=== PATIENT | female | born 1935 | race African-American/Black ===

== ENCOUNTER 2016-05-30 18:06 | Emergency (ER) | payer MEDICARE ==
[~2016-05-30] VITALS: Ht 160 cm; Wt 134.0 kg
[~2016-05-30 18:06] MED LIST: AMIT50TA13 PO; DARV PO; GLIM1 PO; LORT5TAB PO; MELO7.5T PO; MEVA40TA6 PO; PRIN10TA PO; [UNRECOGNIZED DRUG - CODE] PO
[2016-05-30 18:09] VITALS: BP 141/74; PULSE 99; RESP 16; TEMP 98.7; O2SAT 97
--- NOTE | 2016-05-30 20:43 | PD ---
HPI Chief Complaint: [facility] Nurse Problem/Complaint Time Seen by Provider: 20:17 Travel History International Travel<30 days: No Contact w/Intl Traveler<30days: No Traveled to known affect area: No History of Present Illness HPI The patient is a 80-year-old female G7, P6, [id number] who complains of vaginal bleeding one day last week and then again this afternoon. She denies any syncopal or near-syncopal spells. She has an appointment with her clinical dietitian on Thursday. She has not been getting annual Pap smears. She denies any fever or pelvic pain. PFSH Past Medical History Arthritis: Yes Autoimmune Disease: No Cancer: No High Cholesterol: Yes Diabetes: Yes Diminished Hearing: No Gastrointestinal Disorders: No Headaches: Yes Hypertension: Yes Respiratory: No Menopausal: Yes Tubal Ligation: Yes Past Surgical History Gynecologic Surgery: Yes Family History Family Hypercholesterolemia: Yes Social History Alcohol Use: Yes (BEER ) Tobacco Use: No Substance Use: No Allergies-Medications (Allergen,Severity, Reaction): Coded Allergies: Shellfish (Verified Allergy, Severe, SWELLING, DYSPNEA, 05/30/16) Reported Meds & Prescriptions Reported Meds & Active Scripts Active Reported Fish Oil ([place]-3 Fatty Acids) 1,000 Mg Cap 1,000 Mg PO DAILY Zetia (Ezetimibe) 10 Mg Tab 10 Mg PO DAILY Spironolactone-Hydrochlorothiazide 25-25 Mg Tab 1 Tab PO DAILY Aspirin 325 Mg Tab 325 Mg PO DAILY Iron (Ferrous Sulfate) 325 Mg Tab 325 Mg PO BIDPC Take after a meal. Calcium 600 with Vitamin 600-400 mg-Unit (Calcium Carbonate-Vitamin D) 1 Chw Chw 600 Mg PO BID Lisinopril 10 Mg Tab 10 Mg PO DAILY Amaryl (Glimepiride) 2 Mg Tab 2 Mg PO BIDAC Elavil (Amitriptyline HCl) 25 Mg Tab 50 Mg PO HS Review of Systems Except as stated in HPI: all other systems reviewed are Neg Physical Exam Narrative GENERAL: The patient is alert, obese, oriented 3 in no apparent distress. Her vital vital signs show 141/74 blood pressure and a heart rate of 99 and are otherwise normal. SKIN: Warm and dry. HEAD: Atraumatic. Normocephalic. EYES: Pupils equal and round. No scleral icterus. No injection or drainage. ENT: No nasal bleeding or discharge. Mucous membranes pink and moist. NECK: Trachea midline. No JVD. CARDIOVASCULAR: Regular rate and rhythm. No murmur appreciated. RESPIRATORY: No accessory muscle use. Clear to auscultation. Breath sounds equal bilaterally. GASTROINTESTINAL: Abdomen soft, non-tender, nondistended. Hepatic and splenic margins not palpable. No guarding or rebound is present. MUSCULOSKELETAL: No obvious deformities. No clubbing. No cyanosis. No edema. NEUROLOGICAL: Awake and alert. No obvious cranial nerve deficits. Motor grossly within normal limits. Normal speech. PSYCHIATRIC: Appropriate mood and affect; insight and judgment normal. GENITOURINARY: Normal external genitalia without lesions or erythema. Vaginal vault with a small amount of blood or drainage. Cervical os was closed with bloody drainage. No cervical motion tenderness. Uterus nontender and nonenlarged. Bilateral adnexa nontender without masses. The bleeding from the cervical os is extremely slow. Data Data Last Documented VS Vital Signs Date Time Temp Pulse Resp B/P Pulse Ox O2 Delivery O2 Flow Rate FiO2 05/30/16 21:10 18 05/30/16 21:10 89 138/64 96 Room Air 05/30/16 18:09 98.7 Orders Complete Blood Count With Diff (05/30/16 20:37) Comprehensive Metabolic Panel (05/30/16 20:37) Labs Laboratory Tests Test 05/30/16 21:55 White Blood Count 10.2 TH/MM3 Red Blood Count 4.25 MIL/MM3 Hemoglobin 11.5 GM/DL Hematocrit 34.5 % Mean Corpuscular Volume 81.1 FL Mean Corpuscular Hemoglobin 27.1 PG Mean Corpuscular Hemoglobin 33.3 % Concent Red Cell Distribution Width 15.0 % Platelet Count 250 TH/MM3 Mean Platelet Volume 8.3 FL Neutrophils (%) (Auto) 70.0 % Lymphocytes (%) (Auto) 23.3 % Monocytes (%) (Auto) 3.6 % Eosinophils (%) (Auto) 0.8 % Basophils (%) (Auto) 2.3 % Neutrophils # (Auto) 7.1 TH/MM3 Lymphocytes # (Auto) 2.4 TH/MM3 Monocytes # (Auto) 0.4 TH/MM3 Eosinophils # (Auto) 0.1 TH/MM3 Basophils # (Auto) 0.2 TH/MM3 CBC Comment DIFF FINAL Differential Comment Sodium Level 138 MEQ/L Potassium Level 4.4 MEQ/L Chloride Level 105 MEQ/L Carbon Dioxide Level 23.4 MEQ/L Anion Gap 10 MEQ/L Blood Urea Nitrogen 41 MG/DL Creatinine 1.80 MG/DL Estimat Glomerular Filtration 33 ML/MIN Rate Random Glucose 129 MG/DL Calcium Level 9.6 MG/DL Total Bilirubin 0.2 MG/DL Aspartate Amino Transf 16 U/L (AST/SGOT) Alanine Aminotransferase 19 U/L (ALT/SGPT) Alkaline Phosphatase 78 U/L Total Protein 8.9 GM/DL Albumin 3.1 GM/DL MDM Medical Decision Making Medical Screen Exam Complete: Yes Emergency Medical Condition: Yes Medical Record Reviewed: Yes Interpretation(s) The CBC shows a hemoglobin of 11.5 and hematocrit of 34.5. These values are actually a slight improvement over the March 2009 hemoglobin and hematocrit. The complete metabolic profile shows a BUN of 41, creatinine 1.8 and total protein of 8.9 and GFR 33 but is otherwise unremarkable. Differential Diagnosis Anemia, electrolyte disorder, uterine bleeding etiology undetermined Narrative Course The patient has actually increased her hemoglobins since 2008. It is suspected that she is not bleeding a lot from my clinical observation as well as for comparison of hemoglobins. Plan: The patient is given her laboratory work and she will follow up as scheduled on Thursday with her clinical dietitian. Impression: Uterine bleeding etiology undetermined. Diagnosis Primary Impression: Abnormal uterine bleeding Additional Instructions: As we discussed, take the laboratory work to your clinical dietitian and do not miss that appointment. If you start passing large volumes of blood you will need to return to emergency department. Disposition: 01 DISCHARGE HOME Condition: Stable Gonsalo Erwin MD May 30, 2016 20:43
[2016-05-30 21:10] VITALS: BP 138/64; PULSE 89; RESP 18; O2SAT 96
[2016-05-30] MEDS ORDERED: CALCCHW5 PO (21:21)
[2016-05-30] MEDS ORDERED: FERR1TAB36 PO (21:21)
[2016-05-30] MEDS ORDERED: ASPI325T PO (21:21)
[2016-05-30] MEDS ORDERED: LISI10TA3 PO (21:21)
[2016-05-30] MEDS ORDERED: SPIR25TA3 PO (21:21)
[2016-05-30] MEDS ORDERED: AMIT1TAB79 PO (21:21)
[2016-05-30] MEDS ORDERED: ZETI10TA5 PO (21:21)
[2016-05-30] MEDS ORDERED: AMAR2TAB PO (21:21)
[2016-05-30] MEDS ORDERED: FISH1000 PO (21:21)
[2016-05-30 22:01] LABS: AUTOMATED NEUTROPHIL # 7.1 TH/MM3 (1.8-7.7); BASOPHIL # 0.2 TH/MM3 (0-0.2); BASOPHIL % 2.3 % (0.0-2.0); EOSINOPHIL # 0.1 TH/MM3 (0-0.4); EOSINOPHIL % 0.8 % (0.0-4.0); HEMATOCRIT 34.5 % (35.0-46.0); HEMO FLAGS DIFF FINAL; LYMPH % 23.3 % (9.0-44.0); LYMPHOCYTE # 2.4 TH/MM3 (1.0-4.8); MEAN CELL VOLUME 81.1 FL (80.0-100.0); MEAN CORPUSCULAR HEMOGLOBIN 27.1 PG (27.0-34.0); MEAN CORPUSCULAR HGB CONC 33.3 % (32.0-36.0); MONO % 3.6 % (0.0-8.0); PLATELET COUNT 250 TH/MM3 (150-450); RED BLOOD COUNT 4.25 MIL/MM3 (4.00-5.30); WHITE BLOOD COUNT 10.2 TH/MM3 (4.0-11.0)
[2016-05-30 22:17] LABS: CHLORIDE 105 MEQ/L (98-107); POTASSIUM 4.4 MEQ/L (3.5-5.1); SODIUM (NA) 138 MEQ/L (136-145)
[2016-05-30 22:20] VITALS: BP 149/62; PULSE 83; RESP 18; O2SAT 100
[2016-05-30 22:20] LABS: ANION GAP 10 MEQ/L (5-15); BICARBONATE 23.4 MEQ/L (21.0-32.0)
[2016-05-30 22:21] LABS: BLOOD UREA NITROGEN 41 MG/DL (7-18)
[2016-05-30 22:24] LABS: ALT (GPT) 19 U/L (10-53); AST (GOT) 16 U/L (15-37); GLOMERULAR FILTRATION RATE 33 ML/MIN (>89)
[2016-05-30 22:25] LABS: TOTAL BILIRUBIN ADULT 0.2 MG/DL (0.2-1.0)
[2016-05-30 22:26] LABS: ALKALINE PHOSPHATASE 78 U/L (45-117)
[2016-05-30 23:15] VITALS: TEMP 97.8
[2016-09-01] MEDS ORDERED: GLIM1TAB PO (10:07)
[2016-09-01] MEDS ORDERED: TRAM50TA PO (10:07)
[2016-09-01] MEDS ORDERED: NYST100084 TOPICAL (10:07)
[2016-09-01] MEDS ORDERED: MEDR10TA7 PO (10:07)
== END 2016-05-30 23:19 | disposition home or self-care (01) ==
LOC: EDBD → PHED 18:06
DX: N93.9 Abnormal uterine and vaginal bleeding, unspecified (principal)
CPT/HCPCS: 80053; 85025; 99284

== ENCOUNTER → 2016-06-04 | Day surgery (SDC) | payer MEDICARE ==
[~2016-06-04] VITALS: Ht 160 cm; Wt 131.8 kg
[~2016-06-04] MED LIST changes: +AMAR2TAB PO; +AMIT1TAB79 PO; -AMIT50TA13 PO; +ASPI325T PO; +CALCCHW5 PO; +CLINDAMYCIN 600 MG/NS 100 ML IV SCH; -DARV PO; +DO NOT ADM ANY ANTICOAGULANT DRUGS XX PRN; +FAMOTIDINE 20 MG/2 ML VIAL ONE; +FERR1TAB36 PO; +FISH1000 PO; -GLIM1 PO; +GLIM1TAB PO; +HYDR-3516 PO; +IBUPROFEN 600 MG TAB PO PRN; +INSULIN HUMAN REGULAR 1,000 UNITS/10 ML VIAL SQ PRN; +LACTATED RINGER'S 1000 ML INJ 1,000 ML IV SCH; +LACTATED RINGER'S 1000 ML IV SCH; +LEVOFLOXACIN 500 MG PREMIX INJ 100 ML IV SCH; +LISI10TA3 PO; -LORT5TAB PO; +MEDR10TA7 PO; -MELO7.5T PO; +METOPROLOL TARTRATE 25 MG TAB PO PRN; -MEVA40TA6 PO; +MIDAZOLAM HCL 2 MG/2 ML VIAL ONE; +MORPHINE SULFATE 4 MG/ML INJ IV PUSH PRN; +NYST100084 TOPICAL; +ONDANSETRON HCL 4 MG/2 ML VIAL IV PUSH ONE; +ONDANSETRON HCL 4 MG/2 ML VIAL IVP PRN; +PHENYLEPH/NS 1000 MCG/10 ML SYR IV ONE; -PRIN10TA PO; +PROMETHAZINE INJ 25 MG/ML VIAL IM PRN; +PROPOFOL 200 MG/20 ML AMP IV ONE; +SODIUM CHLORID 0.9% 500 ML IV SCH; +SODIUM CHLORIDE 0.9% FLUSH 5 ML FLUSH FLUSH PRN; +SODIUM CHLORIDE 0.9% FLUSH 5 ML FLUSH FLUSH SCH; +SODIUM CHLORIDE 0.9% INJ 100 ML ONE; +SPIR25TA3 PO; +TRAM50TA PO; +WALKER WHEELS/F1 MIS; +ZETI10TA5 PO; +[UNRECOGNIZED DRUG - CODE]; -[UNRECOGNIZED DRUG - CODE] PO; +diphenhydrAMINE HCL 25 MG CAP PO PRN; +oxyCODONE/ACETAMINOPHEN 5 MG/325 MG TAB PO PRN
[2016-06-04 07:19] VITALS: BP 112/55; PULSE 87; RESP 16; TEMP 97.1; O2SAT 98
[2016-06-04 10:20] VITALS: BP 139/66; PULSE 75; RESP 16; TEMP 97; O2SAT 99
--- NOTE | 2016-06-04 15:48 | EKG ---
Date Performed: 06/04/2016 Time Performed: 07:06:18 PTAGE: 80 years EKG: Sinus rhythm LOW QRS VOLTAGE IN PRECORDIAL LEADS MINIMAL VOLTAGE CRITERIA FOR LVH, CONSIDER NORMAL VARIANT NONSPE CIFIC T-WAVE ABNORMALITY Compared to prior tracing no significant change BORDERLINE ECG PREVIOUS TRACING : 03/20/2009 16.23 DOCTOR: Cynthia Abraham Interpretating Date/Time 06/04/2016 15:45:04
--- NOTE | 2016-06-06 22:05 | MP ---
cc: HORACE BAEZ D.O.,KARYNA Diamond MD DATE OF SURGERY: 06/04/2016 PREOPERATIVE DIAGNOSIS: Postmenopausal bleeding, history of diabetes mellitus, morbid obesity. PROCEDURE Exam under anesthesia, diagnostic hysteroscopy, fractional D&C. POSTOPERATIVE DIAGNOSIS Postmenopausal bleeding, history of diabetes mellitus, morbid obesity. SURGEON: Dr. Nate Vu. ANESTHESIA: General with LMA placement. ESTIMATED BLOOD LOSS Minimal, less than 10 cc DRAINS: None. OPERATIVE FINDINGS The patient had atrophic appearing genitalia. Cervix is flush with the vaginal vault. There is no focal abnormality of the exocervix. The endometrial cavity was enlarged with irregular densities throughout suggesting neoplasm. The uterus sounded to 9 cm and was anteverted, mid position, mobile, not fixed. There is no parametrial thickening. There is no adenopathy in the pelvis. INDICATIONS FOR PROCEDURE The patient presented to the office with a history of recent postmenopausal bleeding. Ultrasound revealed thickened endometrial cavity. Recommendations were to proceed with hysteroscopic exam and biopsy. The patient consented. She received clindamycin and Levaquin as a prophylactic antibiotic. PROCEDURE DESCRIPTION The patient was taken to the operating room in stable condition, underwent general anesthesia with LMA placement. She was carefully positioned in dorsolithotomy position with candy-cane stirrups. She had sequentials placed on lower extremities for VTE prophylaxis. She was carefully positioned and padded where appropriately needed. After she was prepped and draped time-out was conducted, agreed by all present in the room. Simple bimanual exam revealed the findings stated above. [place] retractor was used easily to visualize the cervix, single-tooth tenaculum was attached anteriorly and an endocervical curetting was obtained and sent as separate specimen permanent. The uterine sound was placed gently to about 9 cm in the midline. The cervix was then dilated to accommodate a 5 mm rigid hysteroscope using normal saline as a distension media. The findings were described above. This was followed by curettage of the cavity and then use of a polyp forcep to remove any remaining tissue within the cavity. All tissue was sent as a permanent specimen as endometrial biopsy. At the completion of the case there was no bleeding. The tenaculum site was dry. The patient was stable. She was taken to the recovery room extubated on room air. Final count was correct. MD FAWN Omalley/VU /8:54 AM /9:56 PM
== END | disposition home or self-care (01) ==
LOC: HSDC 06:04
PROVIDERS: ATTEND Obstetrics & Gynecology
DX: N95.0 Postmenopausal bleeding (principal); N84.1 Polyp of cervix uteri; I10 Essential (primary) hypertension; E11.9 Type 2 diabetes mellitus without complications
CPT/HCPCS: 00952; 36415; 58558; 86850; 86900; 86901; 88305; 93005; J1956; J2250; J2370; J2405

== ENCOUNTER 2016-09-01 09:34 | Observation (INO) | payer MEDICARE ==
[~2016-09-01] VITALS: Ht 162.6 cm; Wt 116.4 kg
[2016-09-01] VITALS (9 sets, daily range): BP systolic 104–165; BP diastolic 51–84; PULSE 68–89; RESP 18–24; TEMP 97.5–98.1; O2SAT 94–99
[~2016-09-01 09:34] MED LIST changes: -CLINDAMYCIN 600 MG/NS 100 ML IV SCH; -DO NOT ADM ANY ANTICOAGULANT DRUGS XX PRN; -FAMOTIDINE 20 MG/2 ML VIAL ONE; -GLIM1TAB PO; -HYDR-3516 PO; -IBUPROFEN 600 MG TAB PO PRN; -INSULIN HUMAN REGULAR 1,000 UNITS/10 ML VIAL SQ PRN; -LACTATED RINGER'S 1000 ML INJ 1,000 ML IV SCH; -LACTATED RINGER'S 1000 ML IV SCH; -LEVOFLOXACIN 500 MG PREMIX INJ 100 ML IV SCH; -MEDR10TA7 PO; -METOPROLOL TARTRATE 25 MG TAB PO PRN; -MIDAZOLAM HCL 2 MG/2 ML VIAL ONE; -MORPHINE SULFATE 4 MG/ML INJ IV PUSH PRN; -NYST100084 TOPICAL; -ONDANSETRON HCL 4 MG/2 ML VIAL IV PUSH ONE; -ONDANSETRON HCL 4 MG/2 ML VIAL IVP PRN; -PHENYLEPH/NS 1000 MCG/10 ML SYR IV ONE; -PROMETHAZINE INJ 25 MG/ML VIAL IM PRN; -PROPOFOL 200 MG/20 ML AMP IV ONE; -SODIUM CHLORID 0.9% 500 ML IV SCH; -SODIUM CHLORIDE 0.9% FLUSH 5 ML FLUSH FLUSH PRN; -SODIUM CHLORIDE 0.9% FLUSH 5 ML FLUSH FLUSH SCH; -SODIUM CHLORIDE 0.9% INJ 100 ML ONE; -TRAM50TA PO; -WALKER WHEELS/F1 MIS; -[UNRECOGNIZED DRUG - CODE]; -diphenhydrAMINE HCL 25 MG CAP PO PRN; -oxyCODONE/ACETAMINOPHEN 5 MG/325 MG TAB PO PRN
[2016-09-01] MEDS ORDERED: TRAM50TA PO ×2 (10:07)
[2016-09-01] MEDS ORDERED: GLIM1TAB PO ×2 (10:07)
[2016-09-01] MEDS ORDERED: MEDR10TA7 PO ×2 (10:07)
[2016-09-01] MEDS ORDERED: NYST100084 TOPICAL ×2 (10:07)
[2016-09-01] MEDS ORDERED: SODIUM CHLOR 0.9% 1000 ML INJ 1,000 ML IV SCH (10:15)
[2016-09-01] MEDS ORDERED: ONDANSETRON HCL 4 MG/2 ML VIAL IV SCH (10:15)
[2016-09-01] MEDS ORDERED: DIAZEPAM 10 MG TAB PO SCH (10:15)
[2016-09-01] MEDS ORDERED: ceFAZolin 2 GM PREMIX 50 ML IV SCH (10:15)
[2016-09-01] MEDS ORDERED: KETOROLAC TROMETHAMINE 30 MG/ML (IVP) VIAL IV PUSH SCH (10:15)
[2016-09-01 11:15] LABS: AUTOMATED NEUTROPHIL # 6.9 TH/MM3 (1.8-7.7); BASOPHIL % 0.4 % (0.0-2.0); EOSINOPHIL # 0.1 TH/MM3 (0-0.4); EOSINOPHIL % 1.4 % (0.0-4.0); HEMATOCRIT 27.8 % (35.0-46.0); HEMO FLAGS DIFF FINAL; LYMPH % 22.5 % (9.0-44.0); LYMPHOCYTE # 2.2 TH/MM3 (1.0-4.8); MEAN CELL VOLUME 80.7 FL (80.0-100.0); MEAN CORPUSCULAR HEMOGLOBIN 27.1 PG (27.0-34.0); MEAN CORPUSCULAR HGB CONC 33.5 % (32.0-36.0); MONO % 4.1 % (0.0-8.0); NEUT % 71.6 % (16.0-70.0); PLATELET COUNT 249 TH/MM3 (150-450); RED BLOOD COUNT 3.44 MIL/MM3 (4.00-5.30); RED CELL DISTRIBUTION WIDTH 15.4 % (11.6-17.2); WHITE BLOOD COUNT 9.7 TH/MM3 (4.0-11.0)
[2016-09-01 11:23] LABS: APTT (PATIENT) 26.1 SEC (24.3-30.1); PROTHROMBIN TIME - PATIENT 10.8 SEC (9.8-11.6)
[2016-09-01 11:32] LABS: BICARBONATE 23.3 MEQ/L (21.0-32.0); POTASSIUM 5.1 MEQ/L (3.5-5.1)
[2016-09-01] MEDS ORDERED: fentaNYL CITRATE 250 MCG/5 ML AMP ONE (12:16)
[2016-09-01] MEDS ORDERED: MIDAZOLAM HCL 5 MG/5 ML VIAL ONE (12:16)
[2016-09-01] MEDS ORDERED: MORPHINE SULFATE 30 MG/30 ML PCA IV SCH (12:30)
[2016-09-01] MEDS ORDERED: NALOXONE HCL 0.4 MG/ML AMP IV PRN (12:30)
[2016-09-01] MEDS ORDERED: NITROGLYCERIN 1000 MCG/5 ML VIAL OTHER ONE (13:10)
[2016-09-01] MEDS ORDERED: IODIXANOL 320 MG/ML 50 ML VIAL (for RAD SPEC) I-ARTERIAL ONE (14:30)
[2016-09-01] MEDS ORDERED: LEVOFLOXACIN 500 MG TAB PO ONE (14:30)
--- NOTE | 2016-09-01 14:30 | PD.RAD ---
Post Procedure Progress Note Pre Procedure Diagnosis: (1) Abnormal uterine bleeding Post Procedure Diagnosis: (1) Abnormal uterine bleeding Procedure Date: September 01, 2016 Supervising Radiologist: Boubacar Lee JR Proceduralist/Assist: Kirstie Spencer, RT(R)(), Elissa Carson RT(R)(CV) Anesthesia: Conscious Sedation Plan of Activity Patient to Unit: [facility] Patient Condition: Good See PACS Report for procedural detail/treatment Vascular-Arterial Procedure Procedure 1 Procedure(s): Embolization Access Access Site(s): Right Femoral Artery Closure Site(s): Right vascular closure device Findings: Patient postmenapausal with multiple fibroids and bleeding. Bx neg for atypia/ malignancy. Angio shows very small left UA which was embolized. No UA could be identified on the right so no embolization performed on that side. Angioseal closure device used. Jr. Jesus,Boubacar White MD September 01, 2016 14:30
--- NOTE | 2016-09-01 14:52 | RADRPT ---
EXAM DATE/TIME: 09/01/2016 12:47 [facility] COMPARISON: No previous studies available for comparison. INDICATIONS : Postmenopausal patient with multiple uterine fibroids and persistent bleeding. Biopsies are negative for atypia/malignancy. [place] requested.. MEDICAL HISTORY : HTN High cholesterol Headaches SURGICAL HISTORY : Tubal ligation ENCOUNTER: Initial ACUITY: 3 months PAIN SCORE: 3/10 LOCATION: Lower back FLUORO TIME: 13.5 minutes IMAGE SERIES: 19 ACCESS SITE: Right Femoral artery SEDATION TIME: 45 minutes CONTRAST: 1.) 130 cc Visipaque (iodixanol) MEDICATION(S): 1.) 3 mg midazolam (Versed) IV 2.) 150 mcg fentanyl (Sublimaze) IV 3.) 200 mcg Nitroglycerine IART Intra-procedural antibiotics were given as prescribed above. DEVICE(S): 1.) Left Uterine artery 355-500 PVA 2.) Right common femoral artery Syvek pad PROCEDURE : 1. Ultrasound-guided puncture of the right common femoral artery. 2. Left internal iliac artery arteriogram. 3. Left uterine artery arteriogram. 4. Intra-arterial spasmolytic administration 5. Embolization of the left uterine artery. 6. Right internal iliac artery arteriogram. 7. Right anterior division internal iliac artery angiogram. 8. Conscious sedation with continuous EKG and oximetry monitoring. The risks, benefits and alternatives to the procedure were explained and verbal and written consent w as obtained. The site was prepped in sterile fashion. Full sterile technique was used, including ca p, mask, sterile gloves and gown and a large sterile sheet. Hand hygiene and 2% chlorhexidine and/or betadine/alcohol prep was utilized per protocol for cutaneous antisepsis. The skin and subcutaneous tissues were infiltrated with local anesthetic solution. With ultrasound and fluoroscopic guidance the right femoral artery was punctured. An Omni Flush cath eter was placed over aortic bifurcation into the left internal iliac artery where imaging was perform ed to identify the uterine artery. Uterine artery is fairly small in caliber and very prone to spasm. Intra-arterial nitroglycerin glycerin was administered to reduce vasospasm. The uterine artery was s ubsequent catheterized and angiography was performed. Embolization was performed using the prescribe d size of polyvinyl alcohol to complete stasis. Followup angiography from the internal iliac vessel demonstrates complete stasis and no antegrade flow within the left uterine artery. An Omni Flush catheter was then used to select the ipsilateral right internal iliac artery where imag ing was performed to try and identify the uterine artery. The right uterine artery could not be jorge rly identified. It is likely atrophic. No embolization performed on this side. Conscious sedation was performed with the prescribed dosages and duration as above in the presence of an independent trained radiology nurse to assist in the monitoring of the patient. EKG and oximetry remained stable throughout the procedure. The patient tolerated the procedure well and there were n o complications. The patient was sent to post anesthesia recovery in stable condition. CONCLUSION: 1. Small left uterine artery successfully embolized. 2. Right uterine artery could not be identified and felt atrophic. Boubacar Lee Jr., MD on September 01, 2016 at 14:44 Board Certified Radiologist. This report was verified electronically.
[2016-09-01] MEDS ORDERED: ONDANSETRON HCL 4 MG/2 ML VIAL IV PUSH PRN (15:00)
[2016-09-01] MEDS ORDERED: cloNIDine HCL 0.1 MG TAB PO PRN (15:00)
--- NOTE | 2016-09-01 15:10 | HHI.HP ---
HPI Service [facility] Hospitalists Primary Care Physician Ron Bee Admission Diagnosis uterine fibroid bleeding Chief Complaint: uterine fibroid bleeding Travel History International Travel<30 Days: No Contact w/Intl Traveler <30 Da: No Traveled to Known Affected Are: No History of Present Illness Pt is 81 yo with uterine fibroids and bleeding. 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 I am seeing her in [facility] after the procedure and she seems comfortable. her daughters and other family members are present and worried that she suddenly developed left foot and lower ext pain/swelling yesterday. Pt having difficult time with ambulation. denies hx of dvt/pe. has been taking medroxyprogesterone since "May for uterine bleeding." Review of Systems Other uterine bleeding left foot/leg pain/swelling x 1 day. Past Family Social History Past Medical History dm 2. hgba1c 05/20 6.1 ckd stage 4. gfr 29 and cr 1.8 in 05/20 htn uterine fibroids and bleeding tubal ligation. Reported Medications Medroxyprogesterone Acetate 10 Mg Tab 10 Mg PO DAILY Start day 21 Nystatin Topical 100,000 unit/gm Oint 1 Applic TOPICAL Q12HR Tramadol (Tramadol HCl) 50 Mg Tab 50 Mg PO BID PRN Glimepiride 1 Mg Tab 1 Mg PO BID Take with breakfast or first main meal Fish Oil ([place]-3 Fatty Acids) 1,000 Mg Cap 1,000 Mg PO DAILY Zetia (Ezetimibe) 10 Mg Tab 10 Mg PO DAILY Spironolactone-Hydrochlorothiazide 25-25 Mg Tab 1 Tab PO DAILY Aspirin 325 Mg Tab 325 Mg PO DAILY Iron (Ferrous Sulfate) 325 Mg Tab 325 Mg PO BIDPC Take after a meal. Lisinopril 10 Mg Tab 10 Mg PO DAILY Elavil (Amitriptyline HCl) 25 Mg Tab 50 Mg PO HS Allergies: Coded Allergies: Shellfish (Verified Allergy, Severe, SWELLING, DYSPNEA, 09/01/16) Family History nc Social History no etoh/tob Physical Exam Vital Signs nad lying in bed heart reg lung cta abd s/nt ext left foot slightly swollen and warmer to touch than on the right. Vital Signs Date Time Temp Pulse Resp B/P Pulse Ox O2 Delivery O2 Flow Rate FiO2 09/01/16 09:55 98.0 89 20 165/78 95 09/01/16 09:45 Room Air 95 Laboratory Laboratory Tests Test 09/01/16 11:01 White Blood Count 9.7 Red Blood Count 3.44 Hemoglobin 9.3 Hematocrit 27.8 Mean Corpuscular Volume 80.7 Mean Corpuscular Hemoglobin 27.1 Mean Corpuscular Hemoglobin 33.5 Concent Red Cell Distribution Width 15.4 Platelet Count 249 Mean Platelet Volume 7.9 Neutrophils (%) (Auto) 71.6 Lymphocytes (%) (Auto) 22.5 Monocytes (%) (Auto) 4.1 Eosinophils (%) (Auto) 1.4 Basophils (%) (Auto) 0.4 Neutrophils # (Auto) 6.9 Lymphocytes # (Auto) 2.2 Monocytes # (Auto) 0.4 Eosinophils # (Auto) 0.1 Basophils # (Auto) 0.0 CBC Comment DIFF FINAL Differential Comment Prothrombin Time 10.8 Prothromb Time International 1.0 Ratio Activated Partial 26.1 Thromboplast Time Sodium Level 136 Potassium Level 5.1 Chloride Level 104 Carbon Dioxide Level 23.3 Anion Gap 9 Blood Urea Nitrogen 41 Creatinine 2.28 Estimat Glomerular Filtration 25 Rate Random Glucose 108 Calcium Level 9.6 Result Diagram: 09/01/16 1101 09/01/16 1101 Assessment and Plan Problem List: (1) Abnormal uterine bleeding Status: Acute Plan: Pt admitted for dysfunctional uterine bleeding from fibroids s/p uterine artery embolization 09/01 Pt noted to have a/ckd 4 also some acute swelling and pain of left foot and lower leg pain 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 also the diuretics. (2) Leg swelling Status: Acute Plan: see above (3) Acute renal failure superimposed on stage 4 chronic kidney disease Status: Acute Plan: see above (4) HTN (hypertension) Status: Chronic Plan: see above (5) DM2 (diabetes mellitus, type 2) Status: Chronic Plan: cont oha. ssi. Jacky Soto MD September 01, 2016 15:10
[2016-09-01] MEDS ORDERED: DEXTROSE 50% IN WATER 50 ML VIAL(D50) IV PUSH PRN (15:45)
[2016-09-01] MEDS ORDERED: GLUCAGON 1 MG/ML VIAL OTHER PRN (15:45)
--- NOTE | 2016-09-01 15:58 | RADRPT ---
EXAM DATE/TIME: 09/01/2016 15:34 [facility] COMPARISON: No previous studies available for comparison. INDICATIONS : Left leg swelling. MEDICAL HISTORY : Hypercholesterolemia. Hypertension. Kidney disease. Arthritis. Diabetes. Uterine fibroids. SURGICAL HISTORY : Tubal ligation. Endometrial D&C. ENCOUNTER: Initial ACUITY: 1 day PAIN SCORE: 3/10 LOCATION: Left leg. TECHNIQUE: Venous ultrasound of the leg was performed from the inguinal ligament to the proximal calf. Real-jignesh e, color Doppler and spectral tracing, compression and augmentation techniques were used. FINDINGS: There is normal compressibility of the deep venous system from the inguinal region to the proximal ca lf. No echogenic clot is seen in the lumen of the common femoral, femoral, popliteal, and posterior tibial veins. There is a normal response of the venous system to proximal and distal augmentation an d respiration. CONCLUSION: Normal examination. Lewis Madsen MD on September 01, 2016 at 15:56 Board Certified Radiologist. This report was verified electronically.
--- NOTE | 2016-09-01 17:16 | RADRPT ---
EXAM DATE/TIME: 09/01/2016 14:56 [facility] COMPARISON: No previous studies available for comparison. INDICATIONS : Left ankle pain, denies injury MEDICAL HISTORY : None. SURGICAL HISTORY : None. ENCOUNTER: Initial ACUITY: 3 days PAIN SCORE: 7/10 LOCATION: Left Ankle FINDINGS: There is severe degenerative change in the hindfoot and tarsal joints. The ankle itself is intact wit hout evidence of fracture, dislocation or destructive change. A small plantar heel spur is present. 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 No definite acute bony process. Lewis Madsen MD on September 01, 2016 at 17:13 Board Certified Radiologist. This report was verified electronically.
[2016-09-01] MEDS: FERROUS SULFATE 325 MG (65 MG ELEMENTAL IRON) TAB PO SCH (18:19)
[2016-09-01] MEDS ORDERED: GLIMEPIRIDE 1 MG TAB PO SCH (21:00)
[2016-09-01] MEDS ORDERED: AMITRIPTYLINE HCL 50 MG PO SCH (21:00)
[2016-09-01] MEDS ORDERED: AMITRIPTYLINE HCL 50 MG TAB PO SCH (21:00)
[2016-09-01] MEDS: INSULIN ASPART SUPPLEMENTAL SCALE SQ SCH (21:27)
[2016-09-01] MEDS: PCA - TOTAL MG MORPHINE DELIVERED PER SHIFT SCH (22:00)
[2016-09-02] VITALS: BP 107/47; PULSE 91; RESP 20; TEMP 98.3; O2SAT 96
[2016-09-02 05:30] VITALS: BP 97/51; PULSE 79; RESP 20; TEMP 98.3; O2SAT 95
[2016-09-02] MEDS: PCA - TOTAL MG MORPHINE DELIVERED PER SHIFT SCH (06:00)
[2016-09-02 06:45] LABS: BICARBONATE 21.1 MEQ/L (21.0-32.0); POTASSIUM 5.1 MEQ/L (3.5-5.1)
[2016-09-02] MEDS: INSULIN ASPART SUPPLEMENTAL SCALE SQ SCH ×2 (06:56→11:00)
[2016-09-02] MEDS ORDERED: ACETAMINOPHEN/HYDROcodone 325 MG/5 MG TAB PO PRN ×2 (07:45)
[2016-09-02] MEDS ORDERED: HYDR-3516 PO (08:26)
[2016-09-02 08:56] VITALS: BP 121/60; PULSE 95; RESP 18; TEMP 98.1
[2016-09-02] MEDS ORDERED: NON-FORMULARY DRUG (Omega-3 Fatty Acids (Fish Oil) 1,000 MG) PO SCH (09:00)
[2016-09-02] MEDS ORDERED: GLIMEPIRIDE 1 MG TAB PO SCH (09:00)
[2016-09-02] MEDS ORDERED: EZETIMIBE 10 MG TAB PO SCH (09:00)
[2016-09-02] MEDS ORDERED: medroxyPROGESTERone ACETATE 10 MG TAB PO SCH (09:00)
[2016-09-02] MEDS: FERROUS SULFATE 325 MG (65 MG ELEMENTAL IRON) TAB PO SCH (09:36)
--- NOTE | 2016-09-02 10:52 | HHI.PR ---
Subjective Remarks pt swelling left foot much better. able to put weight on the foot and walk with slight pain. Objective Vitals heart reg lungc ta abd s/nt ext left foot swelling improved. mild warmth. pulses intact. Vital Signs Date Time Temp Pulse Resp B/P Pulse Ox O2 Delivery O2 Flow Rate FiO2 09/02/16 08:56 98.1 95 18 121/60 09/02/16 06:00 16 09/02/16 05:30 98.3 79 20 97/51 95 09/02/16 00:00 98.3 91 20 107/47 96 09/01/16 22:00 20 09/01/16 20:00 98.1 79 20 118/54 99 09/01/16 20:00 Room Air 09/01/16 19:00 97.5 80 24 127/58 99 09/01/16 17:50 97.9 84 22 106/56 09/01/16 15:57 20 09/01/16 15:00 75 18 105/51 94 09/01/16 14:45 76 18 118/60 94 09/01/16 14:30 77 18 109/84 98 09/01/16 14:15 78 18 124/58 98 09/01/16 14:00 97.5 68 18 104/52 98 09/01/16 09/01/16 09/02/16 15:00 23:00 07:00 Intake Total 184 ml Output Total 175 ml Balance 9 ml Intake IV Total 184 ml Output Urine Total 175 ml # Voids 1 Result Diagram: 09/01/16 1101 09/02/16 0457 A/P Problem List: (1) Abnormal uterine bleeding Status: Acute Plan: Pt admitted for dysfunctional uterine bleeding from fibroids s/p uterine artery embolization 09/01 Pt noted to have a/ckd 4 also some acute swelling and pain of left foot and lower leg u/s left leg neg for dvt xray shows alot of degenerative dz in hindfoot on left swelling and pain down today but not completely resolved If better then plan for d/c home later today and f/u pcp (2) Leg swelling Status: Acute Plan: see above (3) Acute renal failure superimposed on stage 4 chronic kidney disease Status: Acute Plan: see above (4) HTN (hypertension) Status: Chronic Plan: see above (5) DM2 (diabetes mellitus, type 2) Status: Chronic Plan: cont oha. ssi. Jacky Soto MD September 02, 2016 10:52
--- NOTE | 2016-09-02 11:41 | HHI.DCPOC ---
Discharge Care Plan Diagnosis: (1) Abnormal uterine bleeding (2) HTN (hypertension) (3) Acute renal failure superimposed on stage 4 chronic kidney disease (4) DM2 (diabetes mellitus, type 2) (5) Leg swelling Goals to Promote Your Health * To prevent worsening of your condition and complications * To maintain your health at the optimal level Directions to Meet Your Goals Take your medications as prescribed Follow your dietary instruction Follow activity as directed Keep your appointments as scheduled Take your immunizations and boosters as scheduled If your symptoms worsen call your PCP, if no PCP go to Urgent Care Center or Emergency Room Smoking is Dangerous to Your Health. Avoid second hand smoke Call the 24-hour hour crisis hotline for domestic abuse at Jacky Soto MD September 02, 2016 11:41
--- NOTE | 2016-09-02 11:42 | HHI.FF ---
Face to Face Verification Diagnosis: (1) Abnormal uterine bleeding Physical Therapy Order: Evaluate and Treat, Improve ambulation Home Health Nursing Order: Medical education Signs/symptoms of disease process Nursing assessment with vital signs I have seen patient Caroline Lin on 09/02/16. My clinical findings support the need for the requested home health care services because: Deconditioned w/ increased weakness I certify that my clinical findings support that this patient is homebound because: Unsteady gait/balance Jacky Soto MD September 02, 2016 11:42
[2016-09-02] MEDS ORDERED: WALKER WHEELS/F1 MIS (11:49)
[2016-09-02 11:52] VITALS: BP 116/57; PULSE 78; RESP 18; TEMP 98.2
[2016-09-02] MEDS ORDERED: [UNRECOGNIZED DRUG - CODE] (12:02)
[2016-09-02] MEDS ORDERED: LEVOFLOXACIN 250 MG TAB PO SCH (15:00)
== END 2016-09-02 15:45 | disposition home or self-care (01) ==
LOC: HROP 09:34 → HRIP 09:39 → HSDI 15:13 → HROP 15:13 → H1EA 17:43
PROVIDERS: ADMIT Obstetrics & Gynecology; ATTEND Obstetrics & Gynecology
DX: D25.9 Leiomyoma of uterus, unspecified (principal); N93.8 Other specified abnormal uterine and vaginal bleeding; N18.4 Chronic kidney disease, stage 4 (severe); E11.22 Type 2 diabetes mellitus with diabetic chronic kidney disease; I12.9 Hypertensive chronic kidney disease with stage 1 through stage 4 chronic kidney disease, or unspecified chronic kidney disease; M79.672 Pain in left foot; M79.89 Other specified soft tissue disorders
CPT/HCPCS: 36247; 37243; 73600; 76937; 80048; 82948; 85025; 85610; 85730; 93971; 97162; 99152; 99153; C1760; C1769; C1887; C1894; G0378; G8987; G8988; J0690; J1885; J2250; J2270; J2405; J3010; J7030; Q9967

== ENCOUNTER 2016-09-08 14:43 | Day surgery (SDC) | payer MEDICARE ==
[~2016-09-08 14:43] MED LIST changes: +GLIM1TAB PO; +HYDR-3516 PO; +MEDR10TA7 PO; +NYST100084 TOPICAL; +TRAM50TA PO; +WALKER WHEELS/F1 MIS; +[UNRECOGNIZED DRUG - CODE]
[2016-09-08 15:02] VITALS: BP 199/75; PULSE 82; RESP 20; TEMP 98.7; O2SAT 90
[2016-09-08 15:17] VITALS: BP 113/85; O2SAT 95
--- NOTE | 2016-09-08 23:08 | RADRPT ---
EXAM DATE/TIME: 09/08/2016 00:00 [facility] COMPARISON : No previous studies available for comparison. INDICATIONS : Post UFE F/U OBJECTIVE: Temperature: 98.7 Heart Rate: 82 Blood Pressure: 113/85 Respiratory: 20 Oximetry: 95 PNEUMONIA VACCINE: HISTORY OF PRESENT ILLNESS: Patient is one week status post uterine artery embolization. Denies any problems. Had some cramping e arlier but this has resolved. Had some spotting previously but this has resolved. Has no issues curre ntly. PAST MEDICAL HISTORY : 1. UTERINE BLEEDING PAST SURGICAL HISTORY : 1. UFE SOCIAL HISTORY : PHYSICAL EXAMINATION: General: Patient is awake and alert. No acute distress. Groin: No hematoma. Healing nicely. ASSESSMENT: Patient will status post uterine artery embolization. PLAN: Followup as needed. TIME SPENT: 15 minutes Boubacar Lee Jr., MD on September 08, 2016 at 23:04 Board Certified Radiologist. This report was verified electronically.
== END 2016-09-08 15:30 | disposition home or self-care (01) ==
LOC: HROP 14:43 → HRIP 14:44 → HROP 15:30
PROVIDERS: ATTEND Radiology Body Imaging
DX: Z09 Encounter for follow-up examination after completed treatment for conditions other than malignant neoplasm (principal)

== ENCOUNTER 2016-11-22 20:44 | Emergency (ER) | payer MEDICARE ==
[~2016-11-22] VITALS: Ht 160 cm; Wt 134.0 kg
[~2016-11-22 20:44] MED LIST changes: -AMAR2TAB PO; -CALCCHW5 PO
[2016-11-22 20:49] VITALS: BP 170/83; PULSE 104; RESP 20; TEMP 99.5; O2SAT 100
[2016-11-22] MEDS ORDERED: ONDANSETRON HCL 4 MG/2 ML VIAL IV PUSH ONE (22:00)
[2016-11-22] MEDS ORDERED: MORPHINE SULFATE 4 MG/ML INJ IV PUSH ONE (22:00)
--- NOTE | 2016-11-22 22:02 | PD ---
HPI Chief Complaint: Edema Time Seen by Provider: 21:55 Travel History International Travel<30 days: No Contact w/Intl Traveler<30days: No Traveled to known affect area: No History of Present Illness HPI 81-year-old female presents to the emergency department for evaluation of left leg pain that started on without injury. Patient states the pain has been getting worse. She states the pain is mainly with movement and walking. She also reports bilateral lower leg pain that is new for her. Patient denies any fevers or chills. No chest pain or shortness of breath. No abdominal pain. No nausea, vomiting, diarrhea. Patient states she has not had this pain before. Patient does state the pain is mainly in the hip and thigh, but travels down to the ball of the foot. Patient reports history of hypertension, hyperlipidemia, diabetes. Patient denies any back pain. She denies any history of DVT. PFSH Past Medical History Arthritis: Yes Autoimmune Disease: No Cancer: No Cardiovascular Problems: No High Cholesterol: Yes Diabetes: Yes Patient Takes Glucophage: No Diminished Hearing: No Endocrine: Yes Gastrointestinal Disorders: No Genitourinary: No Headaches: Yes Hepatitis: No Hiatal Hernia: No Hypertension: Yes Immune Disorder: No Musculoskeletal: Yes (ARTHRITIS IN L KNEE) Neurologic: No Psychiatric: No Reproductive: No Respiratory: No Immunizations Current: Yes Thyroid Disease: No Menopausal: Yes Tubal Ligation: Yes Past Surgical History Abdominal Surgery: No AICD: No Cardiac Surgery: No Ear Surgery: No Endocrine Surgery: No Eye Surgery: No Genitourinary Surgery: No Gynecologic Surgery: Yes (TUBAL LIGATION, Endometrial D&C) Joint Replacement: No Oral Surgery: No Pacemaker: No Thoracic Surgery: No Other Surgery: Yes Family History Family Hypercholesterolemia: Yes Social History Alcohol Use: Yes (BEER WEEKENDS) Tobacco Use: No Substance Use: No Allergies-Medications (Allergen,Severity, Reaction): Coded Allergies: Shellfish (Verified Allergy, Severe, SWELLING, DYSPNEA, 11/22/16) Reported Meds & Prescriptions Reported Meds & Active Scripts Active Walker with Front Wheels (Device) 1 Mis Mis 1 Ea .ROUTE DIRECTED Reported Tramadol (Tramadol HCl) 50 Mg Tab 50 Mg PO BID PRN Glimepiride 1 Mg Tab 1 Mg PO BID Take with breakfast or first main meal Fish Oil ([place]-3 Fatty Acids) 1,000 Mg Cap 1,000 Mg PO DAILY Zetia (Ezetimibe) 10 Mg Tab 10 Mg PO DAILY Spironolactone-Hydrochlorothiazide 25-25 Mg Tab 1 Tab PO DAILY Lisinopril 10 Mg Tab 10 Mg PO DAILY Review of Systems Except as stated in HPI: all other systems reviewed are Neg Physical Exam Narrative GENERAL: Well-nourished, well-developed elderly female patient, afebrile. SKIN: Focused skin assessment warm/dry. HEAD: Normocephalic. Atraumatic. EYES: No scleral icterus. No injection or drainage. NECK: Supple, trachea midline. No JVD or lymphadenopathy. CARDIOVASCULAR: Regular rate and rhythm without murmurs, gallops, or rubs. Bilateral radial and pedal pulses are 2+. RESPIRATORY: Breath sounds equal bilaterally. No accessory muscle use. GASTROINTESTINAL: Abdomen soft, non-tender, nondistended. MUSCULOSKELETAL: No cyanosis, or edema. Patient has tenderness over left thigh , left hip. This pain is exacerbated with flexion of the left hip. She has full sensation to distal lower extremities. BACK: Nontender without obvious deformity. No CVA tenderness. No midline spinal tenderness, no paraspinal lumbar musculature pain to palpation. Data Data Last Documented VS Vital Signs Date Time Temp Pulse Resp B/P Pulse Ox O2 Delivery O2 Flow Rate FiO2 11/22/16 22:28 99 18 166/80 100 Room Air 11/22/16 20:49 99.5 Orders Morphine Inj (Morphine Inj) (11/22/16 22:00) Ondansetron Inj (Zofran Inj) (11/22/16 22:00) Iv Access Insert/Monitor (11/22/16 21:52) Complete Blood Count With Diff (11/22/16 21:52) Comprehensive Metabolic Panel (11/22/16 21:52) Prothrombin Time / Inr (Pt) (11/22/16 21:52) Act Partial Throm Time (Ptt) (11/22/16 21:52) B-Type Natriuretic Peptide (11/22/16 21:52) Hip, Uni(Ap&Lat) W Ap Pelvis (11/22/16 ) Femur (Ap & Lat/2vws) (11/22/16 ) Us Leg Venous Doppler Bilat (11/22/16 ) Labs Laboratory Tests Test 11/22/16 22:03 White Blood Count 11.0 TH/MM3 Red Blood Count 3.55 MIL/MM3 Hemoglobin 9.2 GM/DL Hematocrit 28.8 % Mean Corpuscular Volume 81.0 FL Mean Corpuscular Hemoglobin 26.0 PG Mean Corpuscular Hemoglobin 32.1 % Concent Red Cell Distribution Width 16.3 % Platelet Count 281 TH/MM3 Mean Platelet Volume 7.0 FL Neutrophils (%) (Auto) 76.1 % Lymphocytes (%) (Auto) 16.9 % Monocytes (%) (Auto) 4.8 % Eosinophils (%) (Auto) 1.8 % Basophils (%) (Auto) 0.4 % Neutrophils # (Auto) 8.4 TH/MM3 Lymphocytes # (Auto) 1.9 TH/MM3 Monocytes # (Auto) 0.5 TH/MM3 Eosinophils # (Auto) 0.2 TH/MM3 Basophils # (Auto) 0.0 TH/MM3 CBC Comment DIFF FINAL Differential Comment Sodium Level 134 MEQ/L Potassium Level 4.7 MEQ/L Chloride Level 101 MEQ/L Carbon Dioxide Level 25.5 MEQ/L Anion Gap 8 MEQ/L Blood Urea Nitrogen 38 MG/DL Creatinine 1.67 MG/DL Estimat Glomerular Filtration 36 ML/MIN Rate Random Glucose 166 MG/DL Calcium Level 9.4 MG/DL Total Bilirubin 0.3 MG/DL Aspartate Amino Transf 9 U/L (AST/SGOT) Alanine Aminotransferase 16 U/L (ALT/SGPT) Alkaline Phosphatase 89 U/L Total Protein 8.8 GM/DL Albumin 2.7 GM/DL [facility] Medical Decision Making Medical Screen Exam Complete: Yes Emergency Medical Condition: Yes Medical Record Reviewed: Yes Interpretation(s) venous doppler us - CONCLUSION: No deep venous thrombosis in either lower extremity. Differential Diagnosis Muscle strain versus spasm versus DVT versus CHF versus idiopathic edema sciatica Narrative Course 81-year-old female presents to the emergency department for evaluation of left leg pain that started on without injury. CBC, CMP, BNP are ordered and pending. X-ray left hip with pelvis and left femur ordered and pending. Venous Doppler ultrasound of bilateral lower extremities is ordered and pending. CBC shows Hgb 9.2, Hct 28.8. US shows no deep venous thrombosis in either lower extremity. Dr. Castle will follow up won labs and imaging and disposition patient. Shasta Farmer Nov 22, 2016 22:02
[2016-11-22 22:22] LABS: AUTOMATED NEUTROPHIL # 8.4 TH/MM3 (1.8-7.7); BASOPHIL % 0.4 % (0.0-2.0); EOSINOPHIL # 0.2 TH/MM3 (0-0.4); EOSINOPHIL % 1.8 % (0.0-4.0); HEMATOCRIT 28.8 % (35.0-46.0); HEMO FLAGS DIFF FINAL; LYMPH % 16.9 % (9.0-44.0); LYMPHOCYTE # 1.9 TH/MM3 (1.0-4.8); MEAN CORPUSCULAR HGB CONC 32.1 % (32.0-36.0); MONO % 4.8 % (0.0-8.0); NEUT % 76.1 % (16.0-70.0); PLATELET COUNT 281 TH/MM3 (150-450); RED BLOOD COUNT 3.55 MIL/MM3 (4.00-5.30); RED CELL DISTRIBUTION WIDTH 16.3 % (11.6-17.2)
[2016-11-22 22:28] VITALS: BP 166/80; PULSE 99; RESP 18; O2SAT 100
--- NOTE | 2016-11-22 22:40 | RADRPT ---
EXAM DATE/TIME: 11/22/2016 21:59 [facility] COMPARISON: No previous studies available for comparison. INDICATIONS : Bilateral leg edema. MEDICAL HISTORY : Hypercholesterolemia. Hypertension. Renal disease, unspecified. Arthritis. Endocrine disorder. Di abetes. SURGICAL HISTORY : Tubal ligation. Dilation and curettage. ENCOUNTER: Initial ACUITY: 3 days PAIN SCORE: 8/10 LOCATION: Bilateral legs. TECHNIQUE: Venous ultrasound of the left and right leg was performed from the inguinal ligament to the proximal calf. Real-time, color Doppler and spectral tracing, compression and augmentation techniques were us ed. FINDINGS: RIGHT LEG: There is normal compressibility of the deep venous system from the inguinal region to the proximal ca lf. No echogenic clot is seen in the lumen of the common femoral, femoral, popliteal, and posterior tibial veins. There is a normal response of the venous system to proximal and distal augmentation an d respiration. LEFT LEG: There is normal compressibility of the deep venous system from the inguinal region to the proximal ca lf. No echogenic clot is seen in the lumen of the common femoral, femoral and popliteal veins. Poste rior tibial veins not seen. There is a normal response of the venous system to proximal and distal au gmentation and respiration. CONCLUSION: No deep venous thrombosis in either lower extremity. Jaren Anders MD on November 22, 2016 at 22:37 Board Certified Radiologist. This report was verified electronically.
[2016-11-22 22:44] LABS: ANION GAP 8 MEQ/L (5-15); AST (GOT) 9 U/L (15-37); BICARBONATE 25.5 MEQ/L (21.0-32.0); BLOOD UREA NITROGEN 38 MG/DL (7-18); CHLORIDE 101 MEQ/L (98-107); GLOMERULAR FILTRATION RATE 36 ML/MIN (>89); POTASSIUM 4.7 MEQ/L (3.5-5.1); SODIUM (NA) 134 MEQ/L (136-145)
[2016-11-22 22:45] LABS: ALT (GPT) 16 U/L (10-53)
[2016-11-22 22:47] LABS: ALKALINE PHOSPHATASE 89 U/L (45-117); TOTAL BILIRUBIN ADULT 0.3 MG/DL (0.2-1.0)
[2016-11-22 22:49] LABS: APTT (PATIENT) 30.7 SEC (24.3-30.1); PROTHROMBIN TIME - PATIENT 11.1 SEC (9.8-11.6)
--- NOTE | 2016-11-22 23:24 | RADRPT ---
EXAM DATE/TIME: 11/22/2016 22:52 [facility] COMPARISON: No previous studies available for comparison. INDICATIONS : Left hip pain, no known injury MEDICAL HISTORY : None. SURGICAL HISTORY : None. ENCOUNTER: Initial ACUITY: 3 days PAIN SCORE: 10/10 LOCATION: Left hip FINDINGS: Examination of the left hip was performed with AP Pelvis. The primary and secondary trabecular patte rn of the femoral neck is intact. The hip joint is of normal width without significant sclerosis or bony hypertrophy. The acetabulum is grossly intact. CONCLUSION: Unremarkable examination of the left hip. Lewis Madsen MD on November 22, 2016 at 23:22 Board Certified Radiologist. This report was verified electronically.
--- NOTE | 2016-11-22 23:31 | RADRPT ---
EXAM DATE/TIME: 11/22/2016 22:53 [facility] COMPARISON: No previous studies available for comparison. INDICATIONS : Complains of left femur pain. No known injury. MEDICAL HISTORY : None. SURGICAL HISTORY : None. ENCOUNTER: Initial ACUITY: 3 days PAIN SCORE: 10/10 LOCATION: Left femur FINDINGS: There are moderate arthritic changes in the left hip and very severe arthritic changes in the left kn ee. There is no evidence of femur fracture or destructive lesion. The thigh soft tissues are focally unremarkable. CONCLUSION: No acute bony process Lewis Madsen MD on November 22, 2016 at 23:28 Board Certified Radiologist. This report was verified electronically.
[2016-11-23] MEDS ORDERED: oxyCODONE/ACETAMINOPHEN 5 MG/325 MG TAB PO ONE
[2016-11-23] MEDS ORDERED: KETOROLAC TROMETHAMINE 30 MG/ML (IVP) VIAL IV PUSH ONE
[2016-11-23] MEDS ORDERED: MEDR4PAK PO (01:05)
[2016-11-23] MEDS ORDERED: PERC5TAB12 PO (01:05)
--- NOTE | 2016-11-23 01:05 | PD ---
Physical Exam Date Seen by Provider: Nov 23, 2016 Time Seen by Provider: 23:00 Narrative accepted in care Data Data Last Documented VS Vital Signs Date Time Temp Pulse Resp B/P Pulse Ox O2 Delivery O2 Flow Rate FiO2 11/22/16 22:28 99 18 166/80 100 Room Air 11/22/16 20:49 99.5 Orders Morphine Inj (Morphine Inj) (11/22/16 22:00) Ondansetron Inj (Zofran Inj) (11/22/16 22:00) Iv Access Insert/Monitor (11/22/16 21:52) Complete Blood Count With Diff (11/22/16 21:52) Comprehensive Metabolic Panel (11/22/16 21:52) Prothrombin Time / Inr (Pt) (11/22/16 21:52) Act Partial Throm Time (Ptt) (11/22/16 21:52) B-Type Natriuretic Peptide (11/22/16 21:52) Hip, Uni(Ap&Lat) W Ap Pelvis (11/22/16 ) Femur (Ap & Lat/2vws) (11/22/16 ) Us Leg Venous Doppler Bilat (11/22/16 ) Ketorolac Inj (Toradol Inj) (11/23/16 00:00) Oxycodone-Acetamin 5-325 Mg (Percocet (11/23/16 00:00) Labs Laboratory Tests Test 11/22/16 22:03 White Blood Count 11.0 TH/MM3 Red Blood Count 3.55 MIL/MM3 Hemoglobin 9.2 GM/DL Hematocrit 28.8 % Mean Corpuscular Volume 81.0 FL Mean Corpuscular Hemoglobin 26.0 PG Mean Corpuscular Hemoglobin 32.1 % Concent Red Cell Distribution Width 16.3 % Platelet Count 281 TH/MM3 Mean Platelet Volume 7.0 FL Neutrophils (%) (Auto) 76.1 % Lymphocytes (%) (Auto) 16.9 % Monocytes (%) (Auto) 4.8 % Eosinophils (%) (Auto) 1.8 % Basophils (%) (Auto) 0.4 % Neutrophils # (Auto) 8.4 TH/MM3 Lymphocytes # (Auto) 1.9 TH/MM3 Monocytes # (Auto) 0.5 TH/MM3 Eosinophils # (Auto) 0.2 TH/MM3 Basophils # (Auto) 0.0 TH/MM3 CBC Comment DIFF FINAL Differential Comment Prothrombin Time 11.1 SEC Prothromb Time International 1.0 RATIO Ratio Activated Partial 30.7 SEC Thromboplast Time Sodium Level 134 MEQ/L Potassium Level 4.7 MEQ/L Chloride Level 101 MEQ/L Carbon Dioxide Level 25.5 MEQ/L Anion Gap 8 MEQ/L Blood Urea Nitrogen 38 MG/DL Creatinine 1.67 MG/DL Estimat Glomerular Filtration 36 ML/MIN Rate Random Glucose 166 MG/DL Calcium Level 9.4 MG/DL Total Bilirubin 0.3 MG/DL Aspartate Amino Transf 9 U/L (AST/SGOT) Alanine Aminotransferase 16 U/L (ALT/SGPT) Alkaline Phosphatase 89 U/L B-Type Natriuretic Peptide 27 PG/ML Total Protein 8.8 GM/DL Albumin 2.7 GM/DL [facility] Medical Record Reviewed: Yes Supervised Visit with JADON: Yes Diagnosis Primary Impression: Sciatica of left side Referrals: Primary Care Physician 2 days Patient Instructions: General Instructions Additional Instruction: Apply moist heat intermittently to left lower back Follow-up with your primary care provider call office on Thursday Take pain medication as prescribed as needed; be aware that narcotic pain medication may increased risk for fall, delay reaction time, impaired judgment, cause constipation; use only as needed for pain greater than 5/10 in intensity Take steroid taper as prescribed as needed; monitor blood sugars closely Increase fluid hydration Return to the emergency department for any concerns or change in condition Med/Other Pt SpecificInfo: Prescription(s) given Scripts Oxycodone-Acetaminophen (Percocet)5-325 mg Tab1 Tab PO Q6H PRN (PAIN) #10 TAB Ref 0 Prov:Lolis Castle MD 11/23/16 Methylprednisolone Dosepak (Medrol Dosepak)4 Mg Dspk4 Mg PO DIRECTED #1 DSPK Ref 0 Per Pharmacist direction Prov:Lolis Castle MD 11/23/16 Disposition: DISCHARGE HOME Condition: Stable Lolis Castle MD Nov 23, 2016 01:05
[2016-11-23 01:08] VITALS: BP 158/78; PULSE 96; RESP 18; O2SAT 100
== END 2016-11-23 01:33 | disposition home or self-care (01) ==
LOC: NEPC 20:44
DX: M54.32 Sciatica, left side (principal); R60.0 Localized edema
CPT/HCPCS: 73502; 73552; 80053; 83880; 85025; 85610; 85730; 93970; 96374; 96375; 99285; J1885; J2270; J2405

== ENCOUNTER 2017-01-31 14:12 | Observation (INO) | payer MEDICARE ==
[2017-01-31] VITALS (7 sets, daily range): BP systolic 124–134; BP diastolic 61–73; PULSE 68–102; RESP 18; TEMP 98.4–99; O2SAT 98
[~2017-01-31 14:12] MED LIST changes: -AMIT1TAB79 PO; -ASPI325T PO; -FERR1TAB36 PO; -HYDR-3516 PO; -MEDR10TA7 PO; +MEDR4PAK PO; -NYST100084 TOPICAL; +PERC5TAB12 PO; -[UNRECOGNIZED DRUG - CODE]
--- NOTE | 2017-01-31 14:43 | PD ---
HPI Chief Complaint: General Weakness Time Seen by Provider: 14:22 Travel History International Travel<30 days: No Contact w/Intl Traveler<30days: No Traveled to known affect area: No History of Present Illness HPI 81-year-old female presents to the emergency department from home via EMS for evaluation generalized weakness, fever. Patient apparently just returned home from rehabilitation on Thursday, 4 days ago. Her home health nurse came to change the dressings of her chronic wound to her buttocks when they noticed that she was running a temp. It was the home health nurse to call 911. The patient reports feeling generally weak and complains of bilateral arm pain. She denies any headache. No chest pain or shortness of breath. No abdominal pain. No nausea, vomiting, diarrhea. She states that she generally doesn't feel well. Patient's history diabetes, hypertension, arthritis, sciatica. Patient denies any syncopal episodes or falls. PFSH Past Medical History Arthritis: Yes Autoimmune Disease: No Cancer: No Cardiovascular Problems: No High Cholesterol: Yes Diabetes: Yes Diminished Hearing: No Endocrine: Yes Gastrointestinal Disorders: No Genitourinary: No Headaches: Yes Hepatitis: No Hiatal Hernia: No Hypertension: Yes Immune Disorder: No Musculoskeletal: Yes (ARTHRITIS IN L KNEE) Neurologic: No Psychiatric: No Reproductive: No Respiratory: No Immunizations Current: Yes Thyroid Disease: No ?: Not Menopausal: Yes Tubal Ligation: Yes Past Surgical History Abdominal Surgery: No AICD: No Cardiac Surgery: No Ear Surgery: No Endocrine Surgery: No Eye Surgery: No Genitourinary Surgery: No Gynecologic Surgery: Yes (TUBAL LIGATION, Endometrial D&C) Joint Replacement: No Oral Surgery: No Pacemaker: No Thoracic Surgery: No Other Surgery: Yes Family History Family Hypercholesterolemia: Yes Social History Alcohol Use: Yes (BEER WEEKENDS) Tobacco Use: No Substance Use: No Allergies-Medications (Allergen,Severity, Reaction): Coded Allergies: shellfish derived (Unverified Allergy, Severe, SWELLING, DYSPNEA, 01/31/17) Reported Meds & Prescriptions Reported Meds & Active Scripts Active Percocet (Oxycodone-Acetaminophen) 5-325 mg Tab 1 Tab PO Q6H PRN Walker with Front Wheels (Device) 1 Mis Mis 1 Ea .ROUTE DIRECTED Reported Tramadol (Tramadol HCl) 50 Mg Tab 50 Mg PO BID PRN Glimepiride 1 Mg Tab 1 Mg PO BID Take with breakfast or first main meal Fish Oil ([place]-3 Fatty Acids) 1,000 Mg Cap 1,000 Mg PO DAILY Zetia (Ezetimibe) 10 Mg Tab 10 Mg PO DAILY Spironolactone-Hydrochlorothiazide 25-25 Mg Tab 1 Tab PO DAILY Lisinopril 10 Mg Tab 10 Mg PO DAILY Review of Systems Except as stated in HPI: all other systems reviewed are Neg Physical Exam Narrative GENERAL: Well-nourished, well-developed obese female patient, afebrile here. Patient has a 99 rectal temperature.. SKIN: Focused skin assessment warm/dry. Patient has sacral ulcer with no drainage or surrounding erythema. It does appear to be healing well. HEAD: Normocephalic. Atraumatic. EYES: No scleral icterus. No injection or drainage. NECK: Supple, trachea midline. No JVD or lymphadenopathy. CARDIOVASCULAR: Regular rate and rhythm without murmurs, gallops, or rubs. RESPIRATORY: Breath sounds equal bilaterally. No accessory muscle use. Lungs sounds are clear to auscultation. GASTROINTESTINAL: Abdomen soft, non-tender, nondistended. MUSCULOSKELETAL: No cyanosis. Bilateral 1+ lower extremity edema. BACK: Nontender without obvious deformity. No CVA tenderness. Data Data Last Documented VS Vital Signs Date Time Temp Pulse Resp B/P (MAP) Pulse Ox O2 Delivery O2 Flow Rate FiO2 01/31/17 14:55 102 20 98 Room Air 01/31/17 14:55 99.0 133/61 (85) Orders Orders Electrocardiogram (01/31/17 14:32) Complete Blood Count With Diff (01/31/17 14:32) Comprehensive Metabolic Panel (01/31/17 14:32) Magnesium (Mg) (01/31/17 14:32) Ckmb (Isoenzyme) Profile (01/31/17 14:32) Troponin I (01/31/17 14:32) Urinalysis - C+S If Indicated (01/31/17 14:32) Chest, Single Ap (01/31/17 14:32) Ecg Monitoring (01/31/17 14:32) Iv Access Insert/Monitor (01/31/17 14:32) Oximetry (01/31/17 14:32) Sodium Chloride 0.9% Flush (Ns Flush) (01/31/17 14:45) Act Partial Throm Time (Ptt) (01/31/17 14:32) Prothrombin Time / Inr (Pt) (01/31/17 14:32) Cath For Specimen (01/31/17 14:32) Wound Culture And Gram Stain (01/31/17 14:32) Influenzae A/B Antigen (01/31/17 14:34) Blood Culture (01/31/17 14:34) Lactic Acid Sepsis Protocol (01/31/17 14:34) Diltiazem Inj (Cardizem Inj) (01/31/17 15:45) Sodium Chlor 0.9% 1000 Ml Inj (Ns 1000 M (01/31/17 16:15) Vancomycin Inj (Vancomycin Inj) (01/31/17 17:15) Labs Laboratory Tests Test 01/31/17 14:40 01/31/17 15:45 White Blood Count 13.1 TH/MM3 Red Blood Count 4.06 MIL/MM3 Hemoglobin 10.4 GM/DL Hematocrit 32.1 % Mean Corpuscular Volume 79.3 FL Mean Corpuscular Hemoglobin 25.6 PG Mean Corpuscular Hemoglobin Concent 32.3 % Red Cell Distribution Width 19.3 % Platelet Count 211 TH/MM3 Mean Platelet Volume 7.9 FL Neutrophils (%) (Auto) 81.9 % Lymphocytes (%) (Auto) 12.4 % Monocytes (%) (Auto) 4.9 % Eosinophils (%) (Auto) 0.5 % Basophils (%) (Auto) 0.3 % Neutrophils # (Auto) 10.7 TH/MM3 Lymphocytes # (Auto) 1.6 TH/MM3 Monocytes # (Auto) 0.6 TH/MM3 Eosinophils # (Auto) 0.1 TH/MM3 Basophils # (Auto) 0.0 TH/MM3 CBC Comment DIFF FINAL Differential Comment Prothrombin Time 11.3 SEC Prothromb Time International Ratio 1.0 RATIO Activated Partial Thromboplast Time 29.6 SEC Blood Urea Nitrogen 18 MG/DL Creatinine 1.08 MG/DL Random Glucose 162 MG/DL Total Protein 7.7 GM/DL Albumin 2.3 GM/DL Calcium Level 9.5 MG/DL Magnesium Level 1.6 MG/DL Alkaline Phosphatase 88 U/L Aspartate Amino Transf (AST/SGOT) 10 U/L Alanine Aminotransferase (ALT/SGPT) 17 U/L Total Bilirubin 0.6 MG/DL Sodium Level 129 MEQ/L Potassium Level 4.7 MEQ/L Chloride Level 96 MEQ/L Carbon Dioxide Level 23.7 MEQ/L Anion Gap 9 MEQ/L Estimat Glomerular Filtration Rate 59 ML/MIN Lactic Acid Level 2.3 mmol/L Total Creatine Kinase 24 U/L Troponin I LESS THAN 0.02 NG/ML Urine Color YELLOW Urine Turbidity CLEAR Urine pH 5.0 Urine Specific [place] 1.015 Urine Protein TRACE mg/dL Urine Glucose (UA) NEG mg/dL Urine Ketones NEG mg/dL Urine Occult Blood NEG Urine Nitrite NEG Urine Bilirubin NEG Urine Urobilinogen LESS THAN 2.0 MG/DL Urine Leukocyte Esterase NEG Urine WBC 1 /hpf Urine Squamous Epithelial Cells 2 /hpf Urine Hyaline Casts 3 /lpf Urine Granular Casts 1 /lpf Microscopic Urinalysis Comment CULT NOT INDICATED MDM Medical Decision Making Medical Screen Exam Complete: Yes Emergency Medical Condition: Yes Medical Record Reviewed: Yes Differential Diagnosis Electrolyte abnormality versus pneumonia versus UTI versus wound infection versus ACS versus dehydration Narrative Course 81-year-old female presents to the emergency department via EMS for evaluation of fever, generalized weakness. EKG, CBC, CMP, magnesium, CK, troponin, lactic acid, blood cultures 2, UA, chest x-ray, wound culture, PTT, PT/INR are ordered and pending. Chest x-ray is ordered and pending. EKG shows multifocal tachycardia versus atrial fibrillation, heart rate 105. This was read and interpreted by my attending physician, Dr. Singh. Cardizem 10 IV was given, the patient converted back to sinus rhythm, heart rate 80s, for Cardizem was given. CBC shows leukocytosis 13.1, anemia hemoglobin 10.4, hematocrit 32.1. CMP shows hyponatremia 129, creatinine 1.08. Magnesium is 1.6. CK is 24. Troponin is less than 0.02. Lactic acid is 2.3. Coags are unremarkable. UA is negative for acute infection. Chest x-ray shows no acute cardiopulmonary disease. Patient is given normal saline 1 L IV bolus. She started on vancomycin 1 g IV. She'll be admitted for generalized weakness, fever. Dr. Palacio accepted admission. Diagnosis Primary Impression: Generalized weakness Additional Impression: Fever Qualified Codes: R50.9 - Fever, unspecified Admitting Information Admitting Physician Requests: Shasta Lopez Jan 31, 2017 14:43
[2017-01-31] MEDS ORDERED: SODIUM CHLORIDE 0.9% FLUSH 10 ML FLUSH IVF PRN (14:45)
[2017-01-31 15:31] LABS: AUTOMATED NEUTROPHIL # 10.7 TH/MM3 (1.8-7.7); BASOPHIL % 0.3 % (0.0-2.0); EOSINOPHIL # 0.1 TH/MM3 (0-0.4); EOSINOPHIL % 0.5 % (0.0-4.0); HEMATOCRIT 32.1 % (35.0-46.0); HEMO FLAGS DIFF FINAL; LYMPH % 12.4 % (9.0-44.0); LYMPHOCYTE # 1.6 TH/MM3 (1.0-4.8); MEAN CELL VOLUME 79.3 FL (80.0-100.0); MEAN CORPUSCULAR HEMOGLOBIN 25.6 PG (27.0-34.0); MEAN CORPUSCULAR HGB CONC 32.3 % (32.0-36.0); MONO % 4.9 % (0.0-8.0); NEUT % 81.9 % (16.0-70.0); PLATELET COUNT 211 TH/MM3 (150-450); RED BLOOD COUNT 4.06 MIL/MM3 (4.00-5.30); RED CELL DISTRIBUTION WIDTH 19.3 % (11.6-17.2); WHITE BLOOD COUNT 13.1 TH/MM3 (4.0-11.0)
--- NOTE | 2017-01-31 15:34 | RADRPT ---
EXAM DATE/TIME: 01/31/2017 14:46 [facility] COMPARISON: No previous studies available for comparison. INDICATIONS : Generalized weakness and shortness of breath. MEDICAL HISTORY : None. SURGICAL HISTORY : None. ENCOUNTER: Initial ACUITY: 2 days PAIN SCORE: 0/10 LOCATION: chest FINDINGS: A single view of the chest demonstrates the lungs to be symmetrically aerated without evidence of mas s, infiltrate or effusion. The cardiomediastinal contours are unremarkable. Osseous structures are intact. CONCLUSION: 1. No acute cardiopulmonary disease. Rosendo Matthews MD on January 31, 2017 at 15:32 Board Certified Radiologist. This report was verified electronically.
[2017-01-31] MEDS ORDERED: DILTIAZEM HCL 25 MG/5 ML VIAL IV ONE (15:45)
[2017-01-31 15:49] LABS: APTT (PATIENT) 29.6 SEC (24.3-30.1); PROTHROMBIN TIME - PATIENT 11.3 SEC (9.8-11.6)
[2017-01-31 15:54] LABS: ALT (GPT) 17 U/L (10-53)
[2017-01-31 15:56] LABS: ANION GAP 9 MEQ/L (5-15); AST (GOT) 10 U/L (15-37); BICARBONATE 23.7 MEQ/L (21.0-32.0); BLOOD UREA NITROGEN 18 MG/DL (7-18); CHLORIDE 96 MEQ/L (98-107); GLOMERULAR FILTRATION RATE 59 ML/MIN (>89); MAGNESIUM 1.6 MG/DL (1.5-2.5); POTASSIUM 4.7 MEQ/L (3.5-5.1); SODIUM (NA) 129 MEQ/L (136-145)
[2017-01-31 15:58] LABS: ALKALINE PHOSPHATASE 88 U/L (45-117); TOTAL BILIRUBIN ADULT 0.6 MG/DL (0.2-1.0)
[2017-01-31 16:04] LABS: BLOOD, URINE NEG (NEG); COMMENT (UR) CULT NOT INDICATED; CULTURE IF INDICATED CULT NOT INDICATED; GLUCOSE,URINE NEG (NEG); GRANULAR CAST, URINE 1 /lpf; HYALINE CAST, URINE 3 /lpf (RARE); KETONE, URINE NEG (NEG); NITRITE,URINE NEG (NEG); SQUAMOUS EPITHELIAL CELL URINE 2 /hpf (0-5); URINE COLOR YELLOW (YELLW/STRAW)
[2017-01-31 16:07] LABS: CREATINE KINASE 24 U/L (26-192)
[2017-01-31] MEDS ORDERED: SODIUM CHLOR 0.9% 1000 ML INJ 1,000 ML IV ONE (16:15)
[2017-01-31] MEDS ORDERED: ACETAMINOPHEN 325 MG TAB PO PRN ×2 (17:15)
[2017-01-31] MEDS ORDERED: VANCOMYCIN INJ 1,000 MG in SODIUM CHLOR 0.9% 250 ML INJ 250 ML IV ONE (17:15)
[2017-01-31] MEDS ORDERED: SODIUM CHLORIDE 0.9% FLUSH 10 ML FLUSH IV FLUSH PRN (17:15)
[2017-01-31] MEDS ORDERED: NALOXONE HCL 0.4 MG/ML AMP IV PUSH PRN (17:15)
[2017-01-31] MEDS ORDERED: MAGNESIUM HYDROXIDE SUSP 30 ML CUP PO PRN (17:15)
[2017-01-31] MEDS ORDERED: ONDANSETRON HCL 4 MG/2 ML VIAL IVP PRN (17:15)
[2017-01-31 17:18] LABS: LACTIC ACID GHOST NOT REPORTABLE
--- NOTE | 2017-01-31 17:41 | HHI.HP ---
HPI Service [facility] Hospitalists Primary Care Physician Ron Bee D.O. Admission Diagnosis generalized weakness, fever Chief Complaint: generalized weakness and fever Travel History International Travel<30 Days: No Contact w/Intl Traveler <30 Da: No Traveled to Known Affected Are: No History of Present Illness This is a 81 year old female patient with past medical history which includes chronic buttock wound, diabetes mellitus type 2, chronic kidney disease stage IV , hypertension and uterine fibroids. Patient presents to the hospital today with concerns regarding fever and generalized weakness. Patient returned home from rehabilitation at [facility] on Thursday, which was 4 days ago. Per family at bedside patient was, "rn utilization management um," and overall appeared well when she initially returned home. Over the past four days patient has been more fatigued , agitated and weaker. Today her home health nurse came to change the dressings on her chronic buttock wound and noted a fever. Family does not recall exact temperature. The home health nurse then called 911. The patient reports feeling generally unwell and weak. Patient also reports pain bilateral shoulders, arms and buttock wound.She denies headache, chest pain, shortness of breath, abdominal pain, nausea, vomiting, diarrhea. In talking with the family more they report a decline in appetite over the last month. Review of Systems Constitutional: COMPLAINS OF: Fatigue, Fever, DENIES: Chills Eyes: DENIES: Blurred vision, Diplopia, Vision loss Respiratory: DENIES: Cough, Sputum production, Shortness of breath Cardiovascular: DENIES: Chest pain, Palpitations, Dyspnea on Exertion, Lower Extremity Edema Gastrointestinal: DENIES: Abdominal pain, Constipation, Diarrhea Neurologic: DENIES: Headache, Localized weakness, Speech Problems Psychiatric: COMPLAINS OF: Agitation, DENIES: Anxiety, Confusion Past Family Social History Past Medical History chronic buttock wound dm 2. hgba1c 05/20 6.1 ckd stage 4. gfr 29 and cr 1.8 in 05/20 htn uterine fibroids and bleeding Past Surgical History tubal ligation Embolization of uterine fibroid artery Reported Medications Tramadol (Tramadol HCl) 50 Mg Tab 50 Mg PO BID PRN Glimepiride 1 Mg Tab 1 Mg PO BID Take with breakfast or first main meal Fish Oil ([place]-3 Fatty Acids) 1,000 Mg Cap 1,000 Mg PO DAILY Zetia (Ezetimibe) 10 Mg Tab 10 Mg PO DAILY Spironolactone-Hydrochlorothiazide 25-25 Mg Tab 1 Tab PO DAILY Lisinopril 10 Mg Tab 10 Mg PO DAILY Allergies: Coded Allergies: shellfish derived (Unverified Allergy, Severe, SWELLING, DYSPNEA, 01/31/17) Active Ordered Medications Current Medications Medications (Trade) Dose Ordered Sig/Daniella Route Start Time Stop Time Status Last Admin Vancomycin HCl 1000 mg/Sodium Chloride 250 ml @ 250 mls/hr ONCE ONCE IV 01/31/17 17:15 01/31/17 18:14 (NS Flush) 2 ml UNSCH PRN IV FLUSH 01/31/17 17:15 (NS Flush) 2 ml BID IV FLUSH 01/31/17 21:00 (Zofran Inj) 4 mg Q6H PRN IVP 01/31/17 17:15 (Narcan Inj) 0.4 mg UNSCH PRN IV PUSH 01/31/17 17:15 (Milk Of Magnesia Liq) 30 ml Q12H PRN PO 01/31/17 17:15 (Tylenol) 650 mg Q6H PRN PO 01/31/17 17:15 Potassium Chloride/Sodium Chloride 1,000 ml @ 85 mls/hr [id number] IV 01/31/17 17:30 02/01/17 17:01 (NovoLOG SUPPLEMENTAL SCALE) 1 ACHS SLIDING SCALE SQ 01/31/17 21:00 UNV (Zetia) 10 mg DAILY PO 01/31/17 17:30 UNV (Prinivil) 10 mg DAILY PO 02/01/17 09:00 UNV (Ultram) 50 mg Q8H PRN PO 01/31/17 17:30 UNV Family History nc Social History denies etoh/tob Physical Exam Vital Signs Vital Signs Date Time Temp Pulse Resp B/P (MAP) Pulse Ox O2 Delivery O2 Flow Rate FiO2 01/31/17 14:55 102 20 98 Room Air 01/31/17 14:55 99.0 102 18 133/61 (85) 98 Room Air 01/31/17 14:55 99.0 102 18 133/61 (85) 98 Room Air 01/31/17 14:30 99.0 102 18 133/61 (85) 98 Physical Exam GENERAL: This is an obese elderly female patient, in no apparent distress. SKIN: Cool and dry. buttock wound stage two no drainage or odor noted EYES:Extraocular motions intact. No scleral icterus. No injection or drainage. CARDIOVASCULAR: Regular rate and rhythm without murmurs, gallops, or rubs. RESPIRATORY: Clear to auscultation. Breath sounds equal bilaterally. No wheezes , rales, or rhonchi. GASTROINTESTINAL: Abdomen soft, non-tender, nondistended. No hepato-splenomegaly , or palpable masses. No guarding. MUSCULOSKELETAL: Extremities without clubbing, cyanosis, or edema. No joint tenderness, effusion, or edema noted. No calf tenderness. Negative Homans sign bilaterally. NEUROLOGICAL: Awake and alert. No focal deficits. Motor and sensory grossly within normal limits. Five out of 5 muscle strength in all muscle groups. Normal speech. Laboratory Laboratory Tests Test 01/31/17 14:40 01/31/17 15:45 White Blood Count 13.1 Red Blood Count 4.06 Hemoglobin 10.4 Hematocrit 32.1 Mean Corpuscular Volume 79.3 Mean Corpuscular Hemoglobin 25.6 Mean Corpuscular Hemoglobin Concent 32.3 Red Cell Distribution Width 19.3 Platelet Count 211 Mean Platelet Volume 7.9 Neutrophils (%) (Auto) 81.9 Lymphocytes (%) (Auto) 12.4 Monocytes (%) (Auto) 4.9 Eosinophils (%) (Auto) 0.5 Basophils (%) (Auto) 0.3 Neutrophils # (Auto) 10.7 Lymphocytes # (Auto) 1.6 Monocytes # (Auto) 0.6 Eosinophils # (Auto) 0.1 Basophils # (Auto) 0.0 CBC Comment DIFF FINAL Differential Comment Prothrombin Time 11.3 Prothromb Time International Ratio 1.0 Activated Partial Thromboplast Time 29.6 Blood Urea Nitrogen 18 Creatinine 1.08 Random Glucose 162 Total Protein 7.7 Albumin 2.3 Calcium Level 9.5 Magnesium Level 1.6 Alkaline Phosphatase 88 Aspartate Amino Transf (AST/SGOT) 10 Alanine Aminotransferase (ALT/SGPT) 17 Total Bilirubin 0.6 Sodium Level 129 Potassium Level 4.7 Chloride Level 96 Carbon Dioxide Level 23.7 Anion Gap 9 Estimat Glomerular Filtration Rate 59 Lactic Acid Level 2.3 Total Creatine Kinase 24 Troponin I LESS THAN 0.02 Urine Color YELLOW Urine Turbidity CLEAR Urine pH 5.0 Urine Specific [place] 1.015 Urine Protein TRACE Urine Glucose (UA) NEG Urine Ketones NEG Urine Occult Blood NEG Urine Nitrite NEG Urine Bilirubin NEG Urine Urobilinogen LESS THAN 2.0 Urine Leukocyte Esterase NEG Urine WBC 1 Urine Squamous Epithelial Cells 2 Urine Hyaline Casts 3 Urine Granular Casts 1 Microscopic Urinalysis Comment CULT NOT INDICATED Date/Time Source Procedure Growth Status 01/31/17 14:40 Blood Peripheral Aerobic Blood Culture Pending Received 01/31/17 14:40 Blood Peripheral Anaerobic Blood Culture Pending Received 01/31/17 15:35 Nasal Aspirate Influenza Types A,B Antigen (RANJIT) - Final NEGATIVE FOR FLU A AND B ANTIGEN.... Complete 01/31/17 14:30 Wound Buttock Gram Stain Pending Received 01/31/17 14:30 Wound Buttock Wound Culture Pending Received Result Diagram: 01/31/17 1440 01/31/17 1440 Caprini VTE Risk Assessment Caprini VTE Risk Assessment: Mod/High Risk (score >= 2) Caprini Risk Assessment Model Point Value = 1 Point Value = 2 Point Value = 3 Point Value = 5 Age 41-60 Minor surgery BMI > 25 kg/m2 Swollen legs Varicose veins or History of unexplained or recurrent spontaneous Oral contraceptives or hormone replacement Sepsis (< 1 month) Serious lung disease, including pneumonia (< 1 month) Abnormal pulmonary function Acute myocardial infarction Congestive heart failure (< 1 month) History of inflammatory bowel disease Medical patient at bed rest Age 61-74 Arthroscopic surgery Major open surgery (> 45 min) Laparoscopic surgery (> 45 min) Malignancy Confined to bed (> 72 hours) Immobilizing plaster cast Central venous access Age >= 75 History of VTE Family history of VTE Factor V Leiden Prothrombin [id number] Lupus anticoagulant Anticardiolipin antibodies Elevated serum homocysteine Heparin-induced thrombocytopenia Other congenital or acquired thrombophilia Stroke (< 1 month) Elective arthroplasty Hip, pelvis, or leg fracture Acute spinal cord injury (< 1 month) Prophylaxis Regimen Total Risk Factor Score Risk Level Prophylaxis Regimen 0-1 Low Early ambulation 2 Moderate Order ONE of the following: *Sequential Compression Device (SCD) *Heparin 5000 units SQ BID 3-4 Higher Order ONE of the following medications: *Heparin 5000 units SQ TID *Enoxaparin/Lovenox 40 mg SQ daily (WT < 150 kg, CrCl > 30 mL/min) *Enoxaparin/Lovenox 30 mg SQ daily (WT < 150 kg, CrCl > 10-29 mL/min) *Enoxaparin/Lovenox 30 mg SQ BID (WT < 150 kg, CrCl > 30 mL/min) AND/OR *Sequential Compression Device (SCD) 5 or more Highest Order ONE of the following medications: *Heparin 5000 units SQ TID (Preferred with Epidurals) *Enoxaparin/Lovenox 40 mg SQ daily (WT < 150 kg, CrCl > 30 mL/min) *Enoxaparin/Lovenox 30 mg SQ daily (WT < 150 kg, CrCl > 10-29 mL/min) *Enoxaparin/Lovenox 30 mg SQ BID (WT < 150 kg, CrCl > 30 mL/min) AND *Sequential Compression Device (SCD) Assessment and Plan Problem List: (1) Generalized weakness ICD Codes: R53.1 - Weakness Status: Acute Plan: Generalized weakness Fever WBC 13.1 Given Vancomycin x1 in ER will not continue at this time await culture results PT eval diabetes mellitus type 2 hold oral diabetic medication diabetic diet Accu checks ACHS with SSI coverage Hyponatremia hold HCTZ-spironolactone IV fluids recheck in AM Decreased appetite start Remeron Chronic buttock wound consult wound care chronic kidney disease avoid nephrotoxic agents monitor hypertension- currently hypotensive continue home lisinopril monitor trend Hyperlipidemia continue home Zetia DVT prophylaxis with SCDs (2) DM2 (diabetes mellitus, type 2) ICD Codes: E11.9 - Type 2 diabetes mellitus without complications Status: Chronic (3) HTN (hypertension) ICD Codes: I10 - Essential (primary) hypertension Status: Chronic (4) CKD (chronic kidney disease), stage IV ICD Codes: N18.4 - Chronic kidney disease, stage 4 (severe) Assessment and Plan Patient examined. Assessment and plan formulated with Marbella Harris PA-C. I agree with the above. Sandy Vyas Jan 31, 2017 17:41 Uday Palacio DO Feb 03, 2017 10:10
[2017-01-31] MEDS: NS + KCL 20 MEQ INJ 1,000 ML IV SCH (18:13)
[2017-01-31] MEDS: traMADol HCL 50 MG TAB PO PRN (20:50)
[2017-01-31] MEDS: MIRTAZAPINE 15 MG TAB PO SCH (20:50)
[2017-01-31] MEDS: INSULIN ASPART SUPPLEMENTAL SCALE SQ SCH (20:50)
[2017-01-31] MEDS: SODIUM CHLORIDE 0.9% FLUSH 10 ML FLUSH IV FLUSH SCH (21:00)
[2017-02-01] VITALS (7 sets, daily range): BP systolic 114–129; BP diastolic 58–68; PULSE 77–100; RESP 16–20; TEMP 98.1–98.8; O2SAT 95–100
--- NOTE | 2017-02-01 01:20 | EKG ---
Date Performed: 01/31/2017 Time Performed: 15:29:20 PTAGE: 81 years EKG: MULTIFOCAL ATRIAL TACHYCARDIA POSSIBLE LEFT VENTRICULAR HYPERTROPHY NONSPECIFIC T-WAVE ABNO RMALITY ABNORMAL ECG PREVIOUS TRACING : 06/04/2016 07.06 Compared to previous tracing, multifocal atrial tachycardia has replaced Sinus rhythm DOCTOR: Andrei Hooker Interpretating Date/Time 02/01/2017 01:19:50
[2017-02-01] MEDS: NS + KCL 20 MEQ INJ 1,000 ML IV SCH (05:16)
[2017-02-01] MEDS: traMADol HCL 50 MG TAB PO PRN ×2 (06:11→22:20)
[2017-02-01] MEDS: INSULIN ASPART SUPPLEMENTAL SCALE SQ SCH ×4 (08:00→22:08)
[2017-02-01] MEDS: SODIUM CHLORIDE 0.9% FLUSH 10 ML FLUSH IV FLUSH SCH ×2 (09:00→22:08)
[2017-02-01] MEDS: EZETIMIBE 10 MG TAB PO SCH (09:59)
[2017-02-01] MEDS: LISINOPRIL 10 MG TAB PO SCH (10:00)
[2017-02-01 10:24] LABS: AUTOMATED NEUTROPHIL # 8.4 TH/MM3 (1.8-7.7); BASOPHIL # 0.1 TH/MM3 (0-0.2); BASOPHIL % 0.5 % (0.0-2.0); EOSINOPHIL # 0.1 TH/MM3 (0-0.4); EOSINOPHIL % 1.1 % (0.0-4.0); HEMATOCRIT 31.1 % (35.0-46.0); HEMO FLAGS DIFF FINAL; LYMPH % 21.1 % (9.0-44.0); LYMPHOCYTE # 2.5 TH/MM3 (1.0-4.8); MEAN CELL VOLUME 79.8 FL (80.0-100.0); MEAN CORPUSCULAR HGB CONC 32.5 % (32.0-36.0); MONO % 5.9 % (0.0-8.0); NEUT % 71.4 % (16.0-70.0); PLATELET COUNT 161 TH/MM3 (150-450); WHITE BLOOD COUNT 11.7 TH/MM3 (4.0-11.0)
[2017-02-01 10:40] LABS: BICARBONATE 27.2 MEQ/L (21.0-32.0); MAGNESIUM 1.8 MG/DL (1.5-2.5); POTASSIUM 4.6 MEQ/L (3.5-5.1)
--- NOTE | 2017-02-01 15:53 | HHI.PR ---
Subjective Remarks Patient in bed seems to be more alert today talking more Multiple family members at bedside Discussed possible rehab vs home with HHC- patient would like to go home with C and home PT. Objective Vitals Vital Signs Date Time Temp Pulse Resp B/P (MAP) Pulse Ox O2 Delivery O2 Flow Rate FiO2 02/01/17 11:03 98.6 92 16 126/60 (82) 99 02/01/17 08:18 77 02/01/17 07:56 98.6 89 16 120/59 (79) 99 02/01/17 01:00 98.8 78 18 121/68 (85) 97 01/31/17 23:59 88 01/31/17 22:11 98.4 68 18 128/67 (87) 98 01/31/17 18:48 92 18 131/73 (92) 98 01/31/17 18:15 90 18 124/61 (82) 98 Room Air 01/31/17 16:30 92 18 134/67 (89) 98 Room Air Result Diagram: 02/01/17 1005 02/01/17 1005 Other Results Laboratory Tests Test 01/31/17 14:40 01/31/17 15:45 01/31/17 18:15 02/01/17 10:05 White Blood Count 13.1 TH/MM3 11.7 TH/MM3 Red Blood Count 4.06 MIL/MM3 3.90 MIL/MM3 Hemoglobin 10.4 GM/DL 10.1 GM/DL Hematocrit 32.1 % 31.1 % Mean Corpuscular Volume 79.3 FL 79.8 FL Mean Corpuscular Hemoglobin 25.6 PG 26.0 PG Mean Corpuscular Hemoglobin Concent 32.3 % 32.5 % Red Cell Distribution Width 19.3 % 19.0 % Platelet Count 211 TH/MM3 161 TH/MM3 Mean Platelet Volume 7.9 FL 7.7 FL Neutrophils (%) (Auto) 81.9 % 71.4 % Lymphocytes (%) (Auto) 12.4 % 21.1 % Monocytes (%) (Auto) 4.9 % 5.9 % Eosinophils (%) (Auto) 0.5 % 1.1 % Basophils (%) (Auto) 0.3 % 0.5 % Neutrophils # (Auto) 10.7 TH/MM3 8.4 TH/MM3 Lymphocytes # (Auto) 1.6 TH/MM3 2.5 TH/MM3 Monocytes # (Auto) 0.6 TH/MM3 0.7 TH/MM3 Eosinophils # (Auto) 0.1 TH/MM3 0.1 TH/MM3 Basophils # (Auto) 0.0 TH/MM3 0.1 TH/MM3 CBC Comment DIFF FINAL DIFF FINAL Differential Comment Prothrombin Time 11.3 SEC Prothromb Time International Ratio 1.0 RATIO Activated Partial Thromboplast Time 29.6 SEC Blood Urea Nitrogen 18 MG/DL 14 MG/DL Creatinine 1.08 MG/DL 0.84 MG/DL Random Glucose 162 MG/DL 132 MG/DL Total Protein 7.7 GM/DL Albumin 2.3 GM/DL Calcium Level 9.5 MG/DL 8.9 MG/DL Magnesium Level 1.6 MG/DL 1.8 MG/DL Alkaline Phosphatase 88 U/L Aspartate Amino Transf (AST/SGOT) 10 U/L Alanine Aminotransferase (ALT/SGPT) 17 U/L Total Bilirubin 0.6 MG/DL Sodium Level 129 MEQ/L 136 MEQ/L Potassium Level 4.7 MEQ/L 4.6 MEQ/L Chloride Level 96 MEQ/L 102 MEQ/L Carbon Dioxide Level 23.7 MEQ/L 27.2 MEQ/L Anion Gap 9 MEQ/L 7 MEQ/L Estimat Glomerular Filtration Rate 59 ML/MIN 79 ML/MIN Lactic Acid Level 2.3 mmol/L 1.4 mmol/L 1.2 mmol/L Total Creatine Kinase 24 U/L Troponin I LESS THAN 0.02 NG/ML Urine Color YELLOW Urine Turbidity CLEAR Urine pH 5.0 Urine Specific [place] 1.015 Urine Protein TRACE mg/dL Urine Glucose (UA) NEG mg/dL Urine Ketones NEG mg/dL Urine Occult Blood NEG Urine Nitrite NEG Urine Bilirubin NEG Urine Urobilinogen LESS THAN 2.0 MG/DL Urine Leukocyte Esterase NEG Urine WBC 1 /hpf Urine Squamous Epithelial Cells 2 /hpf Urine Hyaline Casts 3 /lpf Urine Granular Casts 1 /lpf Microscopic Urinalysis Comment CULT NOT INDICATED Imaging Last Impressions Chest X-Ray 01/31/17 1432 Signed Impressions: Service Date/Time: Tuesday, January 31, 2017 14:46 - CONCLUSION: 1. No acute cardiopulmonary disease. Rosendo Matthews MD Objective Remarks GENERAL: This is an obese elderly female patient, in no apparent distress. SKIN: Cool and dry. buttock wound stage two no drainage or odor noted CARDIOVASCULAR: Regular rate and rhythm RESPIRATORY: Clear to auscultation. Breath sounds equal bilaterally. No wheezes , rales, or rhonchi. GASTROINTESTINAL: Abdomen soft, non-tender, nondistended. No hepato-splenomegaly , or palpable masses. No guarding. MUSCULOSKELETAL: Extremities without clubbing, cyanosis, or edema. No joint tenderness, effusion, or edema noted. No calf tenderness. Negative Homans sign bilaterally. NEUROLOGICAL: Awake and alert. No focal deficits. Motor and sensory grossly within normal limits. 4 out of 5 muscle strength in all muscle groups. Normal speech. A/P Problem List: (1) Generalized weakness ICD Codes: R53.1 - Weakness Status: Acute Plan: Generalized weakness- likely related to dehydration Fever WBC 13.1 Given Vancomycin x1 in ER will not continue at this time await culture results PT eval recommend rehab vs home with home PT Patient would like to go home with home HHC and PT diabetes mellitus type 2- labile hold oral diabetic medication diabetic diet Accu checks ACHS with SSI coverage Hyponatremia- 129 on admission, 136 (02/01) continue to hold HCTZ-spironolactone IV fluids- DC 'd (02/01) Decreased appetite start Remeron (01/31) Chronic buttock wound consult wound care chronic kidney disease avoid nephrotoxic agents monitor hypertension- stable continue home lisinopril monitor trend Hyperlipidemia continue home Zetia Plan to DC tomorrow with HHC and PT DVT prophylaxis with SCDs (2) DM2 (diabetes mellitus, type 2) ICD Codes: E11.9 - Type 2 diabetes mellitus without complications Status: Chronic (3) HTN (hypertension) ICD Codes: I10 - Essential (primary) hypertension Status: Chronic (4) CKD (chronic kidney disease), stage IV ICD Codes: N18.4 - Chronic kidney disease, stage 4 (severe) Assessment and Plan Patient examined. Assessment and plan formulated with Sandy JIMENEZ I agree with the above. Sandy Vyas Feb 01, 2017 15:53 Uday Palacio DO Feb 03, 2017 10:11
--- NOTE | 2017-02-01 16:55 | HHI.FF ---
Face to Face Verification Diagnosis: (1) Generalized weakness (2) CKD (chronic kidney disease), stage IV (3) DM2 (diabetes mellitus, type 2) Physical Therapy Order: Evaluate and Treat, Improve ambulation, Strength and gait training Occupational Therapy Order: Evaluate and Treat, Fine motor coordination Home Health Nursing Order: Medical education Signs/symptoms of disease process Wound care and dressing changes Nursing assessment with vital signs Instructions: Please continue previous HHC and dressing changes for buttock wound Home Health Aide Order: To Assist In: Bathing and personal care Hub Bander Order: To Evaluate: Living conditions/environment, Support services Order: To Provide: Long range planning, Community services I have seen patient Caroline Lin on 02/01/17. My clinical findings support the need for the requested home health care services because: Limited ability to care for self high fall risk Limited ability to care for self High risk of falls I certify that my clinical findings support that this patient is homebound because: Unsteady gait Unsteady gait/balance Sandy Vyas Feb 01, 2017 16:55
[2017-02-01] MEDS: MIRTAZAPINE 15 MG TAB PO SCH (22:16)
[2017-02-02 03:12] VITALS: BP 114/58; PULSE 90; RESP 18; TEMP 98.1; O2SAT 96
[2017-02-02 07:20] VITALS: BP 133/69; PULSE 93; RESP 16; TEMP 98; O2SAT 99
[2017-02-02] MEDS: INSULIN ASPART SUPPLEMENTAL SCALE SQ SCH ×4 (08:00→20:27)
--- NOTE | 2017-02-02 08:44 | HHI.PR ---
Subjective Remarks Patient awake and alert report she feels well offers no specific complaints Objective Vitals Vital Signs Date Time Temp Pulse Resp B/P (MAP) Pulse Ox O2 Delivery O2 Flow Rate FiO2 02/02/17 07:20 98.0 93 16 133/69 (90) 99 02/02/17 03:12 98.1 90 18 114/58 (76) 96 02/01/17 23:38 98.2 90 18 121/58 (79) 97 02/01/17 20:09 98.1 99 18 129/64 (85) 100 02/01/17 16:04 98.2 100 20 114/64 (81) 95 02/01/17 11:03 98.6 92 16 126/60 (82) 99 02/02/17 02/02/17 02/03/17 15:00 23:00 07:00 # Voids 1 Result Diagram: 02/01/17 1005 02/01/17 1005 Other Results Laboratory Tests Test 01/31/17 14:40 01/31/17 15:45 01/31/17 18:15 02/01/17 10:05 White Blood Count 13.1 TH/MM3 11.7 TH/MM3 Red Blood Count 4.06 MIL/MM3 3.90 MIL/MM3 Hemoglobin 10.4 GM/DL 10.1 GM/DL Hematocrit 32.1 % 31.1 % Mean Corpuscular Volume 79.3 FL 79.8 FL Mean Corpuscular Hemoglobin 25.6 PG 26.0 PG Mean Corpuscular Hemoglobin Concent 32.3 % 32.5 % Red Cell Distribution Width 19.3 % 19.0 % Platelet Count 211 TH/MM3 161 TH/MM3 Mean Platelet Volume 7.9 FL 7.7 FL Neutrophils (%) (Auto) 81.9 % 71.4 % Lymphocytes (%) (Auto) 12.4 % 21.1 % Monocytes (%) (Auto) 4.9 % 5.9 % Eosinophils (%) (Auto) 0.5 % 1.1 % Basophils (%) (Auto) 0.3 % 0.5 % Neutrophils # (Auto) 10.7 TH/MM3 8.4 TH/MM3 Lymphocytes # (Auto) 1.6 TH/MM3 2.5 TH/MM3 Monocytes # (Auto) 0.6 TH/MM3 0.7 TH/MM3 Eosinophils # (Auto) 0.1 TH/MM3 0.1 TH/MM3 Basophils # (Auto) 0.0 TH/MM3 0.1 TH/MM3 CBC Comment DIFF FINAL DIFF FINAL Differential Comment Prothrombin Time 11.3 SEC Prothromb Time International Ratio 1.0 RATIO Activated Partial Thromboplast Time 29.6 SEC Blood Urea Nitrogen 18 MG/DL 14 MG/DL Creatinine 1.08 MG/DL 0.84 MG/DL Random Glucose 162 MG/DL 132 MG/DL Total Protein 7.7 GM/DL Albumin 2.3 GM/DL Calcium Level 9.5 MG/DL 8.9 MG/DL Magnesium Level 1.6 MG/DL 1.8 MG/DL Alkaline Phosphatase 88 U/L Aspartate Amino Transf (AST/SGOT) 10 U/L Alanine Aminotransferase (ALT/SGPT) 17 U/L Total Bilirubin 0.6 MG/DL Sodium Level 129 MEQ/L 136 MEQ/L Potassium Level 4.7 MEQ/L 4.6 MEQ/L Chloride Level 96 MEQ/L 102 MEQ/L Carbon Dioxide Level 23.7 MEQ/L 27.2 MEQ/L Anion Gap 9 MEQ/L 7 MEQ/L Estimat Glomerular Filtration Rate 59 ML/MIN 79 ML/MIN Lactic Acid Level 2.3 mmol/L 1.4 mmol/L 1.2 mmol/L Total Creatine Kinase 24 U/L Troponin I LESS THAN 0.02 NG/ML Urine Color YELLOW Urine Turbidity CLEAR Urine pH 5.0 Urine Specific [place] 1.015 Urine Protein TRACE mg/dL Urine Glucose (UA) NEG mg/dL Urine Ketones NEG mg/dL Urine Occult Blood NEG Urine Nitrite NEG Urine Bilirubin NEG Urine Urobilinogen LESS THAN 2.0 MG/DL Urine Leukocyte Esterase NEG Urine WBC 1 /hpf Urine Squamous Epithelial Cells 2 /hpf Urine Hyaline Casts 3 /lpf Urine Granular Casts 1 /lpf Microscopic Urinalysis Comment CULT NOT INDICATED Imaging Last Impressions Chest X-Ray 01/31/17 1432 Signed Impressions: Service Date/Time: Tuesday, January 31, 2017 14:46 - CONCLUSION: 1. No acute cardiopulmonary disease. Rosendo Matthews MD Objective Remarks GENERAL: This is an obese elderly female patient, in no apparent distress. SKIN: Cool and dry. buttock wound stage two no drainage or odor noted CARDIOVASCULAR: Regular rate and rhythm RESPIRATORY: Clear to auscultation. Breath sounds equal bilaterally. No wheezes , rales, or rhonchi. GASTROINTESTINAL: Abdomen soft, non-tender, nondistended. No hepato-splenomegaly , or palpable masses. No guarding. MUSCULOSKELETAL: Extremities without clubbing, cyanosis, or edema. No joint tenderness, effusion, or edema noted. No calf tenderness. Negative Homans sign bilaterally. NEUROLOGICAL: Awake and alert. No focal deficits. Motor and sensory grossly within normal limits. 4 out of 5 muscle strength in all muscle groups. Normal speech. A/P Problem List: (1) Generalized weakness ICD Codes: R53.1 - Weakness Status: Acute Plan: Generalized weakness- likely related to dehydration Fever WBC 13.1 on admission --> 11.7 (02/02) after IV fluids Given Vancomycin x1 in ER will not continue at this time await culture results PT eval recommend rehab vs home with home PT Patient would like to go home with home HHC and PT diabetes mellitus type 2- labile hold oral diabetic medication diabetic diet Accu checks ACHS with SSI coverage Hyponatremia- 129 on admission, 136 (02/01) continue to hold HCTZ-spironolactone IV fluids- DC 'd (02/01) Decreased appetite start Remeron (01/31) Chronic buttock wound consult wound care wound examined appears clean, there is no drainage, erythema or mal odor present wound cultured in ER grew MRSA and Group D Enterococcus- possible colonization as wound clinically does not appear infected Mupirocin topical BID x 10 days Family very concerned regarding wound culture consult ID Plan to DC home with HHC once cleared by ID Blood culture 05/07 bottles reports Staph Sp Coagulase Negative reviewed by myself and Dr. Soto. Clinically patient appears well, likely contamination. plan to DC home with HHC once cleared by ID chronic kidney disease avoid nephrotoxic agents monitor hypertension- stable continue home lisinopril monitor trend Hyperlipidemia continue home Zetia DVT prophylaxis with SCDs Discussed the possibility of SNF for short term rehab/strengthen. Patient refused Plan to DC home with HHC once patient cleared by ID (2) DM2 (diabetes mellitus, type 2) ICD Codes: E11.9 - Type 2 diabetes mellitus without complications Status: Chronic (3) HTN (hypertension) ICD Codes: I10 - Essential (primary) hypertension Status: Chronic (4) CKD (chronic kidney disease), stage IV ICD Codes: N18.4 - Chronic kidney disease, stage 4 (severe) Assessment and Plan Patient examined. Assessment and plan formulated with Sandy Vyas PA-C. I agree with the above. dehydration resolved pt alert and oriented and refused snf..wants hhc/pt with continued care of her wound. topical abx and care ordered. the wound was not draining/no foul odor or cellulitis. observe closely Sandy Vyas Feb 02, 2017 08:44 Jacky Soto MD Feb 02, 2017 15:51
[2017-02-02] MEDS: EZETIMIBE 10 MG TAB PO SCH (10:57)
[2017-02-02] MEDS: LISINOPRIL 10 MG TAB PO SCH (10:57)
[2017-02-02] MEDS: SODIUM CHLORIDE 0.9% FLUSH 10 ML FLUSH IV FLUSH SCH ×2 (10:58→20:27)
[2017-02-02 11:16] VITALS: BP 138/69; PULSE 91; RESP 17; TEMP 97.5; O2SAT 98
[2017-02-02] MEDS: traMADol HCL 50 MG TAB PO PRN (11:50)
[2017-02-02] MEDS ORDERED: MUPI2OIN TOPICAL (14:54)
[2017-02-02] MEDS ORDERED: MIRTA15 PO (14:54)
[2017-02-02 19:42] VITALS: BP 114/56; PULSE 92; RESP 18; TEMP 98; O2SAT 99
[2017-02-02] MEDS: MIRTAZAPINE 15 MG TAB PO SCH (20:28)
[2017-02-02] MEDS: MUPIROCIN 2% OINT 22 GM TUBE TOPICAL SCH (21:00)
[2017-02-03 00:05] VITALS: BP 116/65; PULSE 90; RESP 18; TEMP 98.1; O2SAT 99
[2017-02-03 03:40] VITALS: BP 114/67; PULSE 89; RESP 18; TEMP 98; O2SAT 98
[2017-02-03 07:27] VITALS: BP 138/62; PULSE 95; RESP 18; TEMP 98.6; O2SAT 99
[2017-02-03] MEDS: INSULIN ASPART SUPPLEMENTAL SCALE SQ SCH (08:00)
[2017-02-03] MEDS: SODIUM CHLORIDE 0.9% FLUSH 10 ML FLUSH IV FLUSH SCH (09:00)
[2017-02-03] MEDS: MUPIROCIN 2% OINT 22 GM TUBE TOPICAL SCH (09:00)
--- NOTE | 2017-02-03 09:18 | HHI.PR ---
Subjective Remarks Patient awake and alert concerned regarding MRSA in the buttock wound offers no other complaints at this time reports feeling well overall Objective Vitals Vital Signs Date Time Temp Pulse Resp B/P (MAP) Pulse Ox O2 Delivery O2 Flow Rate FiO2 02/03/17 07:27 98.6 95 18 138/62 (87) 99 02/03/17 03:40 98.0 89 18 114/67 (83) 98 02/03/17 00:05 98.1 90 18 116/65 (82) 99 02/02/17 19:42 98.0 92 18 114/56 (75) 99 02/02/17 16:56 16 02/02/17 12:50 18 02/02/17 11:16 97.5 91 17 138/69 (92) 98 Result Diagram: 02/01/17 1005 02/01/17 1005 Other Results Laboratory Tests Test 01/31/17 14:40 01/31/17 15:45 01/31/17 18:15 02/01/17 10:05 White Blood Count 13.1 TH/MM3 11.7 TH/MM3 Red Blood Count 4.06 MIL/MM3 3.90 MIL/MM3 Hemoglobin 10.4 GM/DL 10.1 GM/DL Hematocrit 32.1 % 31.1 % Mean Corpuscular Volume 79.3 FL 79.8 FL Mean Corpuscular Hemoglobin 25.6 PG 26.0 PG Mean Corpuscular Hemoglobin Concent 32.3 % 32.5 % Red Cell Distribution Width 19.3 % 19.0 % Platelet Count 211 TH/MM3 161 TH/MM3 Mean Platelet Volume 7.9 FL 7.7 FL Neutrophils (%) (Auto) 81.9 % 71.4 % Lymphocytes (%) (Auto) 12.4 % 21.1 % Monocytes (%) (Auto) 4.9 % 5.9 % Eosinophils (%) (Auto) 0.5 % 1.1 % Basophils (%) (Auto) 0.3 % 0.5 % Neutrophils # (Auto) 10.7 TH/MM3 8.4 TH/MM3 Lymphocytes # (Auto) 1.6 TH/MM3 2.5 TH/MM3 Monocytes # (Auto) 0.6 TH/MM3 0.7 TH/MM3 Eosinophils # (Auto) 0.1 TH/MM3 0.1 TH/MM3 Basophils # (Auto) 0.0 TH/MM3 0.1 TH/MM3 CBC Comment DIFF FINAL DIFF FINAL Differential Comment Prothrombin Time 11.3 SEC Prothromb Time International Ratio 1.0 RATIO Activated Partial Thromboplast Time 29.6 SEC Blood Urea Nitrogen 18 MG/DL 14 MG/DL Creatinine 1.08 MG/DL 0.84 MG/DL Random Glucose 162 MG/DL 132 MG/DL Total Protein 7.7 GM/DL Albumin 2.3 GM/DL Calcium Level 9.5 MG/DL 8.9 MG/DL Magnesium Level 1.6 MG/DL 1.8 MG/DL Alkaline Phosphatase 88 U/L Aspartate Amino Transf (AST/SGOT) 10 U/L Alanine Aminotransferase (ALT/SGPT) 17 U/L Total Bilirubin 0.6 MG/DL Sodium Level 129 MEQ/L 136 MEQ/L Potassium Level 4.7 MEQ/L 4.6 MEQ/L Chloride Level 96 MEQ/L 102 MEQ/L Carbon Dioxide Level 23.7 MEQ/L 27.2 MEQ/L Anion Gap 9 MEQ/L 7 MEQ/L Estimat Glomerular Filtration Rate 59 ML/MIN 79 ML/MIN Lactic Acid Level 2.3 mmol/L 1.4 mmol/L 1.2 mmol/L Total Creatine Kinase 24 U/L Troponin I LESS THAN 0.02 NG/ML Urine Color YELLOW Urine Turbidity CLEAR Urine pH 5.[address] Urine Protein TRACE mg/dL Urine Glucose (UA) NEG mg/dL Urine Ketones NEG mg/dL Urine Occult Blood NEG Urine Nitrite NEG Urine Bilirubin NEG Urine Urobilinogen LESS THAN 2.0 MG/DL Urine Leukocyte Esterase NEG Urine WBC 1 /hpf Urine Squamous Epithelial Cells 2 /hpf Urine Hyaline Casts 3 /lpf Urine Granular Casts 1 /lpf Microscopic Urinalysis Comment CULT NOT INDICATED Imaging Last Impressions Chest X-Ray 01/31/17 1432 Signed Impressions: Service Date/Time: Tuesday, January 31, 2017 14:46 - CONCLUSION: 1. No acute cardiopulmonary disease. Rosendo Matthews MD Objective Remarks GENERAL: This is an obese elderly female patient, in no apparent distress. SKIN: Cool and dry. buttock wound stage two no drainage or odor noted CARDIOVASCULAR: Regular rate and rhythm RESPIRATORY: Clear to auscultation. Breath sounds equal bilaterally. No wheezes , rales, or rhonchi. GASTROINTESTINAL: Abdomen soft, non-tender, nondistended. No hepato-splenomegaly , or palpable masses. No guarding. MUSCULOSKELETAL: Extremities without clubbing, cyanosis, or edema. No joint tenderness, effusion, or edema noted. No calf tenderness. Negative Homans sign bilaterally. NEUROLOGICAL: Awake and alert. No focal deficits. Motor and sensory grossly within normal limits. 4 out of 5 muscle strength in all muscle groups. Normal speech. A/P Problem List: (1) Generalized weakness ICD Codes: R53.1 - Weakness Status: Acute Plan: Generalized weakness- likely related to dehydration Fever WBC 13.1 on admission --> 11.7 (02/02) after IV fluids Given Vancomycin x1 in ER will not continue at this time await culture results PT eval recommend rehab vs home with home PT Patient would like to go home with home HHC and PT diabetes mellitus type 2- labile hold oral diabetic medication diabetic diet Accu checks ACHS with SSI coverage Hyponatremia- 129 on admission, 136 (02/01) continue to hold HCTZ-spironolactone IV fluids- DC 'd (02/01) Decreased appetite start Remeron (01/31) Chronic buttock wound consult wound care wound examined appears clean, there is no drainage, erythema or mal odor present wound cultured in ER grew MRSA and Group D Enterococcus- possible colonization as wound clinically does not appear infected Mupirocin topical BID x 10 days Family very concerned regarding wound culture consult ID Plan to DC home with HHC once cleared by ID Blood culture 05/07 bottles reports Staph Sp Coagulase Negative reviewed by myself and Dr. Soto. Clinically patient appears well, likely contamination. plan to DC home with HHC once cleared by ID chronic kidney disease avoid nephrotoxic agents monitor hypertension- stable continue home lisinopril monitor trend Hyperlipidemia continue home Zetia DVT prophylaxis with SCDs Discussed the possibility of SNF for short term rehab/strengthen. Patient refused Plan to DC home with HHC once patient cleared by ID Updated daughter Ermelinda Tellez over the phone Addendum 02/03/17 10:[address] Ling who has evaluated this patient and case feels that the patient does not have an active infection no need for systemic antibiotics, possible colonization. Cleared to DC (2) DM2 (diabetes mellitus, type 2) ICD Codes: E11.9 - Type 2 diabetes mellitus without complications Status: Chronic (3) HTN (hypertension) ICD Codes: I10 - Essential (primary) hypertension Status: Chronic (4) CKD (chronic kidney disease), stage IV ICD Codes: N18.4 - Chronic kidney disease, stage 4 (severe) Assessment and Plan Patient examined. Assessment and plan formulated with Sandy Vyas PA-C. I agree with the above. dehydration resolved pt alert and oriented and refused snf..wants hhc/pt with continued care of her wound. topical abx and care ordered. the wound was not draining/no foul odor or cellulitis. observe closely Sandy Vyas Feb 03, 2017 09:18
--- NOTE | 2017-02-03 10:35 | HHI.DS ---
Discharge Summary Admission Date Jan 31, 2017 at 17:04 Discharge Date: Feb 03, 2017 Admitting Diagnosis generalized weakness, fever (1) Generalized weakness ICD Codes: R53.1 - Weakness Status: Acute (2) DM2 (diabetes mellitus, type 2) ICD Codes: E11.9 - Type 2 diabetes mellitus without complications Status: Chronic (3) HTN (hypertension) ICD Codes: I10 - Essential (primary) hypertension Status: Chronic (4) CKD (chronic kidney disease), stage IV ICD Codes: N18.4 - Chronic kidney disease, stage 4 (severe) Consultants Dr. Ling Procedures none Brief History This is a 81 year old female patient with past medical history which includes chronic buttock wound, diabetes mellitus type 2, chronic kidney disease stage IV , hypertension and uterine fibroids. Patient presents to the hospital today with concerns regarding fever and generalized weakness. Patient returned home from rehabilitation at [facility] on Thursday, which was 4 days ago. 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 Over the past four days patient has been more fatigued , agitated and weaker. Today her home health nurse came to change the dressings on her chronic buttock wound and noted a fever. Family does not recall exact temperature. The home health nurse then called 911. The patient reports feeling generally unwell and weak. Patient also reports pain bilateral shoulders, arms and buttock wound.She denies headache, chest pain, shortness of breath, abdominal pain, nausea, vomiting, diarrhea. In talking with the family more they report a decline in appetite over the last month. CBC/BMP: 02/01/17 1005 02/01/17 1005 Significant Findings Laboratory Tests Test 01/31/17 14:40 01/31/17 15:45 01/31/17 18:15 02/01/17 10:05 White Blood Count 13.1 TH/MM3 (4.0-11.0) 11.7 TH/MM3 (4.0-11.0) Hemoglobin 10.4 GM/DL (11.6-15.3) 10.1 GM/DL (11.6-15.3) Hematocrit 32.1 % (35.0-46.0) 31.1 % (35.0-46.0) Mean Corpuscular Volume 79.3 FL (80.0-100.0) 79.8 FL (80.0-100.0) Mean Corpuscular Hemoglobin 25.6 PG (27.0-34.0) 26.0 PG (27.0-34.0) Red Cell Distribution Width 19.3 % (11.6-17.2) 19.0 % (11.6-17.2) Neutrophils (%) (Auto) 81.9 % (16.0-70.0) 71.4 % (16.0-70.0) Neutrophils # (Auto) 10.7 TH/MM3 (1.8-7.7) 8.4 TH/MM3 (1.8-7.7) Creatinine 1.08 MG/DL (0.50-1.00) Random Glucose 162 MG/DL (74-106) 132 MG/DL (74-106) Albumin 2.3 GM/DL (3.4-5.0) Aspartate Amino Transf (AST/SGOT) 10 U/L (15-37) Sodium Level 129 MEQ/L (136-145) Chloride Level 96 MEQ/L (98-107) Estimat Glomerular Filtration Rate 59 ML/MIN (>89) 79 ML/MIN (>89) Lactic Acid Level 2.3 mmol/L (0.4-2.0) Total Creatine Kinase 24 U/L (26-192) Troponin I LESS THAN 0.02 NG/ML Red Blood Count 3.90 MIL/MM3 (4.00-5.30) Imaging Last Impressions Chest X-Ray 01/31/17 1432 Signed Impressions: Service Date/Time: Tuesday, January 31, 2017 14:46 - CONCLUSION: 1. No acute cardiopulmonary disease. Rosendo Matthews MD PE at Discharge GENERAL: This is an obese elderly female patient, in no apparent distress. SKIN: Cool and dry. buttock wound stage two no drainage or odor noted CARDIOVASCULAR: Regular rate and rhythm RESPIRATORY: Clear to auscultation. Breath sounds equal bilaterally. No wheezes , rales, or rhonchi. GASTROINTESTINAL: Abdomen soft, non-tender, nondistended. No hepato-splenomegaly , or palpable masses. No guarding. MUSCULOSKELETAL: Extremities without clubbing, cyanosis, or edema. No joint tenderness, effusion, or edema noted. No calf tenderness. Negative Homans sign bilaterally. NEUROLOGICAL: Awake and alert. No focal deficits. Motor and sensory grossly within normal limits. 4 out of 5 muscle strength in all muscle groups. Normal speech. Hospital Course Generalized weakness- likely related to dehydration Fever WBC 13.1 on admission --> 11.7 (02/02) after IV fluids Given Vancomycin x1 in ER will not continue at this time await culture results PT dottyal recommend rehab vs home with home PT Patient would like to go home with home HHC and PT diabetes mellitus type 2- labile hold oral diabetic medication diabetic diet Accu checks ACHS with SSI coverage Hyponatremia- 129 on admission, 136 (02/01) continue to hold HCTZ-spironolactone IV fluids- DC 'd (02/01) Decreased appetite start Remeron (01/31) Chronic buttock wound consult wound care wound examined appears clean, there is no drainage, erythema or mal odor present wound cultured in ER grew MRSA and Group D Enterococcus- possible colonization as wound clinically does not appear infected Mupirocin topical BID x 10 days Family very concerned regarding wound culture consult ID Plan to DC home with HHC once cleared by ID Blood culture 05/07 bottles reports Staph Sp Coagulase Negative reviewed by myself and Dr. Soto. Clinically patient appears well, likely contamination. plan to DC home with C once cleared by ID chronic kidney disease avoid nephrotoxic agents monitor hypertension- stable continue home lisinopril monitor trend Hyperlipidemia continue home Zetia DVT prophylaxis with SCDs Discussed the possibility of SNF for short term rehab/strengthen. Patient refused Plan to DC home with [facility] once patient cleared by ID Updated daughter Ermelinda Tellez over the phone Addendum 02/03/17 10:[address] Ling who has evaluated this patient and case feels that the patient does not have an active infection no need for systemic antibiotics, possible colonization. Cleared to DC Pt Condition on Discharge: Stable Discharge Disposition: Disch w/ Home Health Serv Discharge Instructions DIET: Follow Instructions for: Diabetic Diet Additional Diet Instructions: encourage by mouth hydration Activities you can perform: Regular-No Restrictions Follow up Referrals: PCP Follow-up - [address] Bee New Medications: Mupirocin Topical (Mupirocin Topical) 2 % Oint 1 APPLIC TOPICAL BID for Mgmt Bacterial Infection for 10 Days, #1 TUBE 0 Refills apply to buttock wound BID for 10 days Mirtazapine (Mirtazapine) 15 Mg Tab 30 MG PO HS for appetite stimulant/ depression, #30 TAB 0 Refills Continued Medications: Ezetimibe (Zetia) 10 Mg Tab 10 MG PO DAILY, #30 TAB 0 Refills Glimepiride (Glimepiride) 1 Mg Tab 1 MG PO BID for Blood Sugar Management, #30 TAB 0 Refills Take with breakfast or first main meal Lisinopril (Lisinopril) 10 Mg Tab 10 MG PO DAILY, #30 TAB 0 Refills Blacklick-3 Fatty Acids (Fish Oil) 1,000 Mg Cap 1000 MG PO DAILY Tramadol (Tramadol) 50 Mg Tab 50 MG PO BID PRN for PAIN, TAB 0 Refills Walker with Front Wheels (Walker with Front Wheels) 1 Mis Mis 1 EA .ROUTE DIRECTED, #1 EA 0 Refills Discontinued Medications: Oxycodone-Acetaminophen (Percocet) 5-325 mg Tab 1 TAB PO Q6H PRN for PAIN, #10 TAB 0 Refills Spironolactone-Hydrochlorothiazide (Spironolactone-Hydrochlorothiazide) 25-25 Mg Tab 1 TAB PO DAILY, #30 TAB 0 Refills Sandy Vyas Feb 03, 2017 10:35 Jacky Soto MD Feb 03, 2017 14:51
--- NOTE | 2017-02-03 10:36 | HHI.DCPOC ---
Discharge Care Plan Diagnosis: (1) Dehydration (2) Generalized weakness Goals to Promote Your Health * To prevent worsening of your condition and complications * To maintain your health at the optimal level Directions to Meet Your Goals Take your medications as prescribed Follow your dietary instruction Follow activity as directed Keep your appointments as scheduled Take your immunizations and boosters as scheduled If your symptoms worsen call your PCP, if no PCP go to Urgent Care Center or Emergency Room Smoking is Dangerous to Your Health. Avoid second hand smoke Call the 24-hour hour crisis hotline for domestic abuse at Sandy Vyas Feb 03, 2017 10:36
[2017-02-03] MEDS: EZETIMIBE 10 MG TAB PO SCH (10:39)
--- NOTE | 2017-02-03 10:39 | PD.ID.CON ---
History of Present Illness Service ID Consult Requested By Reason for Consult Evaluation and mment of Sacral decub wound with MRSA and E.faecalis ? infection. Primary Care Physician Ron Bee D.O. Diagnoses: History of Present Illness is a 81 y/o AAF with PMHx of diabetes mellitus type 2, chronic kidney disease stage IV, hypertension and uterine fibroids. Patient presents to the hospital today with concerns regarding fever and generalized weakness. Patient returned home from rehabilitation at [facility] on Thursday, which was 4 days ago. Per family at bedside patient was better and overall appeared well when she initially returned home. Over the past four days patient has been more fatigued, agitated and weaker. Today her home health nurse came to change the dressings on her chronic buttock wound and noted a fever. Family does not recall exact temperature. The home health nurse then called 911. The patient reports feeling generally unwell and weak. Patient also reports pain bilateral shoulders, arms and buttock wound.She denies headache, chest pain, shortness of breath, abdominal pain, nausea, vomiting, diarrhea. ID consulted for evaluation and Mment of sacral decub wound with MRSA and E.faecalis ? infection. Review of Systems Constitutional: DENIES: Diaphoretic episodes, Fatigue, Fever, Weight gain, Weight loss, Chills, Dizziness, Change in appetite, Night Sweats Endocrine: DENIES: Abnorml menstrual pattern, Heat/cold intolerance, Polydipsia , Polyuria, Polyphagia Eyes: DENIES: Blurred vision, Diplopia, Eye inflammation, Eye pain, Vision loss , Photosensitivity, Double Vision Ears, nose, mouth, throat: DENIES: Tinnitus, Hearing loss, Vertigo, Nasal discharge, Oral lesions, Throat pain, Hoarseness, Ear Pain, Running Nose, Epistaxis, Sinus Pain, Toothache, Odynophagia Respiratory: DENIES: Apneas, Cough, Snoring, Wheezing, Hemoptysis, Sputum production, Shortness of breath Cardiovascular: DENIES: Chest pain, Palpitations, Syncope, Dyspnea on Exertion , PND, Lower Extremity Edema, Orthopnea, Claudication Gastrointestinal: DENIES: Abdominal pain, Black stools, Bloody stools, Constipation, Diarrhea, Nausea, Vomiting, Difficulty Swallowing, Anorexia Genitourinary: DENIES: Abnormal vaginal bleeding, Dysmenorrhea, Dyspareunia, Sexual dysfunction, Urinary frequency, Urinary incontinence, Urgency, Hematuria , Dysuria, Nocturia, Vaginal discharge Musculoskeletal: DENIES: Joint pain, Muscle aches, Stiffness, Joint Swelling, Back pain, Neck pain Integumentary: DENIES: Abnormal pigmentation, Pruritus, Rash, Nail changes, Breast masses, Breast skin changes, Nipple discharge Hematologic/lymphatic: DENIES: Bruising, Lymphadenopathy Immunologic/allergic: DENIES: Eczema, Urticaria Neurologic: DENIES: Abnormal gait, Headache, Localized weakness, Paresthesias, Seizures, Speech Problems, Tremor, Poor Balance Psychiatric: DENIES: Anxiety, Confusion, Mood changes, Depression, Hallucinations, Agitation, Suicidal Ideation, Homicidal Ideation, Delusions Except as stated in HPI: all other systems reviewed are Neg Past Family Social History Allergies: Coded Allergies: shellfish derived (Unverified Allergy, Severe, SWELLING, DYSPNEA, 01/31/17) Past Medical History chronic buttock wound DM2. HbA1C 05/20 6.1 ckd stage 4. gfr 29 and cr 1.8 in 05/20 HTN uterine fibroids and bleeding Past Surgical History tubal ligation Embolization of uterine fibroid artery Reported Medications I attest that I obtained, reviewed or updated the home meds and current meds list (name, dose, frequency and route of administration of meds) Reported Meds & Active Scripts Active Mupirocin Topical (Mupirocin) 2 % Oint 1 Applic TOPICAL BID 10 Days apply to buttock wound BID for 10 days Mirtazapine 15 Mg Tab 30 Mg PO HS Percocet (Oxycodone-Acetaminophen) 5-325 mg Tab 1 Tab PO Q6H PRN Walker with Front Wheels (Device) 1 Mis Mis 1 Ea .ROUTE DIRECTED Reported Tramadol (Tramadol HCl) 50 Mg Tab 50 Mg PO BID PRN Glimepiride 1 Mg Tab 1 Mg PO BID Take with breakfast or first main meal Fish Oil (Climax-3 Fatty Acids) 1,000 Mg Cap 1,000 Mg PO DAILY Zetia (Ezetimibe) 10 Mg Tab 10 Mg PO DAILY Lisinopril 10 Mg Tab 10 Mg PO DAILY Active Ordered Medications reviewed med list. Tylenol 400 mg po q8hrs prn Mupirocin ointment for local application Naloxone prn opioid antagonist. Mirtazapine 15 Mg Tab 30 Mg PO HS Percocet (Oxycodone-Acetaminophen) 5-325 mg Tab 1 Tab PO Q6H PRN Tramadol (Tramadol HCl) 50 Mg Tab 50 Mg PO BID PRN Glimepiride 1 Mg Tab 1 Mg PO BID Take with breakfast or first main meal Fish Oil (Climax-3 Fatty Acids) 1,000 Mg Cap 1,000 Mg PO DAILY Zetia (Ezetimibe) 10 Mg Tab 10 Mg PO DAILY Lisinopril 10 Mg Tab 10 Mg PO DAILY Family History reviewed and NC to current problems Social History No alcohol, no smoking, no drugs. Uses a wheelchair at home. Physical Exam Vital Signs Vital Signs Date Time Temp Pulse Resp B/P (MAP) Pulse Ox O2 Delivery O2 Flow Rate FiO2 02/03/17 07:27 98.6 95 18 138/62 (87) 99 02/03/17 03:40 98.0 89 18 114/67 (83) 98 02/03/17 00:05 98.1 90 18 116/65 (82) 99 02/02/17 19:42 98.0 92 18 114/56 (75) 99 02/02/17 16:56 16 02/02/17 12:50 18 02/02/17 11:16 97.5 91 17 138/69 (92) 98 Physical Exam GENERAL: This is a well-nourished, well-developed patient, in no apparent distress. SKIN: No rashes, ecchymoses or lesions. Cool and dry. HEAD: Atraumatic. Normocephalic. No temporal or scalp tenderness. EYES: Pupils equal round and reactive. Extraocular motions intact. No scleral icterus. No injection or drainage. ENT: Nose without bleeding, purulent drainage or septal hematoma. Throat without erythema, tonsillar hypertrophy or exudate. Uvula midline. Airway patent. NECK: Trachea midline. No JVD or lymphadenopathy. Supple, nontender, no meningeal signs. CARDIOVASCULAR: Regular rate and rhythm without murmurs, gallops, or rubs. RESPIRATORY: Clear to auscultation. Breath sounds equal bilaterally. No wheezes , rales, or rhonchi. GASTROINTESTINAL: Abdomen soft, non-tender, nondistended. Obese. Sacral decub: in crack of buttock was a small quarter shaped lesion unstageable , with no e.o active infection. MUSCULOSKELETAL: Extremities without clubbing, cyanosis, or edema. No joint tenderness, effusion, or edema noted. No calf tenderness. Negative Homans sign bilaterally. NEUROLOGICAL: Awake and alert. Cranial nerves II through XII intact. Motor and sensory grossly within normal limits. Five out of 5 muscle strength in all muscle groups. Normal speech. Psych cooperative IV line sites with no e.o infection. Laboratory Date/Time Source Procedure Growth Status 01/31/17 14:40 Blood Peripheral Aerobic Blood Culture - Preliminary Staph Sp Coagulase Negative Resulted 01/31/17 14:40 Blood Peripheral Anaerobic Blood Culture - Preliminary NO GROWTH IN 2 DAYS Resulted 01/31/17 15:35 Nasal Aspirate Influenza Types A,B Antigen (RANJIT) - Final NEGATIVE FOR FLU A AND B ANTIGEN.... Complete 01/31/17 14:30 Wound Buttock Gram Stain - Final Resulted 01/31/17 14:30 Wound Culture - Preliminary S. Aureus Mrsa Group D Enterococcus Resulted Result Diagram: 02/01/17 1005 02/01/17 1005 Imaging Last Impressions Chest X-Ray 01/31/17 1432 Signed Impressions: Service Date/Time: Tuesday, January 31, 2017 14:46 - CONCLUSION: 1. No acute cardiopulmonary disease. Rosendo Matthews MD Assessment and Plan Assessment and Plan Sacral decub unstageable. MRSA and E.faecalis colonization Obesity 110 kg Encephalopathy resolved. DM uncontrolled. Recs continue wound care. No antibiotics needed. Avoid local moisture. consider placing ABD pads in buttock folds. Billy Vyas. Will sign off please call back if any change in clinical condition or questions. Discussed Condition With d/w pt she would like to continue aggressive care. No advance directive on file. Full code. Neeta Ling MD Feb 03, 2017 10:39
[2017-02-03] MEDS: traMADol HCL 50 MG TAB PO PRN (10:40)
[2017-02-03] MEDS: LISINOPRIL 10 MG TAB PO SCH (10:40)
[2017-02-03 11:18] VITALS: BP 140/75; PULSE 99; RESP 19; TEMP 98.6; O2SAT 100
[2017-02-03 11:40] VITALS: RESP 20
== END 2017-02-03 15:30 | disposition home or self-care (01) ==
LOC: NEPE 14:12 → NEDA 17:04 → NEPHCDU 18:53
PROVIDERS: ADMIT Hospitalist; ATTEND Hospitalist
DX: R53.1 Weakness (principal); I12.9 Hypertensive chronic kidney disease with stage 1 through stage 4 chronic kidney disease, or unspecified chronic kidney disease; E11.22 Type 2 diabetes mellitus with diabetic chronic kidney disease; E11.65 Type 2 diabetes mellitus with hyperglycemia; N18.4 Chronic kidney disease, stage 4 (severe); L89.150 Pressure ulcer of sacral region, unstageable; B95.62 Methicillin resistant Staphylococcus aureus infection as the cause of diseases classified elsewhere; A48.8 Other specified bacterial diseases; R50.9 Fever, unspecified; E87.1 Hypo-osmolality and hyponatremia; R63.0 Anorexia; I95.9 Hypotension, unspecified; E78.5 Hyperlipidemia, unspecified; D25.9 Leiomyoma of uterus, unspecified; R53.83 Other fatigue; D64.9 Anemia, unspecified; D72.829 Elevated white blood cell count, unspecified; I47.1 Supraventricular tachycardia; R94.31 Abnormal electrocardiogram [ECG] [EKG]; R06.02 Shortness of breath; M79.602 Pain in left arm; M79.601 Pain in right arm; M54.30 Sciatica, unspecified side; E78.00 Pure hypercholesterolemia, unspecified; M17.12 Unilateral primary osteoarthritis, left knee; E66.9 Obesity, unspecified; Z79.899 Other long term (current) drug therapy; X58.XXXD Exposure to other specified factors, subsequent encounter
CPT/HCPCS: 71010; 80048; 80053; 81001; 82550; 82948; 83605; 83735; 84484; 85025; 85610; 85730; 86403; 87040; 87070; 87077; 87147; 87186; 87205; 87804; 93005; 96360; G0378; G8987-GP; G8988-GP; J1815; J3370; J3480; J7030; J7050

== ENCOUNTER 2017-04-08 14:39 | Inpatient (IN) | payer MEDICARE ==
[~2017-04-08] VITALS: Ht 175.3 cm; Wt 98.4 kg
[~2017-04-08 14:39] MED LIST changes: +EZET10 PO; -MEDR4PAK PO; +MIRTA15 PO; +MUPI2OIN TOPICAL; -PERC5TAB12 PO; -SPIR25TA3 PO; -ZETI10TA5 PO
[2017-04-08 14:53] VITALS: BP 82/48; PULSE 100; RESP 18; TEMP 97.9; O2SAT 100
--- NOTE | 2017-04-08 16:16 | PD ---
HPI Chief Complaint: Altered Mental Status Time Seen by Provider: 16:10 Travel History International Travel<30 days: No Contact w/Intl Traveler<30days: No Traveled to known affect area: No History of Present Illness HPI 81-year-old female with PMH of HTN, CHF, DM, NARGIS presents to the ED via EMS for evaluation of bilateral joint and leg pain, worsening over the last 3 weeks. She states that she is minimally ambulatory but uses the legs to push her wheelchair around. She states even this is becoming more painful. She also complains of sacral ulcer, present for "about 1 month." She states that she has home healthcare for the wound 3 times a week. She endorses intermittent, nonbloody diarrhea since last week. She endorses accompanying nausea and decreased appetite. He endorses chronic urinary incontinence. She denies fever , chills, chest pain, shortness of breath, vomiting. No treatment attempted at home. Patient is unsure of her home medications. PFSH Past Medical History Arthritis: Yes Asthma: No Autoimmune Disease: No Blood Disorders: No Anxiety: No Depression: No Heart Rhythm Problems: No Cancer: No Cardiovascular Problems: Yes (CHF) High Cholesterol: Yes Chemotherapy: No Chest Pain: No Congestive Heart Failure: Yes COPD: No Diabetes: Yes Diminished Hearing: No Endocrine: No Gastrointestinal Disorders: No Genitourinary: No Headaches: Yes Hepatitis: No Hiatal Hernia: No Hypertension: Yes Immune Disorder: No Implanted Vascular Access Dvce: No Musculoskeletal: No Neurologic: No Psychiatric: No Reproductive: No Respiratory: No Immunizations Current: Yes Radiation Therapy: No Sleep Apnea: No Thyroid Disease: No Menopausal: Yes Tubal Ligation: Yes Past Surgical History Abdominal Surgery: No AICD: No Cardiac Surgery: No Ear Surgery: No Endocrine Surgery: No Eye Surgery: No Genitourinary Surgery: No Gynecologic Surgery: Yes (TUBAL LIGATION, Endometrial D&C) Joint Replacement: No Neurologic Surgery: No Oral Surgery: No Pacemaker: No Thoracic Surgery: No Other Surgery: Yes Family History Family Hypercholesterolemia: Yes Social History Alcohol Use: Yes (BEER WEEKENDS) Tobacco Use: No Substance Use: No Allergies-Medications (Allergen,Severity, Reaction): Coded Allergies: shellfish derived (Unverified Allergy, Severe, SWELLING, DYSPNEA, 04/08/17) Reported Meds & Prescriptions Reported Meds & Active Scripts Active Mupirocin Topical (Mupirocin) 2 % Oint 1 Applic TOPICAL BID 10 Days apply to buttock wound BID for 10 days Mirtazapine 15 Mg Tab 30 Mg PO HS Reported Spironolactone-Hydrochlorothiazide 25-25 Mg Tab 1 Tab PO DAILY Nystatin Topical (Nystatin) 100,000 unit/gm Cream 1 Applic TOPICAL TID Amitriptyline (Amitriptyline HCl) 50 Mg Tab 50 Mg PO HS Tramadol (Tramadol HCl) 50 Mg Tab 50 Mg PO BID PRN Glimepiride 1 Mg Tab 1 Mg PO BID Take with breakfast or first main meal Fish Oil ([place]-3 Fatty Acids) 1,000 Mg Cap 1,000 Mg PO DAILY Zetia (Ezetimibe) 10 Mg Tab 10 Mg PO DAILY Lisinopril 10 Mg Tab 10 Mg PO DAILY Review of Systems Except as stated in HPI: all other systems reviewed are Neg Physical Exam Narrative GENERAL: Obese, female in no acute distress. SKIN: Focused skin assessment warm/dry. Sacral ulcer measuring 2 x 2 x 1. Scant, odoriferous drainage. Well granulated. HEAD: Normocephalic. EYES: No scleral icterus. No injection or drainage. NECK: Supple, trachea midline. No JVD or lymphadenopathy. CARDIOVASCULAR: Regular rate and rhythm without murmurs, gallops, or rubs. RESPIRATORY: Breath sounds clear and equal bilaterally. No accessory muscle use. GASTROINTESTINAL: Abdomen soft, non-tender, nondistended. Active bowel sounds. MUSCULOSKELETAL: No cyanosis, or edema. Tender to palpation of the bilateral hip and knee joints. No popliteal tenderness to palpation. Homans sign negative bilaterally. 2+ DP pulses bilaterally. 2/5 strength in the BLE. Active range of motion in the hip and knee joints bilaterally without limitation. BACK: Nontender without obvious deformity. No CVA tenderness. Data Data Last Documented VS Vital Signs Date Time Temp Pulse Resp B/P (MAP) Pulse Ox O2 Delivery O2 Flow Rate FiO2 04/08/17 19:46 99 16 133/55 (81) 95 Room Air 04/08/17 14:53 97.9 Orders Orders Complete Blood Count With Diff (04/08/17 16:16) Comprehensive Metabolic Panel (04/08/17 16:16) Urinalysis - C+S If Indicated (04/08/17 16:16) Ondansetron Odt (Zofran Odt) (04/08/17 16:30) Cath For Specimen (04/08/17 16:18) Iv Access Insert/Monitor (04/08/17 16:45) Ecg Monitoring (04/08/17 16:45) Oximetry (04/08/17 16:45) NPO (04/08/17 16:45) B-Type Natriuretic Peptide (04/08/17 16:45) Chest, Single Ap (04/08/17 ) Vascular Access Team Consult/P PRN (04/08/17 17:45) Vascular Poc Ultrasound (04/08/17 ) Sodium Chlorid 0.9% 500 Ml Inj (Ns 500 M (04/08/17 20:00) Wound Culture And Gram Stain (04/08/17 20:01) Tramadol (Ultram) (04/08/17 20:15) Admit Order (Ed Use Only) (04/08/17 20:23) Labs Laboratory Tests Test 04/08/17 18:50 White Blood Count 9.7 TH/MM3 Red Blood Count 3.74 MIL/MM3 Hemoglobin 9.6 GM/DL Hematocrit 29.9 % Mean Corpuscular Volume 79.9 FL Mean Corpuscular Hemoglobin 25.8 PG Mean Corpuscular Hemoglobin Concent 32.2 % Red Cell Distribution Width 20.6 % Platelet Count 329 TH/MM3 Mean Platelet Volume 7.9 FL Neutrophils (%) (Auto) 72.3 % Lymphocytes (%) (Auto) 19.0 % Monocytes (%) (Auto) 7.1 % Eosinophils (%) (Auto) 1.0 % Basophils (%) (Auto) 0.6 % Neutrophils # (Auto) 7.0 TH/MM3 Lymphocytes # (Auto) 1.8 TH/MM3 Monocytes # (Auto) 0.7 TH/MM3 Eosinophils # (Auto) 0.1 TH/MM3 Basophils # (Auto) 0.1 TH/MM3 CBC Comment DIFF FINAL Differential Comment Blood Urea Nitrogen 91 MG/DL Creatinine 6.36 MG/DL Random Glucose 62 MG/DL Total Protein 8.4 GM/DL Albumin 2.3 GM/DL Calcium Level 10.2 MG/DL Alkaline Phosphatase 103 U/L Aspartate Amino Transf (AST/SGOT) 15 U/L Alanine Aminotransferase (ALT/SGPT) 11 U/L Total Bilirubin 0.6 MG/DL Sodium Level 131 MEQ/L Potassium Level 6.1 MEQ/L Chloride Level 97 MEQ/L Carbon Dioxide Level 23.9 MEQ/L Anion Gap 10 MEQ/L Estimat Glomerular Filtration Rate 8 ML/MIN B-Type Natriuretic Peptide 27 PG/ML MDM Medical Decision Making Medical Screen Exam Complete: Yes Emergency Medical Condition: Yes Differential Diagnosis OA versus UTI versus metabolic disturbance versus other Narrative Course 81-year-old female with PMH of HTN, CHF, DM presents to the ED via EMS for evaluation of bilateral joint and leg pain, worsening over the last 2 weeks. She states that she is minimally ambulatory but uses the legs to push her wheelchair around. She states this is becoming more painful. She also complains of sacral ulcer, present for "about 1 month." She states that she has home healthcare for the wound 3 times a week. She endorses intermittent, nonbloody diarrhea since last week. She endorses accompanying nausea and decreased appetite. He endorses chronic urinary incontinence. She denies fever , chills, chest pain, shortness of breath, vomiting. Vitals reviewed. On physical exam is somewhat obese black female in no acute distress. There is a 2 cm sacral ulcer without signs of active infection, chest CTA B, abdomen soft and nontender. Joints of the lower extremities are nontender. Homans sign negative bilaterally. IV was established. Patient was administered 0.5L NS IV. CBC: WBC 9.7, hemoglobin 9.6, chronic per record review. CMP sodium 131, chloride 97, calcium 10.2. Potassium 6.1. BUN 91, creatinine 6.36. ENT: Pending. UA: No culture indicated. CXR: No acute disease per radiology read. This is acute on chronic kidney failure. I discussed the results of the workup with the family as well as the need for admission. They're agreeable to the plan. I spoke with Dr. Rosas who agrees to accept the patient to the medicine service. Please see medicine notes for disposition. Maribel Solano Apr 08, 2017 16:16
[2017-04-08] MEDS ORDERED: ONDANSETRON ODT 4 MG TAB PO ONE (16:30)
--- NOTE | 2017-04-08 18:02 | RADRPT ---
EXAM DATE/TIME: 04/08/2017 17:26 [facility] COMPARISON: CHEST SINGLE AP, January 31, 2017, 14:46. INDICATIONS : Short of breath. MEDICAL HISTORY : None. SURGICAL HISTORY : None. ENCOUNTER: Initial ACUITY: 1 day PAIN SCORE: 0/10 LOCATION: Bilateral chest FINDINGS: A single view of the chest demonstrates the lungs to be symmetrically aerated without evidence of mas s, infiltrate or effusion. The cardiomediastinal contours are unremarkable. Osseous structures are intact. CONCLUSION: No acute disease. Chico Saldana MD on April 08, 2017 at 18:00 Board Certified Radiologist. This report was verified electronically.
[2017-04-08 19:14] LABS: BASOPHIL # 0.1 TH/MM3 (0-0.2); BASOPHIL % 0.6 % (0.0-2.0); EOSINOPHIL # 0.1 TH/MM3 (0-0.4); HEMATOCRIT 29.9 % (35.0-46.0); HEMO FLAGS DIFF FINAL; LYMPHOCYTE # 1.8 TH/MM3 (1.0-4.8); MEAN CELL VOLUME 79.9 FL (80.0-100.0); MEAN CORPUSCULAR HEMOGLOBIN 25.8 PG (27.0-34.0); MEAN CORPUSCULAR HGB CONC 32.2 % (32.0-36.0); MONO % 7.1 % (0.0-8.0); NEUT % 72.3 % (16.0-70.0); PLATELET COUNT 329 TH/MM3 (150-450); RED BLOOD COUNT 3.74 MIL/MM3 (4.00-5.30); RED CELL DISTRIBUTION WIDTH 20.6 % (11.6-17.2); WHITE BLOOD COUNT 9.7 TH/MM3 (4.0-11.0)
[2017-04-08 19:32] LABS: ALT (GPT) 11 U/L (10-53)
[2017-04-08 19:34] LABS: ANION GAP 10 MEQ/L (5-15); BICARBONATE 23.9 MEQ/L (21.0-32.0); BLOOD UREA NITROGEN 91 MG/DL (7-18); CHLORIDE 97 MEQ/L (98-107); GLOMERULAR FILTRATION RATE 8 ML/MIN (>89); POTASSIUM 6.1 MEQ/L (3.5-5.1); SODIUM (NA) 131 MEQ/L (136-145)
[2017-04-08 19:39] LABS: ALKALINE PHOSPHATASE 103 U/L (45-117); AST (GOT) 15 U/L (15-37); TOTAL BILIRUBIN ADULT 0.6 MG/DL (0.2-1.0)
[2017-04-08 19:46] VITALS: BP 133/55; PULSE 99; RESP 16; O2SAT 95
[2017-04-08] MEDS ORDERED: SODIUM CHLORID 0.9% 500 ML INJ 500 ML IV ONE (20:00)
[2017-04-08] MEDS ORDERED: NYST15T TOPICAL (20:05)
[2017-04-08] MEDS ORDERED: SPIR25TA3 PO (20:05)
[2017-04-08] MEDS ORDERED: AMIT50TA3 PO (20:05)
[2017-04-08] MEDS ORDERED: traMADol HCL 50 MG TAB PO ONE (20:15)
[2017-04-08 21:06] LABS: BACTERIA, URINE OCC /hpf; BLOOD, URINE NEG (NEG); COMMENT (UR) CULT NOT INDICATED; CULTURE IF INDICATED CULT NOT INDICATED; GLUCOSE,URINE NEG (NEG); HYALINE CAST, URINE 20 /lpf (RARE); KETONE, URINE NEG (NEG); MUCUS URINE FEW /lpf (OCC); NITRITE,URINE NEG (NEG); SQUAMOUS EPITHELIAL CELL URINE 9 /hpf (0-5); URINE COLOR YELLOW (YELLW/STRAW)
[2017-04-08] MEDS ORDERED: SODIUM CHLOR 0.9% 1000 ML INJ 1,000 ML IV SCH (21:51)
[2017-04-08] MEDS ORDERED: SODIUM CHLORIDE 0.9% FLUSH 10 ML FLUSH IV FLUSH PRN (22:00)
[2017-04-08] MEDS ORDERED: ENOXAPARIN SODIUM 30 MG/0.3 ML SYRINGE SQ SCH (22:00)
[2017-04-08] MEDS ORDERED: ONDANSETRON HCL 4 MG/2 ML VIAL IVP PRN (22:00)
[2017-04-08] MEDS ORDERED: LACTULOSE SYRUP 20 GM/30 ML CUP PO PRN (22:00)
[2017-04-08] MEDS ORDERED: MAGNESIUM HYDROXIDE SUSP 30 ML CUP PO PRN (22:00)
[2017-04-08] MEDS ORDERED: traMADol HCL 50 MG TAB PO PRN (22:00)
[2017-04-08] MEDS ORDERED: SENNOSIDES 8.6 MG TAB PO PRN (22:00)
[2017-04-08] MEDS ORDERED: BISACODYL 10 MG SUPP RECTAL PRN (22:00)
[2017-04-08] MEDS ORDERED: NALOXONE HCL 0.4 MG/ML AMP IV PUSH PRN (22:00)
[2017-04-08] MEDS ORDERED: MORPHINE SULFATE 4 MG/ML INJ IV PUSH PRN (22:00)
--- NOTE | 2017-04-08 22:11 | HHI.HP ---
HPI Service [facility] Hospitalists Primary Care Physician Ron Bee D.O. Admission Diagnosis acute on chronic kidney injury, dehydration Chief Complaint: generalized weakness difficulty with any ambulation 2 weeks Travel History International Travel<30 Days: No Contact w/Intl Traveler <30 Da: No Traveled to Known Affected Are: No History of Present Illness 81-year-old female with PMH of HTN, CHF, DM, NARGIS presents to the ED via EMS for evaluation of bilateral joint and leg pain, worsening over the last 3 weeks. She states that she is minimally ambulatory but uses the legs to push her wheelchair around. She states even this is becoming more painful. She also complains of sacral ulcer, present for "about 5 months." She states that she has home healthcare for the wound 3 times a week. She endorses intermittent, nonbloody diarrhea since last week. She endorses accompanying nausea and decreased appetite. He endorses chronic urinary incontinence. She denies fever , chills, chest pain, shortness of breath, vomiting. No treatment attempted at home. Patient states has been taking home meds ,in er was found to be hypotensive received IV fluid and has renal failure new as compared to labs from February. Review of Systems Constitutional: COMPLAINS OF: Fatigue, Weight loss Gastrointestinal: COMPLAINS OF: Nausea Musculoskeletal: COMPLAINS OF: Joint pain, Back pain Neurologic: COMPLAINS OF: Localized weakness Other sacral ulcer Past Family Social History Past Medical History chf,hyperlipid dm htn wound sacral Past Surgical History tubal ligation Reported Medications Mupirocin Topical (Mupirocin) 2 % Oint 1 Applic TOPICAL BID 10 Days apply to buttock wound BID for 10 days Mirtazapine 15 Mg Tab 30 Mg PO HS Walker with Front Wheels (Device) 1 Mis Mis 1 Ea .ROUTE DIRECTED Reported Spironolactone-Hydrochlorothiazide 25-25 Mg Tab 1 Tab PO DAILY Nystatin Topical (Nystatin) 100,000 unit/gm Cream 1 Applic TOPICAL TID Amitriptyline (Amitriptyline HCl) 50 Mg Tab 50 Mg PO HS Tramadol (Tramadol HCl) 50 Mg Tab 50 Mg PO BID PRN Glimepiride 1 Mg Tab 1 Mg PO BID Take with breakfast or first main meal Fish Oil ([place]-3 Fatty Acids) 1,000 Mg Cap 1,000 Mg PO DAILY Zetia (Ezetimibe) 10 Mg Tab 10 Mg PO DAILY Lisinopril 10 Mg Tab 10 Mg PO DAILY Allergies: Coded Allergies: shellfish derived (Unverified Allergy, Severe, SWELLING, DYSPNEA, 04/08/17) Social History occasional beer weekend NS Physical Exam Vital Signs Vital Signs Date Time Temp Pulse Resp B/P (MAP) Pulse Ox O2 Delivery O2 Flow Rate FiO2 04/08/17 19:46 99 16 133/55 (81) 95 Room Air 04/08/17 14:53 97.9 100 18 82/48 (59) 100 Physical Exam GENERAL: This is a well-nourished, well-developed patient, in no apparent distress. SKIN: No rashes, ecchymoses or lesions. Cool and dry. sacral ulcer draining odorous well granulated HEAD: Atraumatic. Normocephalic. No temporal or scalp tenderness. EYES: Pupils equal round and reactive. Extraocular motions intact. No scleral icterus. No injection or drainage. ENT: Nose without bleeding, purulent drainage or septal hematoma. Throat without erythema, tonsillar hypertrophy or exudate. Uvula midline. Airway patent. NECK: Trachea midline. No JVD or lymphadenopathy. Supple, nontender, no meningeal signs. CARDIOVASCULAR: Regular rate and rhythm without murmurs, gallops, or rubs. RESPIRATORY: Clear to auscultation. Breath sounds equal bilaterally. No wheezes , rales, or rhonchi. GASTROINTESTINAL: Abdomen soft, non-tender, nondistended. No hepato-splenomegaly , or palpable masses. No guarding. MUSCULOSKELETAL: Extremities without clubbing, cyanosis, or edema. No joint tenderness, effusion, or edema noted. No calf tenderness. Negative Homans sign bilaterally. NEUROLOGICAL: Awake and alert. Cranial nerves II through XII intact. Motor and sensory grossly within normal limits. 3 out of 5 muscle strength in all muscle groups. Normal speech. Laboratory Laboratory Tests Test 04/08/17 18:50 04/08/17 20:25 White Blood Count 9.7 Red Blood Count 3.74 Hemoglobin 9.6 Hematocrit 29.9 Mean Corpuscular Volume 79.9 Mean Corpuscular Hemoglobin 25.8 Mean Corpuscular Hemoglobin Concent 32.2 Red Cell Distribution Width 20.6 Platelet Count 329 Mean Platelet Volume 7.9 Neutrophils (%) (Auto) 72.3 Lymphocytes (%) (Auto) 19.0 Monocytes (%) (Auto) 7.1 Eosinophils (%) (Auto) 1.0 Basophils (%) (Auto) 0.6 Neutrophils # (Auto) 7.0 Lymphocytes # (Auto) 1.8 Monocytes # (Auto) 0.7 Eosinophils # (Auto) 0.1 Basophils # (Auto) 0.1 CBC Comment DIFF FINAL Differential Comment Blood Urea Nitrogen 91 Creatinine 6.36 Random Glucose 62 Total Protein 8.4 Albumin 2.3 Calcium Level 10.2 Alkaline Phosphatase 103 Aspartate Amino Transf (AST/SGOT) 15 Alanine Aminotransferase (ALT/SGPT) 11 Total Bilirubin 0.6 Sodium Level 131 Potassium Level 6.1 Chloride Level 97 Carbon Dioxide Level 23.9 Anion Gap 10 Estimat Glomerular Filtration Rate 8 Urine Color YELLOW Urine Turbidity HAZY Urine pH 5.0 Urine Specific [place] 1.017 Urine Protein 30 Urine Glucose (UA) NEG Urine Ketones NEG Urine Occult Blood NEG Urine Nitrite NEG Urine Bilirubin NEG Urine Urobilinogen 2.0 Urine Leukocyte Esterase TRACE Urine WBC LESS THAN 1 Urine Squamous Epithelial Cells 9 Urine Amorphous Sediment RARE Urine Bacteria OCC Urine Hyaline Casts 20 Urine Mucus FEW Microscopic Urinalysis Comment CULT NOT INDICATED Date/Time Source Procedure Growth Status 04/08/17 20:15 Wound Buttock Gram Stain Pending Received 04/08/17 20:15 Wound Buttock Wound Culture Pending Received Result Diagram: 04/08/17 1850 04/08/17 1850 Imaging Last 24 hours Impressions Chest X-Ray 04/08/17 0000 Signed Impressions: Service Date/Time: Saturday, April 08, 2017 17:26 - CONCLUSION: No acute disease. Chico Saldana MD Course in er was given IV fluid as was hypotensive improved with fluid Caprini VTE Risk Assessment Caprini VTE Risk Assessment: Mod/High Risk (score >= 2) Caprini Risk Assessment Model Point Value = 1 Point Value = 2 Point Value = 3 Point Value = 5 Age 41-60 Minor surgery BMI > 25 kg/m2 Swollen legs Varicose veins or History of unexplained or recurrent spontaneous Oral contraceptives or hormone replacement Sepsis (< 1 month) Serious lung disease, including pneumonia (< 1 month) Abnormal pulmonary function Acute myocardial infarction Congestive heart failure (< 1 month) History of inflammatory bowel disease Medical patient at bed rest Age 61-74 Arthroscopic surgery Major open surgery (> 45 min) Laparoscopic surgery (> 45 min) Malignancy Confined to bed (> 72 hours) Immobilizing plaster cast Central venous access Age >= 75 History of VTE Family history of VTE Factor V Leiden Prothrombin [id number] Lupus anticoagulant Anticardiolipin antibodies Elevated serum homocysteine Heparin-induced thrombocytopenia Other congenital or acquired thrombophilia Stroke (< 1 month) Elective arthroplasty Hip, pelvis, or leg fracture Acute spinal cord injury (< 1 month) Prophylaxis Regimen Total Risk Factor Score Risk Level Prophylaxis Regimen 0-1 Low Early ambulation 2 Moderate Order ONE of the following: *Sequential Compression Device (SCD) *Heparin 5000 units SQ BID 3-4 Higher Order ONE of the following medications: *Heparin 5000 units SQ TID *Enoxaparin/Lovenox 40 mg SQ daily (WT < 150 kg, CrCl > 30 mL/min) *Enoxaparin/Lovenox 30 mg SQ daily (WT < 150 kg, CrCl > 10-29 mL/min) *Enoxaparin/Lovenox 30 mg SQ BID (WT < 150 kg, CrCl > 30 mL/min) AND/OR *Sequential Compression Device (SCD) 5 or more Highest Order ONE of the following medications: *Heparin 5000 units SQ TID (Preferred with Epidurals) *Enoxaparin/Lovenox 40 mg SQ daily (WT < 150 kg, CrCl > 30 mL/min) *Enoxaparin/Lovenox 30 mg SQ daily (WT < 150 kg, CrCl > 10-29 mL/min) *Enoxaparin/Lovenox 30 mg SQ BID (WT < 150 kg, CrCl > 30 mL/min) AND *Sequential Compression Device (SCD) Assessment and Plan Problem List: (1) Acute renal failure ICD Codes: N17.9 - Acute kidney failure, unspecified Plan: in the record stated had ckd stage4 but in february cr was about 1.3,will hydrate at 75 cc hr ns as BP was a little low consult renal may need dialysis if labs do not improve (2) Dehydration ICD Codes: E86.0 - Dehydration Status: Acute Plan: as above (3) DM2 (diabetes mellitus, type 2) ICD Codes: E11.9 - Type 2 diabetes mellitus without complications Status: Chronic Plan: will continue home med add sliding scale (4) HTN (hypertension) ICD Codes: I10 - Essential (primary) hypertension Status: Chronic Plan: will hold blood pressure meds as is running low and in renal failure (5) Sacral ulcer ICD Codes: L98.429 - Non-pressure chronic ulcer of back with unspecified severity Status: Chronic Plan: was on treatment by home health at home for a few months daughter not sure if was any improvement will get wound care evaluation continue mupirocin cream for now Assessment and Plan further plan as case develops Code Status full Discussed Condition With patient and daughter Physician Certification 2 Midnight Certification Type: Admission for Inpatient Services Order for Inpatient Services The services are ordered in accordance with Medicare regulations or non- Medicare payer requirements, as applicable. In the case of services not specified as inpatient-only, they are appropriately provided as inpatient services in accordance with the 2-midnight benchmark. Estimated LOS (days): 3 3 days is the estimated time the patient will need to remain in the hospital, assuming treatment plan goals are met and no additional complications. Post-Hospital Plan: Not yet determined Problem Qualifiers (1) Sacral ulcer: Qualified Codes: L98.429 - Non-pressure chronic ulcer of back with unspecified severity Kojo Jackson MD Apr 08, 2017 22:11
[2017-04-08 22:18] VITALS: BP 97/54; PULSE 92; RESP 18; O2SAT 98
[2017-04-08] MEDS ORDERED: MIRTAZAPINE 15 MG TAB PO SCH (22:30)
[2017-04-08] MEDS ORDERED: DOCUSATE SODIUM 50 MG/SENNA 8.6 MG TAB PO SCH (22:30)
[2017-04-08] MEDS ORDERED: GLIMEPIRIDE 1 MG TAB PO SCH (22:30)
[2017-04-08] MEDS ORDERED: AMITRIPTYLINE HCL 50 MG TAB PO SCH (22:30)
[2017-04-08 23:00] VITALS: BP 98/53
[2017-04-09] VITALS (9 sets, daily range): BP systolic 95–106; BP diastolic 50–55; PULSE 17–97; RESP 17–18; TEMP 95.4–97.2; O2SAT 94–98
--- NOTE | 2017-04-09 02:26 | RADRPT ---
EXAM DATE/TIME: 04/09/2017 01:23 [facility] COMPARISON: No previous studies available for comparison. INDICATIONS : Weight loss ORAL CONTRAST: No oral contrast ingested. RADIATION DOSE: 15.30 CTDIvol (mGy) MEDICAL HISTORY : Hypertension. Congestive heart failure. Cardiovascular disease SURGICAL HISTORY : Tubal ligation. ENCOUNTER: Initial ACUITY: 2 days PAIN SCALE: 3/10 LOCATION: abdomen TECHNIQUE: Volumetric scanning of the abdomen and pelvis was performed. Using automated exposure control and ad justment of the mA and/or kV according to patient size, radiation dose was kept as low as reasonably achievable to obtain optimal diagnostic quality images. DICOM format image data is available electro nically for review and comparison. FINDINGS: LOWER LUNGS: The visualized lower lungs are clear. There is a small pericardial effusion. LIVER: Homogeneous density with a low-attenuation appearance cyst in the left lobe measuring up to 1 cm.. T here is no dilation of the biliary tree. No calcified gallstones. SPLEEN: Normal size without lesion. PANCREAS: Within normal limits. KIDNEYS: Normal in size and shape. There is no solid mass, stone, or hydronephrosis. Bilateral renal cysts ar e present. ADRENAL GLANDS: Within normal limits. VASCULAR: There is no aortic aneurysm. BOWEL/MESENTERY: The stomach, small bowel, and colon demonstrate no acute abnormality. There is no free intraperitone al air or fluid. ABDOMINAL WALL: Within normal limits. RETROPERITONEUM: There is no lymphadenopathy. BLADDER: No wall thickening or mass. REPRODUCTIVE: There are multiple punctate calcifications in the anterior uterus. The uterus is prominent and inhomo geneous. The adnexa are unremarkable. INGUINAL: There is no lymphadenopathy or hernia. MUSCULOSKELETAL: Within normal limits for patient age. CONCLUSION: 1. No evidence of primary tumor or metastatic disease on this noncontrast exam. 2. Multiple low attenuation lesions in the liver which likely represent cysts or cavernous hemangioma s. 3. Small amount of pericardial fluid. 4. Small amount of pericardial fluid. Next number prominent uterus with calcified leiomyomata. Devon Marks MD on April 09, 2017 at 2:21 Board Certified Radiologist. This report was verified electronically.
[2017-04-09] MEDS: INSULIN ASPART SUPPLEMENTAL SCALE SQ SCH ×4 (07:44→20:28)
[2017-04-09] MEDS: NYSTATIN 100,000 UNIT/GM CREAM 15 GM TOPICAL SCH ×3 (08:34→12:50)
[2017-04-09] MEDS: SODIUM CHLORIDE 0.9% FLUSH 10 ML FLUSH IV FLUSH SCH ×2 (08:37→20:14)
[2017-04-09] MEDS: DOCUSATE SODIUM 50 MG/SENNA 8.6 MG TAB PO SCH ×2 (08:37→20:18)
[2017-04-09] MEDS: EZETIMIBE 10 MG TAB PO SCH (08:37)
[2017-04-09] MEDS ORDERED: DEXTROSE 50% IN WATER 50 ML VIAL(D50) IV PUSH ONE (08:45)
[2017-04-09] MEDS: DEXT 5%-NACL 0.9% 1000 ML INJ 1,000 ML IV SCH ×2 (08:51→20:19)
[2017-04-09] MEDS ORDERED: GLIMEPIRIDE 1 MG TAB PO SCH (09:00)
[2017-04-09] MEDS ORDERED: MUPIROCIN 2% OINT 22 GM TUBE TOPICAL SCH (09:00)
[2017-04-09] MEDS ORDERED: MORPHINE SULFATE 4 MG/ML INJ IV PUSH PRN (10:15)
[2017-04-09 10:50] LABS: AUTOMATED NEUTROPHIL # 5.8 TH/MM3 (1.8-7.7); BASOPHIL % 0.5 % (0.0-2.0); EOSINOPHIL # 0.1 TH/MM3 (0-0.4); EOSINOPHIL % 1.8 % (0.0-4.0); HEMATOCRIT 32.7 % (35.0-46.0); HEMO FLAGS DIFF FINAL; LYMPH % 22.7 % (9.0-44.0); LYMPHOCYTE # 1.9 TH/MM3 (1.0-4.8); MEAN CELL VOLUME 81.9 FL (80.0-100.0); MEAN CORPUSCULAR HEMOGLOBIN 25.7 PG (27.0-34.0); MEAN CORPUSCULAR HGB CONC 31.4 % (32.0-36.0); MONO % 6.6 % (0.0-8.0); NEUT % 68.4 % (16.0-70.0); PLATELET COUNT 267 TH/MM3 (150-450); RED CELL DISTRIBUTION WIDTH 20.9 % (11.6-17.2); WHITE BLOOD COUNT 8.5 TH/MM3 (4.0-11.0)
[2017-04-09 13:02] LABS: BICARBONATE 24.8 MEQ/L (21.0-32.0); MAGNESIUM 3.3 MG/DL (1.5-2.5)
[2017-04-09] MEDS ORDERED: SODIUM HYPOCHLORITE 0.125% 500 ML BTL TOPICAL PRN (15:45)
[2017-04-09] MEDS ORDERED: COLLAGENASE OINT 30 GM TUBE TOPICAL PRN (15:45)
--- NOTE | 2017-04-09 16:12 | HHI.PR ---
Subjective Remarks Patient is awake and alert with 2 family members present Patient and family endorse very little PO intake x 1 week initially was constipated then took magnesium citrate OTC 04/03/17 since then has been having diarrhea which is now green in color Objective Vitals Vital Signs Date Time Temp Pulse Resp B/P (MAP) Pulse Ox O2 Delivery O2 Flow Rate FiO2 04/09/17 12:00 95.4 77 17 98/53 (68) 95 04/09/17 11:43 95 21 04/09/17 08:00 95.6 87 17 100/50 (67) 95 04/09/17 04:00 96.6 17 17 95/55 (68) 98 04/09/17 03:44 91 04/09/17 00:00 97.2 92 17 105/53 (70) 94 04/08/17 23:00 95 16 98/53 (68) 95 04/08/17 22:18 92 18 97/54 (68) 98 Room Air 04/08/17 19:46 99 16 133/55 (81) 95 Room Air Result Diagram: 04/09/17 1003 04/09/17 1208 Other Results Laboratory Tests Test 04/08/17 18:50 04/08/17 20:25 04/09/17 10:03 04/09/17 12:08 White Blood Count 9.7 TH/MM3 8.5 TH/MM3 Red Blood Count 3.74 MIL/MM3 4.00 MIL/MM3 Hemoglobin 9.6 GM/DL 10.3 GM/DL Hematocrit 29.9 % 32.7 % Mean Corpuscular Volume 79.9 FL 81.9 FL Mean Corpuscular Hemoglobin 25.8 PG 25.7 PG Mean Corpuscular Hemoglobin Concent 32.2 % 31.4 % Red Cell Distribution Width 20.6 % 20.9 % Platelet Count 329 TH/MM3 267 TH/MM3 Mean Platelet Volume 7.9 FL 7.7 FL Neutrophils (%) (Auto) 72.3 % 68.4 % Lymphocytes (%) (Auto) 19.0 % 22.7 % Monocytes (%) (Auto) 7.1 % 6.6 % Eosinophils (%) (Auto) 1.0 % 1.8 % Basophils (%) (Auto) 0.6 % 0.5 % Neutrophils # (Auto) 7.0 TH/MM3 5.8 TH/MM3 Lymphocytes # (Auto) 1.8 TH/MM3 1.9 TH/MM3 Monocytes # (Auto) 0.7 TH/MM3 0.6 TH/MM3 Eosinophils # (Auto) 0.1 TH/MM3 0.1 TH/MM3 Basophils # (Auto) 0.1 TH/MM3 0.0 TH/MM3 CBC Comment DIFF FINAL DIFF FINAL Differential Comment Blood Urea Nitrogen 91 MG/DL 91 MG/DL Creatinine 6.36 MG/DL 6.05 MG/DL Random Glucose 62 MG/DL 80 MG/DL Total Protein 8.4 GM/DL Albumin 2.3 GM/DL Calcium Level 10.2 MG/DL 9.9 MG/DL Alkaline Phosphatase 103 U/L Aspartate Amino Transf (AST/SGOT) 15 U/L Alanine Aminotransferase (ALT/SGPT) 11 U/L Total Bilirubin 0.6 MG/DL Sodium Level 131 MEQ/L 134 MEQ/L Potassium Level 6.1 MEQ/L 6.0 MEQ/L Chloride Level 97 MEQ/L 100 MEQ/L Carbon Dioxide Level 23.9 MEQ/L 24.8 MEQ/L Anion Gap 10 MEQ/L 9 MEQ/L Estimat Glomerular Filtration Rate 8 ML/MIN 8 ML/MIN B-Type Natriuretic Peptide 27 PG/ML Urine Color YELLOW Urine Turbidity HAZY Urine pH 5.0 Urine Specific [place] 1.017 Urine Protein 30 mg/dL Urine Glucose (UA) NEG mg/dL Urine Ketones NEG mg/dL Urine Occult Blood NEG Urine Nitrite NEG Urine Bilirubin NEG Urine Urobilinogen 2.0 MG/DL Urine Leukocyte Esterase TRACE Urine WBC LESS THAN 1 /hpf Urine Squamous Epithelial Cells 9 /hpf Urine Amorphous Sediment RARE Urine Bacteria OCC /hpf Urine Hyaline Casts 20 /lpf Urine Mucus FEW /lpf Microscopic Urinalysis Comment CULT NOT INDICATED Magnesium Level 3.3 MG/DL Imaging Last 24 hours Impressions Chest X-Ray 04/08/17 0000 Signed Impressions: Service Date/Time: Saturday, April 08, 2017 17:26 - CONCLUSION: No acute disease. Chico Saldana MD Objective Remarks GENERAL: This is an obese, well-developed patient, in no apparent distress. SKIN: sacral ulcer dressing per wound care present dry and intact CARDIOVASCULAR: Regular rate and rhythm RESPIRATORY: Clear to auscultation. Breath sounds equal bilaterally. GASTROINTESTINAL: Abdomen soft, non-tender, nondistended. No hepato-splenomegaly , or palpable masses. No guarding. MUSCULOSKELETAL: Extremities without clubbing, cyanosis, or edema. No joint tenderness, effusion, or edema noted. No calf tenderness. Negative Homans sign bilaterally. NEUROLOGICAL: Awake and alert. No focal deficit noted. Motor and sensory grossly within normal limits. 3 out of 5 muscle strength in all muscle groups. Normal speech. A/P Problem List: (1) Acute renal failure ICD Codes: N17.9 - Acute kidney failure, unspecified Plan: - in the record stated had ckd stage4 but in february cr was about 1.3 - Continue IV hydration at 75 cc hr ns as BP was a little low - consult renal may need dialysis if labs do not improve - renal US pending - recheck BMP in AM Discussed code status with patient and family. Patient does not want to be intubated. 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 Barrett with wound care who has ordered dressing changes, santyl and Dakins - Will consult palliative care for assistance in establishing goals of care DVT prophylaxis with Heparin SQ (6) Appetite loss ICD Codes: R63.0 - Anorexia Plan: continue Remeron change diet to regular diet (7) Diarrhea ICD Codes: R19.7 - Diarrhea, unspecified Plan: initially was constipated then took magnesium citrate OTC 04/03/17 since then has been having diarrhea which is now green in color stool studies ordered Assessment and Plan Patient examined. Assessment and plan formulated with Sandy Vyas PA-C. I agree with the above. Problem Qualifiers (1) Sacral ulcer: Qualified Codes: L98.429 - Non-pressure chronic ulcer of back with unspecified severity Sandy Vyas Apr 09, 2017 16:12 Uday Palacio DO Apr 11, 2017 13:36
--- NOTE | 2017-04-09 16:46 | HHI.HCPN ---
Palliative care consulted to assist with goals of care. Attempted to contact patient's daughter to set up a family meeting for tomorrow, Monday 04/09. Unable to reach, left message requesting call back. Spoke with nurse, daughter at bedside. Arranged family meeting for 11am, Monday 04/09. Estrellita Lee TRANSMISSION REPAIRER, [employer]OD WELDER Apr 09, 2017 16:46
[2017-04-09] MEDS ORDERED: PATIROMER CALCIUM SORBITEX 8.4 GM PKT PO ONE (17:00)
--- NOTE | 2017-04-09 17:17 | PD.WCN.NOT ---
Wound Consult Description: Received consult from Doctor Rosas for wound management of sacral area. Communicated with: GIOVANNI Valentine and wound care orders written by Doctor Lincoln Recommendation: Please follow orders as written by Doctor Lincoln for wound care. turn patient every 2 hours and PRN for comfort and offloading of pressure from bob prominences. Additional Information: Patient seen on for evaluation of wound management of sacral area. 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 Wound presents with ~60% moist yellow adherent slough and ~40 % red tissue. Bone is palpated in wound bed but not visible.Wound measures 3.2cm x 2cm x1.5cm. Undermining is present from 1 to 4 o'clock and is 1.5cm at the deepest. Wound drainage is scant and sero-sanguinous without odor. Periwound presents with small area of partial thickness skin loss that is moisture related.L buttock presents with scattered diffuse small areas of partial thickness skin loss that appear to be moisture and friction related. R posterior Thigh is noted with wound that appears to be related to shearing and measures ~1cm x~6cm x ~0.2cm. .Wound is clean and shallow full thickness with ~20% adipose tissue visible in wound bed. ~80% red non granulation tissue that is also present.No active drainage or odor is noted. R lateral thigh wound presents with 100% red non granulation tissue. No odor or active drainage is seen from wound Cleansed wound to coccyx with normal saline and pat dry. Applied saline moistened 2x2 gauze pad packed in wound bed and covered with ABD pad that was secured with paper tape.Skin prep was applied to periwound before covering wound with dressing. Optifoam basic was applied to R lateral thigh secured with paper tape. Allevyn gentle border foam was applied to R posterior thigh . Patient was positioned to L side and bed was lowered to safe height before leaving patient's room. Giuliana Walls [facility] Apr 09, 2017 17:16
--- NOTE | 2017-04-09 17:27 | PD.CONS ---
HPI Service Nephrology Consult Requested By Dr. Jackson Reason for Consult NARGIS Primary Care Physician Ron Bee D.O. History of Present Illness The patient is a 81 yo AA female who presented to this facility 04/08 with complaints of worsening fatigue leg weakness and leg pain. Has has numerous admissions in the past few months for dehydration. Her daughter and grand- daughter is present in the room. States in the past 3 weeks she has had poor appetite and has relied on appetite stimulants in the past. Was having some constipation about 1 week ago so she took magnesium citrate; since then has been having diarrhea. In ED, her BP was low and was given NS bolus of 500mL. Has been on NS at 75 since last evening. Has known CKD and has been told stage 3-4 in the past. Appears her baseline SCr is 1.8-2.2 range. Admitting SCr 6.36 that improved to 6.05 at consult. Is on Aldactone/HCTZ 25/25 QD at home as well as Lisinopril 10mg QD. Says she has been on this for some time. Mention of CHF in the chart, but the patient and family denies. Grand-daughter reports that she has had LE edema in the past, but none as of recent. Denies any SOB or CP. Daughter says that she has Aleve at home, but then soon redacts this after grand-daughter questions her. No recent antibiotics at home, but is under the care of [facility] for sacral wound. Denies any NV. No obstructive uropathy as hx. Is a diabetic with hypertension. (Indy Mendoza) Review of Systems Constitutional: COMPLAINS OF: Fatigue, Change in appetite Gastrointestinal: COMPLAINS OF: Diarrhea Musculoskeletal: COMPLAINS OF: Muscle aches Neurologic: COMPLAINS OF: Poor Balance (Indy Mendoza) Past Family Social History Allergies: Coded Allergies: shellfish derived (Unverified Allergy, Severe, SWELLING, DYSPNEA, 04/08/17) Past Medical History CKD stage 4 per hx HTN DM HLD Sacral Wound Anorexia Past Surgical History BTL Uterine Artery Ablation Reported Medications Mupirocin Topical (Mupirocin) 2 % Oint 1 Applic TOPICAL BID 10 Days apply to buttock wound BID for 10 days Mirtazapine 15 Mg Tab 30 Mg PO HS Spironolactone-Hydrochlorothiazide 25-25 Mg Tab 1 Tab PO DAILY Nystatin Topical (Nystatin) 100,000 unit/gm Cream 1 Application TOPICAL TID Amitriptyline (Amitriptyline HCl) 50 Mg Tab 50 Mg PO HS Tramadol (Tramadol HCl) 50 Mg Tab 50 Mg PO BID PRN Glimepiride 1 Mg Tab 1 Mg PO BID Take with breakfast or first main meal Fish Oil ([place]-3 Fatty Acids) 1,000 Mg Cap 1,000 Mg PO DAILY Zetia (Ezetimibe) 10 Mg Tab 10 Mg PO DAILY Lisinopril 10 Mg Tab 10 Mg PO DAILY Active Ordered Medications Current Medications Medications (Trade) Dose Ordered Sig/Daniella Route Start Time Stop Time Status Last Admin (Zetia) 10 mg DAILY PO 04/09/17 09:00 04/09/17 08:37 (Remeron) 30 mg HS PO 04/09/17 21:00 (Ultram) 50 mg BID PRN PO 04/08/17 22:00 (NS Flush) 2 ml UNSCH PRN IV FLUSH 04/08/17 22:00 (NS Flush) 2 ml BID IV FLUSH 04/09/17 09:00 (Zofran Inj) 4 mg Q6H PRN IVP 04/08/17 22:00 (Narcan Inj) 0.4 mg UNSCH PRN IV PUSH 04/08/17 22:00 ([place]-Colace) 1 tab BID PO 04/09/17 09:00 04/09/17 08:37 (Milk Of Magnesia Liq) 30 ml Q12H PRN PO 04/08/17 22:00 (Senokot) 17.2 mg Q12H PRN PO 04/08/17 22:00 (Dulcolax Supp) 10 mg DAILY PRN RECTAL 04/08/17 22:00 (Lactulose Liq) 30 ml DAILY PRN PO 04/08/17 22:00 (NovoLOG SUPPLEMENTAL SCALE) 1 ACHS SLIDING SCALE SQ 04/09/17 08:00 (Amaryl) 1 mg BID PO 04/09/17 09:00 Future Hold (Elavil) 50 mg HS PO 04/09/17 21:00 Dextrose/Sodium Chloride 1,000 ml @ 75 mls/hr [id number] IV 04/09/17 08:45 04/09/17 08:51 (Morphine Inj) 2 mg Q8H PRN IV PUSH 04/09/17 10:15 (Dakin'S 0.125% Soln) 1 ml DAILY PRN TOPICAL 04/09/17 15:45 (Santyl Oint) 1 applic DAILY PRN TOPICAL 04/09/17 15:45 (Heparin Inj) 5,000 units Q12HR SQ 04/10/17 09:00 Family History NC Social History Lives locally Denies tobacco, EtOH, illicits (Indy Mendoza) Physical Exam Vital Signs Vital Signs Date Time Temp Pulse Resp B/P (MAP) Pulse Ox O2 Delivery O2 Flow Rate FiO2 04/09/17 16:00 95.9 82 17 106/53 (70) 98 04/09/17 12:00 95.4 77 17 98/53 (68) 95 04/09/17 11:43 95 21 04/09/17 08:00 95.6 87 17 100/50 (67) 95 04/09/17 04:00 96.6 17 17 95/55 (68) 98 04/09/17 03:44 91 04/09/17 00:00 97.2 92 17 105/53 (70) 94 04/08/17 23:00 95 16 98/53 (68) 95 04/08/17 22:18 92 18 97/54 (68) 98 Room Air 04/08/17 19:46 99 16 133/55 (81) 95 Room Air Physical Exam GENERAL: Elderly, obese. Laying in bed in NAD. On RA. SKIN: Warm and dry. HEAD: Atraumatic. Normocephalic. EYES: Pupils equal and round. No scleral icterus. No injection or drainage. ENT: No nasal bleeding or discharge. Mucous membranes pink and moist. NECK: Trachea midline. No JVD. CARDIOVASCULAR: Regular rate and rhythm. RESPIRATORY: No accessory muscle use. Clear to auscultation. Breath sounds equal bilaterally. GASTROINTESTINAL: Abdomen soft, non-tender, nondistended. Hepatic and splenic margins not palpable. MUSCULOSKELETAL: Extremities without clubbing, cyanosis, or edema. No obvious deformities. NEUROLOGICAL: Awake and alert. Normal speech. PSYCHIATRIC: Appropriate mood and affect; insight and judgment normal. Laboratory Laboratory Tests Test 04/08/17 18:50 04/08/17 20:25 04/09/17 10:03 04/09/17 12:08 White Blood Count 9.7 8.5 Red Blood Count 3.74 4.00 Hemoglobin 9.6 10.3 Hematocrit 29.9 32.7 Mean Corpuscular Volume 79.9 81.9 Mean Corpuscular Hemoglobin 25.8 25.7 Mean Corpuscular Hemoglobin Concent 32.2 31.4 Red Cell Distribution Width 20.6 20.9 Platelet Count 329 267 Mean Platelet Volume 7.9 7.7 Neutrophils (%) (Auto) 72.3 68.4 Lymphocytes (%) (Auto) 19.0 22.7 Monocytes (%) (Auto) 7.1 6.6 Eosinophils (%) (Auto) 1.0 1.8 Basophils (%) (Auto) 0.6 0.5 Neutrophils # (Auto) 7.0 5.8 Lymphocytes # (Auto) 1.8 1.9 Monocytes # (Auto) 0.7 0.6 Eosinophils # (Auto) 0.1 0.1 Basophils # (Auto) 0.1 0.0 CBC Comment DIFF FINAL DIFF FINAL Differential Comment Blood Urea Nitrogen 91 91 Creatinine 6.36 6.05 Random Glucose 62 80 Total Protein 8.4 Albumin 2.3 Calcium Level 10.2 9.9 Alkaline Phosphatase 103 Aspartate Amino Transf (AST/SGOT) 15 Alanine Aminotransferase (ALT/SGPT) 11 Total Bilirubin 0.6 Sodium Level 131 134 Potassium Level 6.1 6.0 Chloride Level 97 100 Carbon Dioxide Level 23.9 24.8 Anion Gap 10 9 Estimat Glomerular Filtration Rate 8 8 B-Type Natriuretic Peptide 27 Urine Color YELLOW Urine Turbidity HAZY Urine pH 5.0 Urine Specific [place] 1.017 Urine Protein 30 Urine Glucose (UA) NEG Urine Ketones NEG Urine Occult Blood NEG Urine Nitrite NEG Urine Bilirubin NEG Urine Urobilinogen 2.0 Urine Leukocyte Esterase TRACE Urine WBC LESS THAN 1 Urine Squamous Epithelial Cells 9 Urine Amorphous Sediment RARE Urine Bacteria OCC Urine Hyaline Casts 20 Urine Mucus FEW Microscopic Urinalysis Comment CULT NOT INDICATED Magnesium Level 3.3 Date/Time Source Procedure Growth Status 04/08/17 20:15 Wound Buttock Gram Stain - Final Resulted 04/08/17 20:15 Wound Buttock Wound Culture - Preliminary Resulted (Indy Mendoza) Result Diagram: 04/09/17 1003 04/09/17 1208 Imaging Last Impressions Abdomen/Pelvis CT 04/09/17 0600 Signed Impressions: Service Date/Time: April 01:23 - CONCLUSION: 1. No evidence of primary tumor or metastatic disease on this noncontrast exam. 2. Multiple low attenuation lesions in the liver which likely represent cysts or cavernous hemangiomas. 3. Small amount of pericardial fluid. 4. Small amount of pericardial fluid. Next number prominent uterus with calcified leiomyomata. Devon Marks MD Chest X-Ray 04/08/17 0000 Signed Impressions: Service Date/Time: Saturday, April 08, 2017 17:26 - CONCLUSION: No acute disease. Chico Saldana MD (Indy Mendoza) Assessment and Plan Problem List: (1) Acute renal failure superimposed on stage 4 chronic kidney disease ICD Codes: N17.9 - Acute kidney failure, unspecified; N18.4 - Chronic kidney disease, stage 4 (severe) Status: Acute Plan: Acute renal failure appears to be related to intravascular volume depletion in setting of poor oral intake and diarrhea. Has been on Lisinopril as well as Aldactone/HCTZ at home that is likely contributing as well. All BP meds have been held given her hypotension. Has been in IVF--continue but increase rate to 90mL/hr Potassium elevated today. Veltassa not available as per pharmacy. Will give dose of Kionex tonight with albuterol treatment. Low potassium diet ordered. Monitor I&Os. CT scan reviewed and showed no obstructive process. Hopefully renal functions will continue to improve and an ATN has not occurred. (2) Hyponatremia ICD Codes: E87.1 - Hypo-osmolality and hyponatremia Plan: Appears to be chronic Likely related to nutritional decline as well as thiazide diuretic. (3) DM2 (diabetes mellitus, type 2) ICD Codes: E11.9 - Type 2 diabetes mellitus without complications Status: Chronic Plan: Management as per primary (Indy Mendoza) Assessment and Plan The exam, history, and the medical decision-making described in the above note were completed with the assistance of the PA-C. I reviewed and agree with the findings presented. I attest that I had a [id number] encounter with the patient on the same day, and personally performed and documented my assessment and findings in the medical record. (Lobo Garcia MD) Indy Mendoza Apr 09, 2017 17:27 Lobo Garcia MD Apr 10, 2017 12:35
[2017-04-09] MEDS ORDERED: RESP: ALBUTEROL 2.5 MG/3 ML NEB (SCH) NEB ONE (18:15)
[2017-04-09] MEDS ORDERED: SODIUM POLYSTYRENE SULFONATE SUSP 15 GM/60 ML CUP PO ONE (18:15)
[2017-04-09] MEDS: MIRTAZAPINE 15 MG TAB PO SCH (20:14)
[2017-04-09] MEDS: AMITRIPTYLINE HCL 50 MG TAB PO SCH (20:14)
[2017-04-09 22:48] LABS: TRANSFERRIN IRON PROFILE 118 MG/DL (200-360)
--- NOTE | 2017-04-09 22:49 | RADRPT ---
EXAM DATE/TIME: 04/09/2017 21:10 [place] COMPARISON: No previous studies available for comparison. INDICATIONS : Increased BUN/Creatinine. MEDICAL HISTORY : Hypercholesterolemia. Hypertension. Congestive heart failure. Headache. Renal disease. Arthritis. Kamla betes. Blood transfusion. MRSA. SURGICAL HISTORY : Tubal ligation. Dilation and curettage. ENCOUNTER: Initial ACUITY: 1 day PAIN SCORE: 0/10 LOCATION: Bilateral flank MEASUREMENTS: RIGHT KIDNEY: 12.0 x 5.8 x 5.9 cm LEFT KIDNEY: 11.4 x 6.6 x 5.2 cm FINDINGS: The kidneys are increased in echogenicity suggesting medical renal disease. There are 2 cysts noted o n the right measuring 3.5 x 2.8 x 2.9 cm in the upper pole and 1.5 x 1.3 x 1.3 cm and lower pole. The re is one cyst on the left in the mid pole measuring 3.4 x 3.2 x 2.7 cm. No solid mass or hydronephro sis is noted on either side. No stone is noted. The urinary bladder is unremarkable. CONCLUSION: 1. Echogenic kidneys suggesting medical renal disease. 2. Multiple bilateral renal cysts. 3. Unremarkable urinary bladder. Chico Saldana MD on April 09, 2017 at 22:45 Board Certified Radiologist. This report was verified electronically.
[2017-04-09 22:50] LABS: FERRITIN 1245 NG/ML (8-252); TOTAL PROTEIN SPE 8.1 GM/DL (6.0-7.6)
[2017-04-10] VITALS (9 sets, daily range): BP systolic 91–107; BP diastolic 44–59; PULSE 67–101; RESP 17–20; TEMP 95.5–97.9; O2SAT 93–99
[2017-04-10] MEDS: DEXT 5%-NACL 0.9% 1000 ML INJ 1,000 ML IV SCH ×3 (07:32→19:10)
[2017-04-10] MEDS: INSULIN ASPART SUPPLEMENTAL SCALE SQ SCH ×4 (07:32→21:00)
[2017-04-10] MEDS: SODIUM CHLORIDE 0.9% FLUSH 10 ML FLUSH IV FLUSH SCH ×2 (07:32→21:00)
[2017-04-10] MEDS: EZETIMIBE 10 MG TAB PO SCH (08:22)
[2017-04-10] MEDS: HEPARIN SODIUM - SQ 10,000 UNITS/ML VIAL SQ SCH ×2 (08:22→21:00)
[2017-04-10] MEDS: DOCUSATE SODIUM 50 MG/SENNA 8.6 MG TAB PO SCH ×2 (08:22→21:00)
--- NOTE | 2017-04-10 10:01 | PD.CONS ---
Consult Service Palliative Care Consult Requested By Sandy Vyas PA Primary Care Physician Ron Bee D.O. Reason for Consultation a. To assist with evaluation and management of symptoms including: Pain, decreased oral intake, physical deconditioning b. To assist medical decision maker(s) with: better understanding of current medical conditions; weighing benefits/burdens of medical treatment options; making medical treatment decisions. HPI History of Present Illness Ms. Lin is a 81-year-old female with a past medical history of hypertension , congestive heart failure, diabetes mellitus, chronic sacral wound, uterine fibroids and chronic kidney disease stage IV. Patient`s last hospitalization was in January of this year. Patient is mostly wheelchair bound, minimally ambulates. Patient usually propels herself with her legs while on the wheelchair but has been bedbound for the last 3 weeks. She has had a sacral wound for almost a month and has home health care nurse comes in 3 times a week to tend to the wound. Patient presented to the ER on complaining of worsening of bilateral joint and leg pain, which started approximately 2 weeks ago. Patient had constipation a week ago and she took mag citrate and since then she had had intermittent diarrhea. Patient also endorsing nausea with decreased oral intake for the past week. ED course: * Vital signs: Temperature 97.9 degrees F, BP 82/48, RR 18, O2 saturation 100% on room air * Patient hypotensive -0.5L NS administered. * Laboratory workup revealing CBC 9.7, hemoglobin 9.6, hematocrit 29.9, platelet count 267, sodium 131, potassium 6.1, BUN/creatinine 91/6.36, total protein 8.4, albumin 2.3 * Chest x-ray revealed no acute disease. * Urinalysis: No culture indicated. * Sacral wound culture- preliminary results showing mixed enteric gram-negative rods with no predominant organism. * Patient was admitted for further evaluation. Nephrology consulted on 04/08/17 for evaluation and management of acute renal failure. Recommended starting patient on Kionex and increasing NS to 90ml/hr. Wound care Dr. Lincoln consulted for evaluation and management of sacral wound. Clinical course complicated with hyperkalemia, hypotension and hyponatremia. Patient indicated on 04/09/17 that she would want to be an alternate code- only wants CPR, ACLS medications, and shock if needed and no intubation. Palliative care consulted to assist with establishing goals of care. Patient seen and examined in her room. Patient is awake, alert and oriented to self, place and situation. Patient has a fair understanding of her medical condition. Patient is afebrile. HR 80s. SBP low 90s-low 100s. O2 saturation mid to high 90s on room air. No laboratory workup today or imaging today. Patient`s 3 out of 6 children and her niece present at bedside during meeting, son-Armando Lin, daughters Jaya Gonzalez, Ermelinda Tellez, and niece Maribel Ceballos. Obtained psychosocial history. Discussed events leading to the hospitalization as well as patient`s health status throughout the year including hospitalizations. Patient and family agreed that patient has been declining throughout the year though they think she was doing somewhat better at [facility] in rehabilitation after last hospitalization in . Family states that after she came back home she has been refusing to get out of bed. Addressed what patient would consider as quality of life and patient stated that if she gets to a point where she does not know who she is as well as know her family she would not want to live. Addressed code status, discussed risks, benefits and limitations of CPR given ongoing multiple comorbidities. Clarified further whether patient wanted to be an alternate code and further explained what that entails. Patient`s family emphasized that patient would not like that and said patient would like to with dignity. Patient said she would not want to be resuscitated or intubated. Her family supportive of her decision. Patient has a signed health care surrogate (HCS) and her health care surrogate is her daughter Alcon Tellez and alternate HCS is her niece Maribel Ceballos. Patient and family indicate from our conversation that they would like to pursue aggressive treatment even if it means patient may need hemodialysis in the future short of no code. Function/Cognitive Trajectory Patient lives at home with her son and daughter. Patient used to use a wheelchair sparingly for long distances 3 months ago prior to last hospitalization in January. Per family patient had slightly improved while in rehabilitation at [facility] but since her discharge from [facility] until now patient has been bedbound and refusing to get out of bed and requiring total assistance with bathing, and some assistance with repositioning. Patient has also been intermittently incontinent of bowel and has had chronic bladder incontinence. Patient requires some assistance with dressing . Patient is able to feed herself though family states that she has had poor oral intake. Patient is oriented to person, place and situation. . Review of Systems Constitutional: COMPLAINS OF: Fatigue, Weight loss, Change in appetite, Pain, Generalized weakness, DENIES: Fever, Chills Eyes: DENIES: Eye inflammation Ears, nose, mouth, throat: DENIES: Nasal discharge Respiratory: DENIES: Cough, Shortness of breath Cardiovascular: COMPLAINS OF: Lower Extremity Edema Gastrointestinal: COMPLAINS OF: Constipation, Diarrhea, Nausea Genitourinary: COMPLAINS OF: Urinary incontinence Musculoskeletal: COMPLAINS OF: Joint pain, Muscle aches, Decreased range of motion Integumentary: COMPLAINS OF: Non-healing sores (chronic sacral wound) Hematologic/Lymphatics: COMPLAINS OF: Bruising, History of transfusions Psychiatric: DENIES: Confusion, Hallucinations, Agitation Past Family Social History Coded Allergies: shellfish derived (Unverified Allergy, Severe, SWELLING, DYSPNEA, 04/08/17) Past Medical History CHF Hypertension Diabetes mellitus Hyperlipidemia CKD stage 3-4 per history Sacral wound Uterine fibroids and bleeding Chronic bilateral lower extremity edema . Past Surgical History Tubal ligation Embolization of uterine fibroid artery Bilateral cataract surgery, 2007 . Reported Medications Mupirocin Topical (Mupirocin) 2 % Oint 1 Applic TOPICAL BID 10 Days Mirtazapine 15 Mg Tab 30 Mg PO HS Spironolactone-Hydrochlorothiazide 25-25 Mg Tab 1 Tab PO DAILY Nystatin Topical (Nystatin) 100,000 unit/gm Cream 1 Applic TOPICAL TID Amitriptyline (Amitriptyline HCl) 50 Mg Tab 50 Mg PO HS Tramadol (Tramadol HCl) 50 Mg Tab 50 Mg PO BID PRN Glimepiride 1 Mg Tab 1 Mg PO BID Fish Oil (Ashkum-3 Fatty Acids) 1,000 Mg Cap 1,000 Mg PO DAILY Zetia (Ezetimibe) 10 Mg Tab 10 Mg PO DAILY Lisinopril 10 Mg Tab 10 Mg PO DAILY . Current Medications Medications (Trade) Dose Ordered Sig/Daniella Route Start Time Stop Time Status Last Admin (Zetia) 10 mg DAILY PO 04/09/17 09:00 04/10/17 08:22 (Remeron) 30 mg HS PO 04/09/17 21:00 04/09/17 20:14 (Ultram) 50 mg BID PRN PO 04/08/17 22:00 (NS Flush) 2 ml UNSCH PRN IV FLUSH 04/08/17 22:00 (NS Flush) 2 ml BID IV FLUSH 04/09/17 09:00 04/09/17 20:14 (Zofran Inj) 4 mg Q6H PRN IVP 04/08/17 22:00 (Narcan Inj) 0.4 mg UNSCH PRN IV PUSH 04/08/17 22:00 ([place]-Colace) 1 tab BID PO 04/09/17 09:00 04/10/17 08:22 (Senokot) 17.2 mg Q12H PRN PO 04/08/17 22:00 (Dulcolax Supp) 10 mg DAILY PRN RECTAL 04/08/17 22:00 (Lactulose Liq) 30 ml DAILY PRN PO 04/08/17 22:00 (NovoLOG SUPPLEMENTAL SCALE) 1 ACHS SLIDING SCALE SQ 04/09/17 08:00 (Amaryl) 1 mg BID PO 04/09/17 09:00 Future Hold (Elavil) 50 mg HS PO 04/09/17 21:00 04/09/17 20:14 Dextrose/Sodium Chloride 1,000 ml @ 90 mls/hr Q11H7M IV 04/09/17 08:45 04/09/17 08:51 (Morphine Inj) 2 mg Q8H PRN IV PUSH 04/09/17 10:15 (Dakin'S 0.125% Soln) 1 ml DAILY PRN TOPICAL 04/09/17 15:45 (Santyl Oint) 1 applic DAILY PRN TOPICAL 04/09/17 15:45 (Heparin Inj) 5,000 units Q12HR SQ 04/10/17 09:00 04/10/17 08:22 Family History Mother- at age 85 of cardiac complications- had DM Sister living with no medical problems Brother- living and he has diabetes mellitus . Substance Use Tobacco:Denies Alcohol:occasional beer weekend Prescription med abuse:Denies Illicits:Denies . Psychosocial History Patient was born and raised in [place], [place]. Patient was once and her in 1977. Patient has 6 adult children, 2 sons and 4 daughters. 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 . Spiritual/Cultural Factors Patient is Yazdanism. . Living Will: Never completed Health Care Surrogate: Copy in medical record Durable Power of Model Engine Mechanic: Never completed Date completed: March 02, 2017 . Health Care Surrogate(s): Daughter-[facility]- Rosalinda Wadsworth- [phone] [place]- Alternate [facility]-Tucker López-[phone] Documented care wishes: Specific instructions on [facility] form: DO NOT RESUSCITATE . Today's verbally stated goals: Aggressive treatment short of no code. . Family/friends goals: Aggressive treatment short of no code. . Ethical and Legal Issues None identified at this time. . Physical Exam Vital Signs Date Time Temp Pulse Resp B/P (MAP) Pulse Ox O2 Delivery O2 Flow Rate FiO2 04/10/17 08:00 96.0 83 17 107/59 (75) 95 04/10/17 06:41 96.4 89 18 91/50 (64) 99 04/10/17 05:02 86 04/10/17 01:38 97.9 87 18 98/54 (69) 99 04/09/17 23:16 82 04/09/17 20:00 95.9 97 18 97/51 (66) 04/09/17 16:00 95.9 82 17 106/53 (70) 98 04/09/17 12:00 95.4 77 17 98/53 (68) 95 04/09/17 11:43 95 21 Exam CONSTITUTIONAL/GENERAL: This is an elderly, chronically ill patient, in no apparent distress. TUBES/LINES/DRAINS: PIV SKIN: Discoloration to BLE. Ecchymoses on upper extremities. No wounds seen anteriorly. Skin temperature appropriate. Not diaphoretic. HEAD: Atraumatic. Normocephalic. EYES: Pupils equal and round and reactive. Extraocular motions intact. No scleral icterus. No injection or drainage. Fundi not examined. ENT: Hearing grossly normal. Nose without bleeding or purulent drainage. NECK: Trachea midline. Supple, nontender. CARDIOVASCULAR: Regular rate and rhythm without murmurs, gallops, or rubs. No JVD. Peripheral pulses symmetric. RESPIRATORY/CHEST: Symmetric, unlabored respirations. Clear to auscultation. Breath sounds equal bilaterally. No wheezes, rales, or rhonchi. GASTROINTESTINAL: Abdomen soft, non-tender, nondistended. No guarding. Bowel sounds present. GENITOURINARY: Without palpable bladder distension. Mcrae catheter in place. MUSCULOSKELETAL: Extremities without clubbing, cyanosis, or edema. No joint tenderness or effusion noted. No calf tenderness. No mottling or clubbing. NEUROLOGICAL: Awake and alert and oriented to person, place and situation. Motor and sensory grossly within normal limits. Follows commands. Cognitively sharp. Moves all extremities. PSYCHIATRIC: No obvious anxiety/depression. no apparent hallucinations or other psychotic thought process. . Diagnostic Tests Laboratory Laboratory Tests Test 04/08/17 18:50 04/08/17 20:25 04/09/17 10:03 04/09/17 12:08 White Blood Count 9.7 TH/MM3 (4.0-11.0) 8.5 TH/MM3 (4.0-11.0) Red Blood Count 3.74 MIL/MM3 (4.00-5.30) 4.00 MIL/MM3 (4.00-5.30) Hemoglobin 9.6 GM/DL (11.6-15.3) 10.3 GM/DL (11.6-15.3) Hematocrit 29.9 % (35.0-46.0) 32.7 % (35.0-46.0) Mean Corpuscular Volume 79.9 FL (80.0-100.0) 81.9 FL (80.0-100.0) Mean Corpuscular Hemoglobin 25.8 PG (27.0-34.0) 25.7 PG (27.0-34.0) Mean Corpuscular Hemoglobin Concent 32.2 % (32.0-36.0) 31.4 % (32.0-36.0) Red Cell Distribution Width 20.6 % (11.6-17.2) 20.9 % (11.6-17.2) Platelet Count 329 TH/MM3 (150-450) 267 TH/MM3 (150-450) Mean Platelet Volume 7.9 FL (7.0-11.0) 7.7 FL (7.0-11.0) Neutrophils (%) (Auto) 72.3 % (16.0-70.0) 68.4 % (16.0-70.0) Lymphocytes (%) (Auto) 19.0 % (9.0-44.0) 22.7 % (9.0-44.0) Monocytes (%) (Auto) 7.1 % (0.0-8.0) 6.6 % (0.0-8.0) Eosinophils (%) (Auto) 1.0 % (0.0-4.0) 1.8 % (0.0-4.0) Basophils (%) (Auto) 0.6 % (0.0-2.0) 0.5 % (0.0-2.0) Neutrophils # (Auto) 7.0 TH/MM3 (1.8-7.7) 5.8 TH/MM3 (1.8-7.7) Lymphocytes # (Auto) 1.8 TH/MM3 (1.0-4.8) 1.9 TH/MM3 (1.0-4.8) Monocytes # (Auto) 0.7 TH/MM3 (0-0.9) 0.6 TH/MM3 (0-0.9) Eosinophils # (Auto) 0.1 TH/MM3 (0-0.4) 0.1 TH/MM3 (0-0.4) Basophils # (Auto) 0.1 TH/MM3 (0-0.2) 0.0 TH/MM3 (0-0.2) CBC Comment DIFF FINAL DIFF FINAL Differential Comment Blood Urea Nitrogen 91 MG/DL (7-18) 91 MG/DL (7-18) Creatinine 6.36 MG/DL (0.50-1.00) 6.05 MG/DL (0.50-1.00) Random Glucose 62 MG/DL (74-106) 80 MG/DL (74-106) Total Protein 8.4 GM/DL (6.4-8.2) 8.1 GM/DL (6.0-7.6) Albumin 2.3 GM/DL (3.4-5.0) Calcium Level 10.2 MG/DL (8.5-10.1) 9.9 MG/DL (8.5-10.1) Alkaline Phosphatase 103 U/L (45-117) Aspartate Amino Transf (AST/SGOT) 15 U/L (15-37) Alanine Aminotransferase (ALT/SGPT) 11 U/L (10-53) Total Bilirubin 0.6 MG/DL (0.2-1.0) Sodium Level 131 MEQ/L (136-145) 134 MEQ/L (136-145) Potassium Level 6.1 MEQ/L (3.5-5.1) 6.0 MEQ/L (3.5-5.1) Chloride Level 97 MEQ/L (98-107) 100 MEQ/L (98-107) Carbon Dioxide Level 23.9 MEQ/L (21.0-32.0) 24.8 MEQ/L (21.0-32.0) Anion Gap 10 MEQ/L (5-15) 9 MEQ/L (5-15) Estimat Glomerular Filtration Rate 8 ML/MIN (>89) 8 ML/MIN (>89) B-Type Natriuretic Peptide 27 PG/ML (0-100) Urine Color YELLOW (YELLW/STRAW) Urine Turbidity HAZY (CLEAR) Urine pH 5.0 (5.0-8.5) Urine Specific [place] 1.017 (1.002-1.035) Urine Protein 30 mg/dL (NEG-TRACE) Urine Glucose (UA) NEG mg/dL (NEG) Urine Ketones NEG mg/dL (NEG) Urine Occult Blood NEG (NEG) Urine Nitrite NEG (NEG) Urine Bilirubin NEG (NEG) Urine Urobilinogen 2.0 MG/DL (LESS THAN Urine Leukocyte Esterase TRACE (NEG) Urine WBC LESS THAN 1 /hpf (0-5) Urine Squamous Epithelial Cells 9 /hpf (0-5) Urine Amorphous Sediment RARE Urine Bacteria OCC /hpf (NONE) Urine Hyaline Casts 20 /lpf (RARE) Urine Mucus FEW /lpf (OCC) Microscopic Urinalysis Comment CULT NOT INDICATED Magnesium Level 3.3 MG/DL (1.5-2.5) Phosphorus Level 4.6 MG/DL (2.5-4.9) Iron Level 46 MCG/DL (50-170) Total Iron Binding Capacity 165 MCG/DL (250-450) Percent Iron Saturation 27.8 % (20-50) Ferritin 1245 NG/ML (8-252) Result Diagram: 04/09/17 1003 04/09/17 1208 Microbiology Microbiology Date/Time Source Procedure Growth Status 04/08/17 20:15 Wound Buttock Gram Stain - Final Resulted 04/08/17 20:15 Wound Buttock Wound Culture - Preliminary Resulted Imaging Last Impressions Abdomen/Pelvis CT 04/09/17 0600 Signed Impressions: Service Date/Time: April 01:23 - CONCLUSION: 1. No evidence of primary tumor or metastatic disease on this noncontrast exam. 2. Multiple low attenuation lesions in the liver which likely represent cysts or cavernous hemangiomas. 3. Small amount of pericardial fluid. 4. Small amount of pericardial fluid. Next number prominent uterus with calcified leiomyomata. Devon Marks MD Renal Ultrasound 04/09/17 0000 Signed Impressions: Service Date/Time: April 21:10 - CONCLUSION: 1. Echogenic kidneys suggesting medical renal disease. 2. Multiple bilateral renal cysts. 3. Unremarkable urinary bladder. Chico Saldana MD Chest X-Ray 04/08/17 0000 Signed Impressions: Service Date/Time: Saturday, April 08, 2017 17:26 - CONCLUSION: No acute disease. [place]ico Saldana MD Patient/Family Conference Family Conference Location: Bedside Issues Discussed: * Palliative care role, purpose, approach * Additional medical, psychosocial, and spiritual history * Patients general health, functional status, and cognitive changes in the months leading up to the current hospitalization * Patient/family understanding of the current medical problems-Dehydration, Acute on chronic KD, Hyponatremia, CHF, DM * Patient/family understanding of prognosis * Patients goals of care as best understood from advance directives and/or conversations and/or values * Current medical treatment options and benefits/burdens of those options * Likely scenarios comparing ongoing aggressive care with a transition to comfort measures only * Questions answered to the best of my ability * Palliative care contact information provided Assessment and Plan Disease Oriented Problem List: (1) Acute renal failure superimposed on stage 4 chronic kidney disease (2) Hyponatremia (3) Dehydration (4) DM2 (diabetes mellitus, type 2) (5) HTN (hypertension) (6) Sacral ulcer Symptom Scale: (1) Pain 0-10 Scale: Unable to quantify Comment: Multifactorial. Patient has history of arthritis. Patient has a chronic sacral wound. Endorsing pain to bilateral lower extremities. . (2) Decreased oral intake 0-10 Scale: Unable to quantify Comment: Continues to have decreased appetite. Weight on 05/31/16=134kg; = 98.4kg. 04/08/17 . (3) Physical deconditioning 0-10 Scale: Unable to quantify Comment: Progressive. . Pertinent Non-Medical Issues Psychosocial:Patient was born and raised in [place], [place]. Patient was once and her in 1977. Patient has 6 adult children, 2 sons and 4 daughters. 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 Spiritual: Yazdanism Legal:Has a HCS, signed Community DNR today Ethical issues impacting care: None identified at this time. Important Contacts Daughter-HCS- Rosalinda Wadsworth- [phone] (Works at [employer] [id number]) Nierce- Alternate HCS-Tucker López-[phone] Son-Armando Lin- [phone] DaughterNory GonzalezDckbvtw-[phone] Daughter-Manjit Lin- [phone] Daughter Cal NelsonEjhbr-[phone] Prognosis Ms. Lin is a 81-year-old female with a past medical history of hypertension , congestive heart failure, diabetes mellitus, chronic sacral wound, uterine fibroids and chronic kidney disease stage IV. Patient`s last hospitalization was in January of this year. Patient presented to the ER on complaining of worsening of bilateral joint and leg pain, which started approximately 2 weeks ago. Patient had constipation a week ago and she took mag citrate and since then she had had intermittent diarrhea. Patient also endorsing nausea with decreased oral intake for the past week. Clinical course complicated with hyperkalemia, hypotension and hyponatremia. Given ongoing comorbidities, patient remains at great risk for for further complications, deterioration and decline. . Code Status: No Code Plan PLAN: Legal decision maker: Patient demonstrates ability to make her own medical decisions. In the event that patient is incapacitated patient has designated her daughter Alcon Tellez as her health care surrogate and alternate HCS is her niece Maribel Ceballos Goals: Aggressive short of no code. Patient signed community DNR today. Patient`s 3 out of 6 children and her niece present at bedside during meeting, sonTyrone Lin, daughters Jaya Gonzalez, Ermelinda Tellez, and niece Maribel Ceballos. Obtained psychosocial history. Discussed events leading to the hospitalization as well as patient`s health status throughout the year including hospitalizations. Patient and family agreed that patient has been declining throughout the year though they think she was doing somewhat better at [facility] in rehabilitation after last hospitalization in . Family states that after she came back home she has been refusing to get out of bed. Addressed what patient would consider as quality of life and patient stated that if she gets to a point where she does not know who she is as well as know her family she would not want to live. Addressed code status, discussed risks, benefits and limitations of CPR given ongoing multiple comorbidities. Clarified further whether patient wanted to be an alternate code and further explained what that entails. Patient`s family emphasized that patient would not like that and said patient would like to with dignity. Patient said she would not want to be resuscitated or intubated. Her family supportive of her decision. Patient has a signed health care surrogate (HCS) and her health care surrogate is her daughter Alcon Tellez and alternate HCS is her niece Maribel Ceballos. Patient and family indicate from our conversation that they would like to pursue aggressive treatment even if it means patient may need hemodialysis in the future short of no code. CODE STATUS: DNR.DNI SYMPTOMS: * Pain: Multifactorial. Patient has history of arthritis. Patient has a chronic sacral wound. Endorsing pain to her legs and arms this visit making it difficult for patient to propel herself in her wheel chair. Patient on Tramadol 50mg BID prn. Last dose administered 04/10/17 * Decreased oral intake- Continues to have decreased appetite. Weight on =134kg; 04/09/16= 98.4kg. 04/08/17 Total protein= 8.4, Albumin= 2.3 * Physical deconditioning. Progressive. Patient has had multiple ER visits and hospital admissions this year which have showed continued decline. Patient is wheel chair bound and has a chronic sacral wound. She has also lost 35.6kg over a year unintentionally. Continues to have generalized weakness. Recommending physical therapy. Palliative care will continue to follow the patient during hospital course as condition evolves, to assist patient/decision-maker with understanding of their medical conditions, weighing benefits/burdens of treatment options, for clarification of goals of treatment. Additionally will assist with any symptoms of palliative concern Thank you for the opportunity to participate in the care of Ms. Lin. Attestation To help prompt me to consider important information that might be impacting today's encounter and assessment, information from prior notes written by myself or my colleagues may have been "brought forward" into today's note. My signature on this note, however, is an attestation that I personally performed the exam, history, and/or decision-making noted today, and, unless otherwise indicated, the interactions with patient, family, and staff as well as the review of records all occurred today. I also attest that the listed assessment and stated plan reflect my best clinical judgment today based on the combination of historical information, prior notes, and today's exam/ interactions. When time spent is documented, it refers only to time spent today by the signer, or if indicated, combined time spent today by collaborating physician/nurse practitioner. . Lino Teran Apr 10, 2017 10:01
[2017-04-10] MEDS ORDERED: TOBRAMYCIN 1200 MG VIAL (ortho-sterile core) ONE (12:52)
--- NOTE | 2017-04-10 12:58 | HHI.NPPN ---
Subjective History of Present Illness The patient is a 81 yo AA female who presented to this facility 04/08 with complaints of worsening fatigue leg weakness and leg pain. Has has numerous admissions in the past few months for dehydration. Her daughter and grand- daughter is present in the room. States in the past 3 weeks she has had poor appetite and has relied on appetite stimulants in the past. Was having some constipation about 1 week ago so she took magnesium citrate; since then has been having diarrhea. In ED, her BP was low and was given NS bolus of 500mL. Has been on NS at 75 since last evening. Has known CKD and has been told stage 3-4 in the past. Appears her baseline SCr is 1.8-2.2 range. Admitting SCr 6.36 that improved to 6.05 at consult. Is on Aldactone/HCTZ 25/25 QD at home as well as Lisinopril 10mg QD. Says she has been on this for some time. Mention of CHF in the chart, but the patient and family denies. Grand-daughter reports that she has had LE edema in the past, but none as of recent. Denies any SOB or CP. Daughter says that she has Aleve at home, but then soon redacts this after grand-daughter questions her. No recent antibiotics at home, but is under the care of [facility] for sacral wound. Denies any NV. No obstructive uropathy as hx. Is a diabetic with hypertension. Interval History Patient resting comfortably with no verbal complaints. Objective Data Data Vital Signs Date Time Temp Pulse Resp B/P (MAP) Pulse Ox O2 Delivery O2 Flow Rate FiO2 04/10/17 08:00 96.0 83 17 107/59 (75) 95 04/10/17 06:41 96.4 89 18 91/50 (64) 99 04/10/17 05:02 86 04/10/17 01:38 97.9 87 18 98/54 (69) 99 04/09/17 23:16 82 04/09/17 20:00 95.9 97 18 97/51 (66) 04/09/17 16:00 95.9 82 17 106/53 (70) 98 -: 04/09/17 1003 04/09/17 1208 Physical Exam General Appearance: No Acute Distress, Comfortable, Obese Eyes Eye Exam: Sclera White Neck Neck Exam: Trachea Midline Pulmonary Resp Exam: Clear Bilaterally, Breath Sounds Equal, No Distress Cardiology CV Exam: Regular, Normal Sinus Rhythm Gastrointestinal/Abdomen GI Exam: Soft, Non-Tender Integumentary Skin Exam: Clear, Warm Extremeties Extremities Exam: No Edema Neurologic Neuro Exam: Alert, Awake Psychiatric Psych Exam: Appropriate Responses Assessment/Plan Discussed Condition With: Patient Problem List: (1) Acute renal failure superimposed on stage 4 chronic kidney disease ICD Codes: N17.9 - Acute kidney failure, unspecified; N18.4 - Chronic kidney disease, stage 4 (severe) Status: Acute Plan: Acute renal failure appears to be related to intravascular volume depletion in setting of poor oral intake and diarrhea. Has been on Lisinopril as well as Aldactone/HCTZ at home that is likely contributing as well. Unfortunately patient was a difficult lab draw this morning and her blood studies have not yet been collected. Advised the nurse the importance of having this done as soon as possible in view of her severe renal insufficiency and previous hyperkalemia. Will review results when available. Hopefully renal functions will continue to improve and an ATN has not occurred. (2) Hyponatremia ICD Codes: E87.1 - Hypo-osmolality and hyponatremia Plan: Appears to be chronic Likely related to nutritional decline as well as thiazide diuretic. (3) DM2 (diabetes mellitus, type 2) ICD Codes: E11.9 - Type 2 diabetes mellitus without complications Status: Chronic Plan: Management as per primary Lobo Garcia MD Apr 10, 2017 12:58
[2017-04-10 13:48] LABS: HEMATOCRIT 31.2 % (35.0-46.0); MEAN CELL VOLUME 79.7 FL (80.0-100.0); MEAN CORPUSCULAR HEMOGLOBIN 25.7 PG (27.0-34.0); MEAN CORPUSCULAR HGB CONC 32.2 % (32.0-36.0); PLATELET COUNT 275 TH/MM3 (150-450); RED BLOOD COUNT 3.92 MIL/MM3 (4.00-5.30); RED CELL DISTRIBUTION WIDTH 20.8 % (11.6-17.2); REVIEW FLAG FINAL; WHITE BLOOD COUNT 7.3 TH/MM3 (4.0-11.0)
[2017-04-10 14:19] LABS: BICARBONATE 23.2 MEQ/L (21.0-32.0); POTASSIUM 6.3 MEQ/L (3.5-5.1)
[2017-04-10] MEDS ORDERED: RESP: ALBUTEROL CONC 2.5 MG/0.5 ML NEB NEB STA (14:54)
[2017-04-10] MEDS ORDERED: PATIROMER CALCIUM SORBITEX 16.8 GM PKT PO STA (14:54)
[2017-04-10] MEDS ORDERED: SODIUM POLYSTYRENE SULFONATE SUSP 15 GM/60 ML CUP PO ONE (15:15)
--- NOTE | 2017-04-10 15:22 | HHI.PR ---
Subjective Remarks Patient awake and alert no new complaints Objective Vitals Vital Signs Date Time Temp Pulse Resp B/P (MAP) Pulse Ox O2 Delivery O2 Flow Rate FiO2 04/10/17 12:00 95.5 86 17 106/56 (73) 95 04/10/17 08:00 96.0 83 17 107/59 (75) 95 04/10/17 06:41 96.4 89 18 91/50 (64) 99 04/10/17 05:02 86 04/10/17 01:38 97.9 87 18 98/54 (69) 99 04/09/17 23:16 82 04/09/17 20:00 95.9 97 18 97/51 (66) 04/09/17 16:00 95.9 82 17 106/53 (70) 98 Result Diagram: 04/10/17 1316 04/10/17 1316 Other Results Laboratory Tests Test 04/08/17 18:50 04/08/17 20:25 04/09/17 10:03 04/09/17 12:08 White Blood Count 9.7 TH/MM3 8.5 TH/MM3 Red Blood Count 3.74 MIL/MM3 4.00 MIL/MM3 Hemoglobin 9.6 GM/DL 10.3 GM/DL Hematocrit 29.9 % 32.7 % Mean Corpuscular Volume 79.9 FL 81.9 FL Mean Corpuscular Hemoglobin 25.8 PG 25.7 PG Mean Corpuscular Hemoglobin Concent 32.2 % 31.4 % Red Cell Distribution Width 20.6 % 20.9 % Platelet Count 329 TH/MM3 267 TH/MM3 Mean Platelet Volume 7.9 FL 7.7 FL Neutrophils (%) (Auto) 72.3 % 68.4 % Lymphocytes (%) (Auto) 19.0 % 22.7 % Monocytes (%) (Auto) 7.1 % 6.6 % Eosinophils (%) (Auto) 1.0 % 1.8 % Basophils (%) (Auto) 0.6 % 0.5 % Neutrophils # (Auto) 7.0 TH/MM3 5.8 TH/MM3 Lymphocytes # (Auto) 1.8 TH/MM3 1.9 TH/MM3 Monocytes # (Auto) 0.7 TH/MM3 0.6 TH/MM3 Eosinophils # (Auto) 0.1 TH/MM3 0.1 TH/MM3 Basophils # (Auto) 0.1 TH/MM3 0.0 TH/MM3 CBC Comment DIFF FINAL DIFF FINAL Differential Comment Blood Urea Nitrogen 91 MG/DL 91 MG/DL Creatinine 6.36 MG/DL 6.05 MG/DL Random Glucose 62 MG/DL 80 MG/DL Total Protein 8.4 GM/DL 8.1 GM/DL Albumin 2.3 GM/DL Calcium Level 10.2 MG/DL 9.9 MG/DL Alkaline Phosphatase 103 U/L Aspartate Amino Transf (AST/SGOT) 15 U/L Alanine Aminotransferase (ALT/SGPT) 11 U/L Total Bilirubin 0.6 MG/DL Sodium Level 131 MEQ/L 134 MEQ/L Potassium Level 6.1 MEQ/L 6.0 MEQ/L Chloride Level 97 MEQ/L 100 MEQ/L Carbon Dioxide Level 23.9 MEQ/L 24.8 MEQ/L Anion Gap 10 MEQ/L 9 MEQ/L Estimat Glomerular Filtration Rate 8 ML/MIN 8 ML/MIN B-Type Natriuretic Peptide 27 PG/ML Urine Color YELLOW Urine Turbidity HAZY Urine pH 5.0 Urine Specific [place] 1.017 Urine Protein 30 mg/dL Urine Glucose (UA) NEG mg/dL Urine Ketones NEG mg/dL Urine Occult Blood NEG Urine Nitrite NEG Urine Bilirubin NEG Urine Urobilinogen 2.0 MG/DL Urine Leukocyte Esterase TRACE Urine WBC LESS THAN 1 /hpf Urine Squamous Epithelial Cells 9 /hpf Urine Amorphous Sediment RARE Urine Bacteria OCC /hpf Urine Hyaline Casts 20 /lpf Urine Mucus FEW /lpf Microscopic Urinalysis Comment CULT NOT INDICATED Magnesium Level 3.3 MG/DL Phosphorus Level 4.6 MG/DL Iron Level 46 MCG/DL Total Iron Binding Capacity 165 MCG/DL Percent Iron Saturation 27.8 % Ferritin 1245 NG/ML 25-Hydroxy Vitamin D Total 35.7 ng/ML Test 04/10/17 13:16 White Blood Count 7.3 TH/MM3 Red Blood Count 3.92 MIL/MM3 Hemoglobin 10.0 GM/DL Hematocrit 31.2 % Mean Corpuscular Volume 79.7 FL Mean Corpuscular Hemoglobin 25.7 PG Mean Corpuscular Hemoglobin Concent 32.2 % Red Cell Distribution Width 20.8 % Platelet Count 275 TH/MM3 Mean Platelet Volume 7.6 FL Blood Urea Nitrogen 73 MG/DL Creatinine 5.04 MG/DL Random Glucose 149 MG/DL Albumin 2.2 GM/DL Calcium Level 9.6 MG/DL Phosphorus Level 3.7 MG/DL Sodium Level 135 MEQ/L Potassium Level 6.3 MEQ/L Chloride Level 103 MEQ/L Carbon Dioxide Level 23.2 MEQ/L Anion Gap 9 MEQ/L Estimat Glomerular Filtration Rate 10 ML/MIN Imaging Last 24 hours Impressions Chest X-Ray 04/08/17 0000 Signed Impressions: Service Date/Time: Saturday, April 08, 2017 17:26 - CONCLUSION: No acute disease. Chico Saldana MD Objective Remarks GENERAL: This is an obese, well-developed patient, in no apparent distress. SKIN: sacral ulcer dressing per wound care present dry and intact CARDIOVASCULAR: Regular rate and rhythm RESPIRATORY: Clear to auscultation. Breath sounds equal bilaterally. GASTROINTESTINAL: Abdomen soft, non-tender, nondistended. No hepato-splenomegaly , or palpable masses. No guarding. MUSCULOSKELETAL: Extremities without clubbing, cyanosis, or edema. No joint tenderness, effusion, or edema noted. No calf tenderness. Negative Homans sign bilaterally. NEUROLOGICAL: Awake and alert. No focal deficit noted. Motor and sensory grossly within normal limits. 3 out of 5 muscle strength in all muscle groups. Normal speech. A/P Problem List: (1) Acute renal failure ICD Codes: N17.9 - Acute kidney failure, unspecified Plan: - creatinine on admission (04/08) 6.36 -> (04/09) 6.05 -> (04/10) 5.04 - Continue IV hydration - consult renal, appreciate assistance - per nephrology: Acute renal failure appears to be related to intravascular volume depletion in setting of poor oral intake and diarrhea. Has been on Lisinopril as well as Aldactone/HCTZ at home that is likely contributing as well. - renal US reviewed and reveals: Echogenic kidneys suggesting medical renal disease. Multiple bilateral renal cysts. Unremarkable urinary bladder - recheck BMP in AM - palliative care consulted, appreciate - patient DNR (2) Dehydration ICD Codes: E86.0 - Dehydration Status: Acute Plan: as above (3) DM2 (diabetes mellitus, type 2) ICD Codes: E11.9 - Type 2 diabetes mellitus without complications Status: Chronic Plan: Hold metformin sliding scale coverage if needed patient hypoglycemia continue D5 Monitor glucose encourage PO intake continue Remeron for appetite stimulant (4) HTN (hypertension) ICD Codes: I10 - Essential (primary) hypertension Status: Chronic Plan: will hold blood pressure meds as is running low and in renal failure (5) Sacral ulcer ICD Codes: L98.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 Barrett with wound care who has ordered dressing changes, santyl and Dakins (6) Appetite loss ICD Codes: R63.0 - Anorexia Plan: continue Remeron change diet to regular diet (7) Diarrhea ICD Codes: R19.7 - Diarrhea, unspecified Plan: initially was constipated then took magnesium citrate OTC 04/03/17 since then has been having diarrhea which is now green in color stool studies ordered (8) Hyperkalemia ICD Codes: E87.5 - Hyperkalemia Plan: Potassium increased to 6.3 will give Kayexalate 30 ml x 1 and recheck in AM patient also followed by nephrology Assessment and Plan Patient examined. Assessment and plan formulated with Sandy Vyas PA-C. I agree with the above. Problem Qualifiers (1) Sacral ulcer: Qualified Codes: L98.429 - Non-pressure chronic ulcer of back with unspecified severity Sandy Vyas Apr 10, 2017 15:22 Uday Palacio DO Apr 11, 2017 13:36
[2017-04-10] MEDS ORDERED: CHLOROTHIAZIDE SOD 500 MG VIAL IV ONE (16:00)
[2017-04-10] MEDS: MIRTAZAPINE 15 MG TAB PO SCH (21:35)
[2017-04-10] MEDS: AMITRIPTYLINE HCL 50 MG TAB PO SCH (21:35)
[2017-04-11] VITALS (8 sets, daily range): BP systolic 80–115; BP diastolic 47–65; PULSE 62–97; RESP 16–20; TEMP 95.6–96.8; O2SAT 92–100
[2017-04-11] MEDS: DEXT 5%-NACL 0.9% 1000 ML INJ 1,000 ML IV SCH ×2 (02:38→15:19)
[2017-04-11 07:04] LABS: BICARBONATE 19.4 MEQ/L (21.0-32.0); MAGNESIUM 2.4 MG/DL (1.5-2.5); POTASSIUM 4.9 MEQ/L (3.5-5.1)
[2017-04-11] MEDS: INSULIN ASPART SUPPLEMENTAL SCALE SQ SCH ×3 (08:00→21:00)
--- NOTE | 2017-04-11 10:30 | HHI.NPPN ---
Subjective History of Present Illness The patient is a 81 yo AA female who presented to this facility 04/08 with complaints of worsening fatigue leg weakness and leg pain. Has has numerous admissions in the past few months for dehydration. Her daughter and grand- daughter is present in the room. States in the past 3 weeks she has had poor appetite and has relied on appetite stimulants in the past. Was having some constipation about 1 week ago so she took magnesium citrate; since then has been having diarrhea. In ED, her BP was low and was given NS bolus of 500mL. Has been on NS at 75 since last evening. Has known CKD and has been told stage 3-4 in the past. Appears her baseline SCr is 1.8-2.2 range. Admitting SCr 6.36 that improved to 6.05 at consult. Is on Aldactone/HCTZ 25/25 QD at home as well as Lisinopril 10mg QD. Says she has been on this for some time. Mention of CHF in the chart, but the patient and family denies. Grand-daughter reports that she has had LE edema in the past, but none as of recent. Denies any SOB or CP. Daughter says that she has Aleve at home, but then soon redacts this after grand-daughter questions her. No recent antibiotics at home, but is under the care of [facility] for sacral wound. Denies any NV. No obstructive uropathy as hx. Is a diabetic with hypertension. Interval History Pt states she feels a little better today. Still weak but improving. Appetite about the same. Having diarrhea--likely related to Kionex. (Indy Mendoza) Review of Systems General Constitutional: Fatigue (Indy Mendoza) Gastrointestinal Gastrointestinal: Diarrhea (Indy Mendoza) Objective Data Data Vital Signs Date Time Temp Pulse Resp B/P (MAP) Pulse Ox O2 Delivery O2 Flow Rate FiO2 04/11/17 08:00 96.6 66 16 89/53 (65) 100 04/11/17 05:29 96.5 86 20 99/51 (67) 92 04/11/17 01:36 95.9 62 20 98/60 (73) 92 04/10/17 21:24 96.6 67 20 94/51 (65) 94 04/10/17 18:17 95 04/10/17 16:00 95.6 101 17 101/44 (63) 95 04/10/17 13:13 93 04/10/17 12:00 95.5 86 17 106/56 (73) 95 (Indy Mendoza) -: 04/10/17 1316 04/11/17 0410 Microbiology 04/10/17 Cryptosporidium Exam, Resulted Pending 04/10/17 Stool Pus (RANJIT) - Final, Resulted NO WBC'S SEEN 04/10/17 Giardia Antigen (RANJIT), Resulted Pending 04/10/17 Stool Occult Blood (RANJIT) - Final, Resulted HEMOCCULT NEGATIVE Imaging Last Impressions Abdomen/Pelvis CT 04/09/17 0600 Signed Impressions: Service Date/Time: April 01:23 - CONCLUSION: 1. No evidence of primary tumor or metastatic disease on this noncontrast exam. 2. Multiple low attenuation lesions in the liver which likely represent cysts or cavernous hemangiomas. 3. Small amount of pericardial fluid. 4. Small amount of pericardial fluid. Next number prominent uterus with calcified leiomyomata. Devon Marks MD Renal Ultrasound 04/09/17 0000 Signed Impressions: Service Date/Time: April 21:10 - CONCLUSION: 1. Echogenic kidneys suggesting medical renal disease. 2. Multiple bilateral renal cysts. 3. Unremarkable urinary bladder. Chico Saldana MD Chest X-Ray 04/08/17 0000 Signed Impressions: Service Date/Time: Saturday, April 08, 2017 17:26 - CONCLUSION: No acute disease. Chico Saldana MD Medication Review Current Medications Medications (Trade) Dose Ordered Sig/Daniella Route Start Time Stop Time Status Last Admin (Zetia) 10 mg DAILY PO 04/09/17 09:00 04/10/17 08:22 (Remeron) 30 mg HS PO 04/09/17 21:00 04/10/17 21:35 (Ultram) 50 mg BID PRN PO 04/08/17 22:00 04/10/17 12:26 (NS Flush) 2 ml UNSCH PRN IV FLUSH 04/08/17 22:00 (NS Flush) 2 ml BID IV FLUSH 04/09/17 09:00 04/09/17 20:14 (Zofran Inj) 4 mg Q6H PRN IVP 04/08/17 22:00 (Narcan Inj) 0.4 mg UNSCH PRN IV PUSH 04/08/17 22:00 ([place]-Colace) 1 tab BID PO 04/09/17 09:00 04/10/17 08:22 (Senokot) 17.2 mg Q12H PRN PO 04/08/17 22:00 (Dulcolax Supp) 10 mg DAILY PRN RECTAL 04/08/17 22:00 (Lactulose Liq) 30 ml DAILY PRN PO 04/08/17 22:00 (NovoLOG SUPPLEMENTAL SCALE) 1 ACHS SLIDING SCALE SQ 04/09/17 08:00 (Amaryl) 1 mg BID PO 04/09/17 09:00 Future Hold (Elavil) 50 mg HS PO 04/09/17 21:00 04/10/17 21:35 Dextrose/Sodium Chloride 1,000 ml @ 100 mls/hr Q10H IV 04/09/17 08:45 04/11/17 02:38 (Morphine Inj) 2 mg Q8H PRN IV PUSH 04/09/17 10:15 (Dakin'S 0.125% Soln) 1 ml DAILY PRN TOPICAL 04/09/17 15:45 (Santyl Oint) 1 applic DAILY PRN TOPICAL 04/09/17 15:45 04/10/17 12:19 (Heparin Inj) 5,000 units Q12HR SQ 04/10/17 09:00 04/10/17 21:00 (Indy Mednoza) Physical Exam General Appearance: No Acute Distress, Comfortable, Obese (Indy Mendoza) Eyes Eye Exam: Sclera White (Indy Mendoza) Neck Neck Exam: Trachea Midline (Inyd Mendoza) Pulmonary Resp Exam: Clear Bilaterally, Breath Sounds Equal, No Distress (Indy Mendoza) Cardiology CV Exam: Regular, Normal Sinus Rhythm (Indy Mendoza) Gastrointestinal/Abdomen GI Exam: Soft, Non-Tender (Indy Mendoza) Integumentary Skin Exam: Clear, Warm (Indy Mendoza) Extremeties Extremities Exam: No Edema (Indy Mendoza) Neurologic Neuro Exam: Alert, Awake (Indy Mendoza) Psychiatric Psych Exam: Appropriate Responses (Indy Mendoza) Assessment/Plan Discussed Condition With: Patient Problem List: (1) Acute renal failure superimposed on stage 4 chronic kidney disease ICD Codes: N17.9 - Acute kidney failure, unspecified; N18.4 - Chronic kidney disease, stage 4 (severe) Status: Acute Plan: Acute renal failure appears to be related to intravascular volume depletion in setting of poor oral intake and diarrhea. Has been on Lisinopril as well as Aldactone/HCTZ at home that is likely contributing as well. Renal functions improving slowly. Potassium now in normal range. Continue on restrictive diet. Mild acidosis today likely related to diarrhea. Consider po bicarb if not improved tomorrow. Will continue to follow. Home medications may need to be re-evaluated before discharge given her propensity to dehydration (2) Hyponatremia ICD Codes: E87.1 - Hypo-osmolality and hyponatremia Plan: Appears to be chronic Likely related to nutritional decline as well as thiazide diuretic. (3) DM2 (diabetes mellitus, type 2) ICD Codes: E11.9 - Type 2 diabetes mellitus without complications Status: Chronic Plan: Management as per primary (Indy Mendoza) Plan The exam, history, and the medical decision-making described in the above note were completed with the assistance of the CARE[facility]. I reviewed and agree with the findings presented. (Lobo Garcia MD) Indy Mendoza Apr 11, 2017 10:30 Lobo Garcia MD Apr 12, 2017 14:21
[2017-04-11] MEDS: DOCUSATE SODIUM 50 MG/SENNA 8.6 MG TAB PO SCH ×2 (12:06→21:00)
[2017-04-11] MEDS: EZETIMIBE 10 MG TAB PO SCH (12:06)
[2017-04-11] MEDS: HEPARIN SODIUM - SQ 10,000 UNITS/ML VIAL SQ SCH ×2 (12:07→21:15)
[2017-04-11] MEDS: SODIUM CHLORIDE 0.9% FLUSH 10 ML FLUSH IV FLUSH SCH ×2 (12:07→21:00)
--- NOTE | 2017-04-11 12:17 | HHI.PR ---
Subjective Remarks Patient awake and alert offers no new complaints Objective Vitals Vital Signs Date Time Temp Pulse Resp B/P (MAP) Pulse Ox O2 Delivery O2 Flow Rate FiO2 04/11/17 08:00 96.6 66 16 89/53 (65) 100 04/11/17 05:29 96.5 86 20 99/51 (67) 92 04/11/17 01:36 95.9 62 20 98/60 (73) 92 04/10/17 21:24 96.6 67 20 94/51 (65) 94 04/10/17 18:17 95 04/10/17 16:00 95.6 101 17 101/44 (63) 95 04/10/17 13:13 93 Result Diagram: 04/10/17 1316 04/11/17 0410 Other Results Laboratory Tests Test 04/08/17 18:50 04/08/17 20:25 04/09/17 10:03 04/09/17 12:08 White Blood Count 9.7 TH/MM3 8.5 TH/MM3 Red Blood Count 3.74 MIL/MM3 4.00 MIL/MM3 Hemoglobin 9.6 GM/DL 10.3 GM/DL Hematocrit 29.9 % 32.7 % Mean Corpuscular Volume 79.9 FL 81.9 FL Mean Corpuscular Hemoglobin 25.8 PG 25.7 PG Mean Corpuscular Hemoglobin Concent 32.2 % 31.4 % Red Cell Distribution Width 20.6 % 20.9 % Platelet Count 329 TH/MM3 267 TH/MM3 Mean Platelet Volume 7.9 FL 7.7 FL Neutrophils (%) (Auto) 72.3 % 68.4 % Lymphocytes (%) (Auto) 19.0 % 22.7 % Monocytes (%) (Auto) 7.1 % 6.6 % Eosinophils (%) (Auto) 1.0 % 1.8 % Basophils (%) (Auto) 0.6 % 0.5 % Neutrophils # (Auto) 7.0 TH/MM3 5.8 TH/MM3 Lymphocytes # (Auto) 1.8 TH/MM3 1.9 TH/MM3 Monocytes # (Auto) 0.7 TH/MM3 0.6 TH/MM3 Eosinophils # (Auto) 0.1 TH/MM3 0.1 TH/MM3 Basophils # (Auto) 0.1 TH/MM3 0.0 TH/MM3 CBC Comment DIFF FINAL DIFF FINAL Differential Comment Blood Urea Nitrogen 91 MG/DL 91 MG/DL Creatinine 6.36 MG/DL 6.05 MG/DL Random Glucose 62 MG/DL 80 MG/DL Total Protein 8.4 GM/DL 8.1 GM/DL Albumin 2.3 GM/DL Calcium Level 10.2 MG/DL 9.9 MG/DL Alkaline Phosphatase 103 U/L Aspartate Amino Transf (AST/SGOT) 15 U/L Alanine Aminotransferase (ALT/SGPT) 11 U/L Total Bilirubin 0.6 MG/DL Sodium Level 131 MEQ/L 134 MEQ/L Potassium Level 6.1 MEQ/L 6.0 MEQ/L Chloride Level 97 MEQ/L 100 MEQ/L Carbon Dioxide Level 23.9 MEQ/L 24.8 MEQ/L Anion Gap 10 MEQ/L 9 MEQ/L Estimat Glomerular Filtration Rate 8 ML/MIN 8 ML/MIN B-Type Natriuretic Peptide 27 PG/ML Urine Color YELLOW Urine Turbidity HAZY Urine pH 5.0 Urine Specific [place] 1.017 Urine Protein 30 mg/dL Urine Glucose (UA) NEG mg/dL Urine Ketones NEG mg/dL Urine Occult Blood NEG Urine Nitrite NEG Urine Bilirubin NEG Urine Urobilinogen 2.0 MG/DL Urine Leukocyte Esterase TRACE Urine WBC LESS THAN 1 /hpf Urine Squamous Epithelial Cells 9 /hpf Urine Amorphous Sediment RARE Urine Bacteria OCC /hpf Urine Hyaline Casts 20 /lpf Urine Mucus FEW /lpf Microscopic Urinalysis Comment CULT NOT INDICATED Magnesium Level 3.3 MG/DL Phosphorus Level 4.6 MG/DL Iron Level 46 MCG/DL Total Iron Binding Capacity 165 MCG/DL Percent Iron Saturation 27.8 % Ferritin 1245 NG/ML 25-Hydroxy Vitamin D Total 35.7 ng/ML Test 04/10/17 13:16 04/10/17 19:00 04/10/17 22:15 04/11/17 04:10 White Blood Count 7.3 TH/MM3 Red Blood Count 3.92 MIL/MM3 Hemoglobin 10.0 GM/DL Hematocrit 31.2 % Mean Corpuscular Volume 79.7 FL Mean Corpuscular Hemoglobin 25.7 PG Mean Corpuscular Hemoglobin Concent 32.2 % Red Cell Distribution Width 20.8 % Platelet Count 275 TH/MM3 Mean Platelet Volume 7.6 FL Blood Urea Nitrogen 73 MG/DL 58 MG/DL Creatinine 5.04 MG/DL 4.18 MG/DL Random Glucose 149 MG/DL 114 MG/DL Albumin 2.2 GM/DL Calcium Level 9.6 MG/DL 8.9 MG/DL Phosphorus Level 3.7 MG/DL 3.1 MG/DL Sodium Level 135 MEQ/L 135 MEQ/L Potassium Level 6.3 MEQ/L 4.4 MEQ/L 4.9 MEQ/L Chloride Level 103 MEQ/L 106 MEQ/L Carbon Dioxide Level 23.2 MEQ/L 19.4 MEQ/L Anion Gap 9 MEQ/L 10 MEQ/L Estimat Glomerular Filtration Rate 10 ML/MIN 12 ML/MIN Parathyroid Hormone (Intact) 47.1 PG/ML Eosinophil Stool Smear NONE SEEN /HPF Magnesium Level 2.4 MG/DL Test 04/11/17 12:00 Imaging Last 24 hours Impressions Chest X-Ray 04/08/17 0000 Signed Impressions: Service Date/Time: Saturday, April 08, 2017 17:26 - CONCLUSION: No acute disease. Chico Saldana MD Objective Remarks GENERAL: This is an obese, well-developed patient, in no apparent distress. SKIN: sacral ulcer dressing per wound care present dry and intact CARDIOVASCULAR: Regular rate and rhythm RESPIRATORY: Clear to auscultation. Breath sounds equal bilaterally. GASTROINTESTINAL: Abdomen soft, non-tender, nondistended. No hepato-splenomegaly , or palpable masses. No guarding. MUSCULOSKELETAL: Extremities without clubbing, cyanosis, or edema. No joint tenderness, effusion, or edema noted. No calf tenderness. Negative Homans sign bilaterally. NEUROLOGICAL: Awake and alert. No focal deficit noted. Motor and sensory grossly within normal limits. 3 out of 5 muscle strength in all muscle groups. Normal speech. A/P Problem List: (1) Acute renal failure ICD Codes: N17.9 - Acute kidney failure, unspecified Plan: - creatinine on admission (04/08) 6.36 -> (04/09) 6.05 -> (04/10) 5.04 -> ( 04/11) 4.18 - Continue IV hydration - consult renal, appreciate assistance - per nephrology: Acute renal failure appears to be related to intravascular volume depletion in setting of poor oral intake and diarrhea. Has been on Lisinopril as well as Aldactone/HCTZ at home that is likely contributing as well. - renal US reviewed and reveals: Echogenic kidneys suggesting medical renal disease. Multiple bilateral renal cysts. Unremarkable urinary bladder - recheck BMP in AM - palliative care consulted, appreciate - patient DNR (2) Dehydration ICD Codes: E86.0 - Dehydration Status: Acute Plan: as above (3) DM2 (diabetes mellitus, type 2) ICD Codes: E11.9 - Type 2 diabetes mellitus without complications Status: Chronic Plan: Hold metformin sliding scale coverage if needed patient hypoglycemia continue D5 Monitor glucose encourage PO intake continue Remeron for appetite stimulant (4) HTN (hypertension) ICD Codes: I10 - Essential (primary) hypertension Status: Chronic Plan: will hold blood pressure meds as is running low and in renal failure (5) Sacral ulcer ICD Codes: L98.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 Barrett with wound care who has ordered dressing changes, santyl and Dakins (6) Appetite loss ICD Codes: R63.0 - Anorexia Plan: continue Remeron change diet to regular diet (7) Diarrhea ICD Codes: R19.7 - Diarrhea, unspecified Plan: initially was constipated then took magnesium citrate OTC 04/03/17 since then has been having diarrhea which is now green in color stool studies pending (8) Hyperkalemia ICD Codes: E87.5 - Hyperkalemia Plan: Potassium increased to 6.3 (04/10) -. (04/11) will give Kayexalate 30 ml x 1 and recheck in AM patient also followed by nephrology Assessment and Plan Patient examined. Assessment and plan formulated with Sandy Vyas PA-C. I agree with the above. Continue to encourage PO intake continue D5NS at 100ml/hour observe blood sugar readings and creatinine Cr 6.36 (04/08), 4.18 (04/11) anticipate d/c in 3-4 days Problem Qualifiers (1) Sacral ulcer: Qualified Codes: L98.429 - Non-pressure chronic ulcer of back with unspecified severity Sandy Vyas Apr 11, 2017 12:17 Uday Palacio DO Apr 11, 2017 13:38
[2017-04-11] MEDS ORDERED: SODIUM CHLORID 0.9% 500 ML INJ 500 ML IV ONE (17:00)
[2017-04-11] MEDS: AMITRIPTYLINE HCL 50 MG TAB PO SCH (21:15)
[2017-04-11] MEDS: MIRTAZAPINE 15 MG TAB PO SCH (21:15)
[2017-04-12] VITALS: BP 99/57; PULSE 93; RESP 17; TEMP 97.2; O2SAT 95
[2017-04-12] MEDS: DEXT 5%-NACL 0.9% 1000 ML INJ 1,000 ML IV SCH ×2 (01:54→12:13)
[2017-04-12 04:00] VITALS: BP 96/53; PULSE 87; RESP 17; TEMP 96.4; O2SAT 95
[2017-04-12 08:00] VITALS: BP 91/54; PULSE 80; RESP 17; TEMP 97.5; O2SAT 95
[2017-04-12] MEDS: INSULIN ASPART SUPPLEMENTAL SCALE SQ SCH ×2 (08:00→12:00)
[2017-04-12 08:49] LABS: BICARBONATE 24.8 MEQ/L (21.0-32.0); POTASSIUM 3.5 MEQ/L (3.5-5.1)
[2017-04-12] MEDS: SODIUM CHLORIDE 0.9% FLUSH 10 ML FLUSH IV FLUSH SCH ×2 (09:00→21:00)
[2017-04-12] MEDS: DOCUSATE SODIUM 50 MG/SENNA 8.6 MG TAB PO SCH ×2 (10:48→21:00)
[2017-04-12] MEDS: EZETIMIBE 10 MG TAB PO SCH (10:48)
[2017-04-12] MEDS: HEPARIN SODIUM - SQ 10,000 UNITS/ML VIAL SQ SCH ×2 (10:49→21:14)
[2017-04-12 12:00] VITALS: BP 89/54; PULSE 88; RESP 18; TEMP 97.3
--- NOTE | 2017-04-12 12:28 | HHI.PR ---
Subjective Remarks Patient awake and alert offers no specific complaints continues to have poor PO intake- patient and family not interested in PEG tube Objective Vitals Vital Signs Date Time Temp Pulse Resp B/P (MAP) Pulse Ox O2 Delivery O2 Flow Rate FiO2 04/12/17 08:00 97.5 80 17 91/54 (66) 95 04/12/17 04:00 96.4 87 17 96/53 (67) 95 04/12/17 00:00 97.2 93 17 99/57 (71) 95 04/11/17 21:00 75 04/11/17 20:00 96.5 80 18 107/57 (74) 97 04/11/17 17:43 96.8 97 112/65 (81) 04/11/17 16:00 95.6 92 16 81/47 (58) 100 80/50 (60) Result Diagram: 04/10/17 1316 04/12/17 0806 Other Results Laboratory Tests Test 04/10/17 13:16 04/10/17 19:00 04/10/17 22:15 04/11/17 04:10 White Blood Count 7.3 TH/MM3 Red Blood Count 3.92 MIL/MM3 Hemoglobin 10.0 GM/DL Hematocrit 31.2 % Mean Corpuscular Volume 79.7 FL Mean Corpuscular Hemoglobin 25.7 PG Mean Corpuscular Hemoglobin Concent 32.2 % Red Cell Distribution Width 20.8 % Platelet Count 275 TH/MM3 Mean Platelet Volume 7.6 FL Blood Urea Nitrogen 73 MG/DL 58 MG/DL Creatinine 5.04 MG/DL 4.18 MG/DL Random Glucose 149 MG/DL 114 MG/DL Albumin 2.2 GM/DL Calcium Level 9.6 MG/DL 8.9 MG/DL Phosphorus Level 3.7 MG/DL 3.1 MG/DL Sodium Level 135 MEQ/L 135 MEQ/L Potassium Level 6.3 MEQ/L 4.4 MEQ/L 4.9 MEQ/L Chloride Level 103 MEQ/L 106 MEQ/L Carbon Dioxide Level 23.2 MEQ/L 19.4 MEQ/L Anion Gap 9 MEQ/L 10 MEQ/L Estimat Glomerular Filtration Rate 10 ML/MIN 12 ML/MIN Parathyroid Hormone (Intact) 47.1 PG/ML Eosinophil Stool Smear NONE SEEN /HPF Magnesium Level 2.4 MG/DL Test 04/11/17 12:00 04/12/17 08:06 Urine Eosinophils NONE SEEN /HPF Blood Urea Nitrogen 43 MG/DL Creatinine 2.84 MG/DL Random Glucose 109 MG/DL Calcium Level 9.0 MG/DL Sodium Level 143 MEQ/L Potassium Level 3.5 MEQ/L Chloride Level 111 MEQ/L Carbon Dioxide Level 24.8 MEQ/L Anion Gap 7 MEQ/L Estimat Glomerular Filtration Rate 19 ML/MIN Imaging Last 24 hours Impressions Chest X-Ray 04/08/17 0000 Signed Impressions: Service Date/Time: Saturday, April 08, 2017 17:26 - CONCLUSION: No acute disease. Chico Saldana MD Objective Remarks GENERAL: This is an obese, well-developed patient, in no apparent distress. SKIN: sacral ulcer dressing per wound care present dry and intact CARDIOVASCULAR: Regular rate and rhythm RESPIRATORY: Clear to auscultation. Breath sounds equal bilaterally. GASTROINTESTINAL: Abdomen soft, non-tender, nondistended. No hepato-splenomegaly , or palpable masses. No guarding. MUSCULOSKELETAL: Extremities without clubbing, cyanosis, or edema. No joint tenderness, effusion, or edema noted. No calf tenderness. Negative Homans sign bilaterally. NEUROLOGICAL: Awake and alert. No focal deficit noted. Motor and sensory grossly within normal limits. 3 out of 5 muscle strength in all muscle groups. Normal speech. A/P Problem List: (1) Acute renal failure ICD Codes: N17.9 - Acute kidney failure, unspecified Plan: - creatinine on admission (04/08) 6.36 -> (04/09) 6.05 -> (04/10) 5.04 -> ( 04/11) 4.18 -> (04/12) 2.84 - Continue IV hydration - consult renal, appreciate assistance - per nephrology: Acute renal failure appears to be related to intravascular volume depletion in setting of poor oral intake and diarrhea. Has been on Lisinopril as well as Aldactone/HCTZ at home that is likely contributing as well. - renal US reviewed and reveals: Echogenic kidneys suggesting medical renal disease. Multiple bilateral renal cysts. Unremarkable urinary bladder - recheck BMP in AM - palliative care consulted, appreciate assistance - patient DNR (2) Dehydration ICD Codes: E86.0 - Dehydration Status: Acute Plan: as above (3) DM2 (diabetes mellitus, type 2) ICD Codes: E11.9 - Type 2 diabetes mellitus without complications Status: Chronic Plan: Hold oral diabetic medication sliding scale coverage if needed patient hypoglycemia continue D5 once blood sugar is >200 plan to change IV fluid to NS Monitor glucose encourage PO intake continue Remeron for appetite stimulant (4) HTN (hypertension) ICD Codes: I10 - Essential (primary) hypertension Status: Chronic Plan: will hold blood pressure meds as is running low and in renal failure (5) Sacral ulcer ICD Codes: L98.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 Barrett with wound care who has ordered dressing changes, santyl and Dakins (6) Appetite loss ICD Codes: R63.0 - Anorexia Plan: continue Remeron change diet to regular diet- still poor PO intake discussed with patient and family regarding possibility of PEG tube- they are not interested in PEG tube Also discussed with patient and family the nature decline and option of hospice patient and family interested in hospice meeting. consult ordered (7) Diarrhea ICD Codes: R19.7 - Diarrhea, unspecified Plan: initially was constipated then took magnesium citrate OTC 04/03/17 since then has been having diarrhea which is now green in color C diff pending stool eosinophil negative Stool Cryptosporidium pending Stool Giardia negative Stool negative for occult blood 04/12 diarrhea improving patient has only has 2 BMs in the past 24 hours (8) Hyperkalemia ICD Codes: E87.5 - Hyperkalemia Plan: Potassium increased to 6.3 (04/10) -> (04/11) -> (04/12) 3.5 04/10will give Kayexalate 30 ml x 1 patient also followed by nephrology recheck in AM Problem Qualifiers (1) Sacral ulcer: Qualified Codes: L98.429 - Non-pressure chronic ulcer of back with unspecified severity Sandy Vyas Apr 12, 2017 12:28
[2017-04-12] MEDS ORDERED: POTASSIUM CHLORIDE 20 MEQ CONTROLLED RELEASE TAB PO ONE (15:00)
--- NOTE | 2017-04-12 15:04 | HHI.NPPN ---
Subjective History of Present Illness The patient is a 81 yo AA female who presented to this facility 04/08 with complaints of worsening fatigue leg weakness and leg pain. Has has numerous admissions in the past few months for dehydration. Her daughter and grand- daughter is present in the room. States in the past 3 weeks she has had poor appetite and has relied on appetite stimulants in the past. Was having some constipation about 1 week ago so she took magnesium citrate; since then has been having diarrhea. In ED, her BP was low and was given NS bolus of 500mL. Has been on NS at 75 since last evening. Has known CKD and has been told stage 3-4 in the past. Appears her baseline SCr is 1.8-2.2 range. Admitting SCr 6.36 that improved to 6.05 at consult. Is on Aldactone/HCTZ 25/25 QD at home as well as Lisinopril 10mg QD. Says she has been on this for some time. Mention of CHF in the chart, but the patient and family denies. Grand-daughter reports that she has had LE edema in the past, but none as of recent. Denies any SOB or CP. Daughter says that she has Aleve at home, but then soon redacts this after grand-daughter questions her. No recent antibiotics at home, but is under the care of [facility] for sacral wound. Denies any NV. No obstructive uropathy as hx. Is a diabetic with hypertension. Interval History Patient indicating she was feeling somewhat better. Poor appetite however. Review of Systems General Constitutional: Fatigue Gastrointestinal Gastrointestinal: Diarrhea Objective Data Data Vital Signs Date Time Temp Pulse Resp B/P (MAP) Pulse Ox O2 Delivery O2 Flow Rate FiO2 04/12/17 12:00 97.3 88 18 89/54 (66) 04/12/17 08:00 97.5 80 17 91/54 (66) 95 04/12/17 04:00 96.4 87 17 96/53 (67) 95 04/12/17 00:00 97.2 93 17 99/57 (71) 95 04/11/17 21:00 75 04/11/17 20:00 96.5 80 18 107/57 (74) 97 04/11/17 17:43 96.8 97 112/65 (81) 04/11/17 16:00 95.6 92 16 81/47 (58) 100 80/50 (60) -: 04/10/17 1316 04/12/17 0806 Physical Exam General Appearance: No Acute Distress, Comfortable, Obese Eyes Eye Exam: Sclera White Neck Neck Exam: Trachea Midline Pulmonary Resp Exam: Clear Bilaterally, Breath Sounds Equal, No Distress Cardiology CV Exam: Regular, Normal Sinus Rhythm Gastrointestinal/Abdomen GI Exam: Soft, Non-Tender Integumentary Skin Exam: Clear, Warm Extremeties Extremities Exam: No Edema Neurologic Neuro Exam: Alert, Awake Psychiatric Psych Exam: Appropriate Responses Assessment/Plan Discussed Condition With: Patient Problem List: (1) Acute renal failure superimposed on stage 4 chronic kidney disease ICD Codes: N17.9 - Acute kidney failure, unspecified; N18.4 - Chronic kidney disease, stage 4 (severe) Status: Acute Plan: Acute renal failure appears to be related to intravascular volume depletion in setting of poor oral intake and diarrhea. Had been on Lisinopril as well as Aldactone/HCTZ at home that likely contributed as well. Renal function is continuing to improve daily with IV fluids however the patient was advised that she needs to maintain an adequate oral intake and was encouraged to do so. Discussed with the family. Change IV fluids from normal saline to half normal at this point in time. Potassium supplement ordered today as potassium level at lower limit. Will continue to follow intermittently. Home medications may need to be re-evaluated before discharge given her propensity to dehydration (2) Hyponatremia ICD Codes: E87.1 - Hypo-osmolality and hyponatremia Plan: Appears to be chronic Likely related to nutritional decline as well as thiazide diuretic. (3) DM2 (diabetes mellitus, type 2) ICD Codes: E11.9 - Type 2 diabetes mellitus without complications Status: Chronic Plan: Management as per primary Plan The exam, history, and the medical decision-making described in the above note were completed with the assistance of the CAREY. I reviewed and agree with the findings presented. Lobo Garcia MD Apr 12, 2017 15:04
[2017-04-12 16:00] VITALS: BP 117/50; PULSE 99; RESP 17; TEMP 97.9; O2SAT 100
[2017-04-12] MEDS ORDERED: SODIUM CHLORID 0.9% 500 ML INJ 500 ML IV ONE (17:15)
[2017-04-12] MEDS: SODIUM CHLOR 0.45% 1000 ML INJ 1,000 ML IV SCH ×2 (17:42→22:49)
[2017-04-12 20:00] VITALS: BP 105/57; PULSE 111; RESP 17; TEMP 97.7; O2SAT 95
[2017-04-12] MEDS: AMITRIPTYLINE HCL 50 MG TAB PO SCH (21:11)
[2017-04-12] MEDS: MIRTAZAPINE 15 MG TAB PO SCH (21:11)
[2017-04-13] VITALS: BP 98/54; PULSE 83; RESP 16; TEMP 98.5; O2SAT 97
[2017-04-13 01:03] LABS: C. DIFF EPI 027 PRESUMPTIVE NEGATIVE (NEGATIVE)
[2017-04-13 03:52] LABS: BICARBONATE 21.7 MEQ/L (21.0-32.0); POTASSIUM 3.6 MEQ/L (3.5-5.1)
[2017-04-13 04:00] VITALS: BP 94/50; PULSE 90; RESP 17; TEMP 97.6; O2SAT 100
[2017-04-13] MEDS ORDERED: METR-1 PO (07:34)
[2017-04-13] MEDS ORDERED: COLL30T TOPICAL (07:37)
[2017-04-13] MEDS ORDERED: DAKI0.12 TOPICAL (07:37)
--- NOTE | 2017-04-13 07:39 | HHI.DCPOC ---
Discharge Care Plan Diagnosis: (1) C. difficile diarrhea (2) Dehydration (3) Acute renal failure superimposed on stage 4 chronic kidney disease (4) Physical deconditioning (5) Decreased oral intake (6) Hyperkalemia Goals to Promote Your Health * To prevent worsening of your condition and complications * To maintain your health at the optimal level Directions to Meet Your Goals Take your medications as prescribed Follow your dietary instruction Follow activity as directed Keep your appointments as scheduled Take your immunizations and boosters as scheduled If your symptoms worsen call your PCP, if no PCP go to Urgent Care Center or Emergency Room Smoking is Dangerous to Your Health. Avoid second hand smoke Call the 24-hour hour crisis hotline for domestic abuse at Sandy Vyas Apr 13, 2017 07:39
--- NOTE | 2017-04-13 07:45 | HHI.DS ---
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 Garcia Procedures none Brief History 81-year-old female with PMH of HTN, CHF, DM, NARGIS presents to the ED via EMS for evaluation of bilateral joint and leg pain, worsening over the last 3 weeks. She states that she is minimally ambulatory but uses the legs to push her wheelchair around. She states even this is becoming more painful. She also complains of sacral ulcer, present for "about 5 months." She states that she has home healthcare for the wound 3 times a week. She endorses intermittent, nonbloody diarrhea since last week. She endorses accompanying nausea and decreased appetite. He endorses chronic urinary incontinence. She denies fever , chills, chest pain, shortness of breath, vomiting. No treatment attempted at home. Patient states has been taking home meds ,in er was found to be hypotensive received IV fluid and has renal failure new as compared to labs from February. CBC/BMP: 04/10/17 1316 04/13/17 0307 Significant Findings Laboratory Tests Test 04/10/17 13:16 04/10/17 19:00 04/10/17 22:15 04/11/17 04:10 Red Blood Count 3.92 MIL/MM3 (4.00-5.30) Hemoglobin 10.0 GM/DL (11.6-15.3) Hematocrit 31.2 % (35.0-46.0) Mean Corpuscular Volume 79.7 FL (80.0-100.0) Mean Corpuscular Hemoglobin 25.7 PG (27.0-34.0) Red Cell Distribution Width 20.8 % (11.6-17.2) Blood Urea Nitrogen 73 MG/DL (7-18) 58 MG/DL (7-18) Creatinine 5.04 MG/DL (0.50-1.00) 4.18 MG/DL (0.50-1.00) Random Glucose 149 MG/DL (74-106) 114 MG/DL (74-106) Albumin 2.2 GM/DL (3.4-5.0) Sodium Level 135 MEQ/L (136-145) 135 MEQ/L (136-145) Potassium Level 6.3 MEQ/L (3.5-5.1) Estimat Glomerular Filtration Rate 10 ML/MIN (>89) 12 ML/MIN (>89) Stool C. difficile Toxin (PCR) POSITIVE (NEGATIVE) Carbon Dioxide Level 19.4 MEQ/L (21.0-32.0) Test 04/11/17 12:00 04/12/17 08:06 04/13/17 03:07 Blood Urea Nitrogen 43 MG/DL (7-18) 31 MG/DL (7-18) Creatinine 2.84 MG/DL (0.50-1.00) 2.20 MG/DL (0.50-1.00) Random Glucose 109 MG/DL (74-106) Chloride Level 111 MEQ/L (98-107) 112 MEQ/L (98-107) Estimat Glomerular Filtration Rate 19 ML/MIN (>89) 26 ML/MIN (>89) Imaging Last Impressions Abdomen/Pelvis CT 04/09/17 0600 Signed Impressions: Service Date/Time: April 01:23 - CONCLUSION: 1. No evidence of primary tumor or metastatic disease on this noncontrast exam. 2. Multiple low attenuation lesions in the liver which likely represent cysts or cavernous hemangiomas. 3. Small amount of pericardial fluid. 4. Small amount of pericardial fluid. Next number prominent uterus with calcified leiomyomata. Devon Marks MD Renal Ultrasound 04/09/17 0000 Signed Impressions: Service Date/Time: April 21:10 - CONCLUSION: 1. Echogenic kidneys suggesting medical renal disease. 2. Multiple bilateral renal cysts. 3. Unremarkable urinary bladder. Chico Saldana MD Chest X-Ray 04/08/17 0000 Signed Impressions: Service Date/Time: Saturday, April 08, 2017 17:26 - CONCLUSION: No acute disease. Chico Saldana MD PE at Discharge GENERAL: This is an obese, well-developed patient, in no apparent distress. SKIN: sacral ulcer dressing per wound care present dry and intact CARDIOVASCULAR: Regular rate and rhythm RESPIRATORY: Clear to auscultation. Breath sounds equal bilaterally. GASTROINTESTINAL: Abdomen soft, non-tender, nondistended. No hepato-splenomegaly , or palpable masses. No guarding. MUSCULOSKELETAL: Extremities without clubbing, cyanosis, or edema. No joint tenderness, effusion, or edema noted. No calf tenderness. Negative Homans sign bilaterally. NEUROLOGICAL: Awake and alert. No focal deficit noted. Motor and sensory grossly within normal limits. 3 out of 5 muscle strength in all muscle groups. Normal speech. Hospital Course Acute renal failure - creatinine on admission (04/08) 6.36 -> (04/09) 6.05 -> (04/10) 5.04 -> (04/11) 4.18 -> (04/12) 2.84 -> (04/13) 2.2 - Continue IV hydration - consult renal, appreciate assistance - per nephrology: Acute renal failure appears to be related to intravascular volume depletion in setting of poor oral intake and diarrhea. Has been on Lisinopril as well as Aldactone/HCTZ at home that is likely contributing as well. - renal US reviewed and reveals: Echogenic kidneys suggesting medical renal disease. Multiple bilateral renal cysts. Unremarkable urinary bladder - recheck BMP in AM - palliative care consulted, appreciate assistance - patient DNR Dehydration as above DM2 (diabetes mellitus, type 2) Hold oral diabetic medication sliding scale coverage if needed patient hypoglycemia continue D5 change IV fluid to NS Monitor glucose encourage PO intake continue Remeron for appetite stimulant HTN (hypertension) will hold blood pressure meds as is running low and in renal failure Sacral ulcer was on treatment by home health at home for a few months daughter not sure if was any improvement Patient seen by Dr. Barrett with wound care who has ordered dressing changes, santyl and Dakins Appetite loss continue Remeron change diet to regular diet- still poor PO intake discussed with patient and family regarding possibility of PEG tube- they are not interested in PEG tube Also discussed with patient and family the nature decline and option of hospice patient and family interested in hospice meeting consult ordered Family has chosen DC home with hospice services Diarrhea secondary to C diff initially was constipated then took magnesium citrate OTC 04/03/17 since then has been having diarrhea which is now green in color C diff positive- (04/13) start Flagyl stool eosinophil negative Stool Cryptosporidium pending Stool Giardia negative Stool negative for occult blood 04/12 diarrhea improving patient has only has 2 BMs in the past 24 hours Hyperkalemia- resolved Potassium increased to 6.3 (04/10) -> (04/11) -> (04/12) 3.5 -> (04/13) 3.6 04/10 Kayexalate 30 ml x 1 patient also followed by nephrology Pt Condition on Discharge: Guarded Discharge Disposition: Hospice/ Home Discharge Instructions DIET: Follow Instructions for: As Tolerated, No Restrictions Activities you can perform: Regular-No Restrictions Follow up Referrals: PCP Follow-up - [address] Bee New Medications: Collagenase (Santyl) 250 Unit/Gram Oin 1 APPLIC TOPICAL DAILY PRN for DRESSING CHANGE, #1 TUBE 0 Refills Metronidazole (Flagyl) 500 Mg Tab 500 MG PO Q8HR for C diff diarrhea for 14 Days, #42 TAB 0 Refills Sodium Hypochlorite Topical (Dakins Solution Quarter Strength Topical) 0.125% Soln 1 ML TOPICAL DAILY PRN for DRESSING CHANGE, #1 BOTTLE 0 Refills Continued Medications: Amitriptyline (Amitriptyline) 50 Mg Tab 50 MG PO HS, TAB Ezetimibe (Zetia) 10 Mg Tab 10 MG PO DAILY, #30 TAB 0 Refills Mirtazapine (Mirtazapine) 15 Mg Tab 30 MG PO HS for appetite stimulant/ depression, #30 TAB 0 Refills Peggs-3 Fatty Acids (Fish Oil) 1,000 Mg Cap 1000 MG PO DAILY Tramadol (Tramadol) 50 Mg Tab 50 MG PO BID PRN for PAIN, TAB 0 Refills Discontinued Medications: Glimepiride (Glimepiride) 1 Mg Tab 1 MG PO BID for Blood Sugar Management, #30 TAB 0 Refills Take with breakfast or first main meal Lisinopril (Lisinopril) 10 Mg Tab 10 MG PO DAILY, #30 TAB 0 Refills Mupirocin Topical (Mupirocin Topical) 2 % Oint 1 APPLIC TOPICAL BID for Mgmt Bacterial Infection for 10 Days, #1 TUBE 0 Refills apply to buttock wound BID for 10 days Nystatin Topical (Nystatin Topical) 100,000 unit/gm Cream 1 APPLIC TOPICAL TID for Infection, #15 GM 0 Refills Spironolactone-Hydrochlorothiazide (Spironolactone-Hydrochlorothiazide) 25-25 Mg Tab 1 TAB PO DAILY, #30 TAB 0 Refills Additional Information sacral wound dressing changes: PLEASE CLEAN & DRESS WOUNDS DAILY & INITIAL & DATE DRESSINGS. CLEAN ALL WOUNDS WITH DAKIN SOLUTION 1/4 STRENGTH CLEAN THE SACRAL ULCER WITH DAKIN SOLUTION AND LEAVE DAKIN SOAKED GAUZE IN WOUND BED FOR ABOUT 5 MINS. AFTER THIS TIME HAS PASSED SKIN PREP & APPLY NICKEL SIZED SANTYL TO GAUZE AND MOISTENED GAUZE & COVER WITH ABD PADS AND TAPE. FOR SMALLER WOUNDS APPLY SKIN PREP DRESS WITH OPTIFOAM BASIC REPOSITION PATIENT OR INSTRUCT HER TO SHIFT OFF HER SACRUM ONCE PER HOUR & PROVIDE ADDITIONAL PADDING (IN THE AREA OF THE WOUND PLEASE MOISTURIZE LOWER EXTREMITY AFTER CLEANSING WITH SHAVING CREAM AND MOIST WARM RAG. SKIN PREP THE HEELS AND APPLY HEEL RAISER BOOTS BILATERALLY D/C BACTROBAN / NYSTATIN Sandy Vyas Apr 13, 2017 07:45 Jacky Soto MD Apr 14, 2017 10:05
--- NOTE | 2017-04-13 07:51 | HHI.PR ---
Subjective Remarks Patient awake and alert offers no specific complaints only 2 BMs over the past 24 hours c diff positive Objective Vitals Vital Signs Date Time Temp Pulse Resp B/P (MAP) Pulse Ox O2 Delivery O2 Flow Rate FiO2 04/13/17 04:00 97.6 90 17 94/50 (65) 100 04/13/17 00:00 98.5 83 16 98/54 (69) 97 04/12/17 20:00 97.7 111 17 105/57 (73) 95 04/12/17 16:00 97.9 99 17 117/50 (72) 100 04/12/17 12:00 97.3 88 18 89/54 (66) 04/12/17 08:00 97.5 80 17 91/54 (66) 95 Result Diagram: 04/10/17 1316 04/13/17 0307 Other Results Laboratory Tests Test 04/10/17 13:16 04/10/17 19:00 04/10/17 22:15 04/11/17 04:10 White Blood Count 7.3 TH/MM3 Red Blood Count 3.92 MIL/MM3 Hemoglobin 10.0 GM/DL Hematocrit 31.2 % Mean Corpuscular Volume 79.7 FL Mean Corpuscular Hemoglobin 25.7 PG Mean Corpuscular Hemoglobin Concent 32.2 % Red Cell Distribution Width 20.8 % Platelet Count 275 TH/MM3 Mean Platelet Volume 7.6 FL Blood Urea Nitrogen 73 MG/DL 58 MG/DL Creatinine 5.04 MG/DL 4.18 MG/DL Random Glucose 149 MG/DL 114 MG/DL Albumin 2.2 GM/DL Calcium Level 9.6 MG/DL 8.9 MG/DL Phosphorus Level 3.7 MG/DL 3.1 MG/DL Sodium Level 135 MEQ/L 135 MEQ/L Potassium Level 6.3 MEQ/L 4.4 MEQ/L 4.9 MEQ/L Chloride Level 103 MEQ/L 106 MEQ/L Carbon Dioxide Level 23.2 MEQ/L 19.4 MEQ/L Anion Gap 9 MEQ/L 10 MEQ/L Estimat Glomerular Filtration Rate 10 ML/MIN 12 ML/MIN Parathyroid Hormone (Intact) 47.1 PG/ML Eosinophil Stool Smear NONE SEEN /HPF Stool C. difficile Toxin (PCR) POSITIVE Stl C. difficile Toxin Epiderm 027 PRESUMPTIVE NEGATIVE Magnesium Level 2.4 MG/DL Test 04/11/17 12:00 04/12/17 08:06 04/13/17 03:07 Urine Eosinophils NONE SEEN /HPF Blood Urea Nitrogen 43 MG/DL 31 MG/DL Creatinine 2.84 MG/DL 2.20 MG/DL Random Glucose 109 MG/DL 80 MG/DL Calcium Level 9.0 MG/DL 8.6 MG/DL Sodium Level 143 MEQ/L 142 MEQ/L Potassium Level 3.5 MEQ/L 3.6 MEQ/L Chloride Level 111 MEQ/L 112 MEQ/L Carbon Dioxide Level 24.8 MEQ/L 21.7 MEQ/L Anion Gap 7 MEQ/L 8 MEQ/L Estimat Glomerular Filtration Rate 19 ML/MIN 26 ML/MIN Lactic Acid Level 1.2 mmol/L Imaging Last 24 hours Impressions Chest X-Ray 04/08/17 0000 Signed Impressions: Service Date/Time: Saturday, April 08, 2017 17:26 - CONCLUSION: No acute disease. Chico Saldana MD Objective Remarks GENERAL: This is an obese, well-developed patient, in no apparent distress. SKIN: sacral ulcer dressing per wound care present dry and intact CARDIOVASCULAR: Regular rate and rhythm RESPIRATORY: Clear to auscultation. Breath sounds equal bilaterally. GASTROINTESTINAL: Abdomen soft, non-tender, nondistended. No hepato-splenomegaly , or palpable masses. No guarding. MUSCULOSKELETAL: Extremities without clubbing, cyanosis, or edema. No joint tenderness, effusion, or edema noted. No calf tenderness. Negative Homans sign bilaterally. NEUROLOGICAL: Awake and alert. No focal deficit noted. Motor and sensory grossly within normal limits. 3 out of 5 muscle strength in all muscle groups. Normal speech. Procedures none A/P Problem List: (1) Acute renal failure ICD Codes: N17.9 - Acute kidney failure, unspecified Plan: Acute renal failure - creatinine on admission (04/08) 6.36 -> (04/09) 6.05 -> (04/10) 5.04 -> (04/11) 4.18 -> (04/12) 2.84 -> (04/13) 2.2 - Continue IV hydration - consult renal, appreciate assistance - per nephrology: Acute renal failure appears to be related to intravascular volume depletion in setting of poor oral intake and diarrhea. Has been on Lisinopril as well as Aldactone/HCTZ at home that is likely contributing as well. - renal US reviewed and reveals: Echogenic kidneys suggesting medical renal disease. Multiple bilateral renal cysts. Unremarkable urinary bladder - recheck BMP in AM - palliative care consulted, appreciate assistance - patient DNR Dehydration as above DM2 (diabetes mellitus, type 2) Hold oral diabetic medication sliding scale coverage if needed patient hypoglycemia continue D5 change IV fluid to NS Monitor glucose encourage PO intake continue Remeron for appetite stimulant HTN (hypertension) will hold blood pressure meds as is running low and in renal failure Sacral ulcer was on treatment by home health at home for a few months daughter not sure if was any improvement Patient seen by Dr. Barrett with wound care who has ordered dressing changes, santyl and Dakins Appetite loss continue Remeron change diet to regular diet- still poor PO intake discussed with patient and family regarding possibility of PEG tube- they are not interested in PEG tube Also discussed with patient and family the nature decline and option of hospice patient and family interested in hospice meeting consult ordered Family has chosen [facility] home with hospice services Diarrhea secondary to C diff initially was constipated then took magnesium citrate OTC 04/03/17 since then has been having diarrhea which is now green in color C diff positive- (04/13) start Flagyl stool eosinophil negative Stool Cryptosporidium pending Stool Giardia negative Stool negative for occult blood 04/12 diarrhea improving patient has only has 2 BMs in the past 24 hours Hyperkalemia- resolved Potassium increased to 6.3 (04/10) -> (04/11) -> (04/12) 3.5 -> (04/13) 3.6 04/10 Kayexalate 30 ml x 1 patient also followed by nephrology (2) Dehydration ICD Codes: E86.0 - Dehydration Status: Acute Plan: as above (3) DM2 (diabetes mellitus, type 2) ICD Codes: E11.9 - Type 2 diabetes mellitus without complications Status: Chronic Plan: see above (4) HTN (hypertension) ICD Codes: I10 - Essential (primary) hypertension Status: Chronic Plan: see above (5) Sacral ulcer ICD Codes: L98.429 - Non-pressure chronic ulcer of back with unspecified severity Status: Chronic Plan: see above (6) Appetite loss ICD Codes: R63.0 - Anorexia Plan: see above (7) Diarrhea ICD Codes: R19.7 - Diarrhea, unspecified Plan: see above (8) Hyperkalemia ICD Codes: E87.5 - Hyperkalemia Plan: see above Assessment and Plan Patient examined. Assessment and plan formulated with Sandy Vyas PA-C. I agree with the above. d/c with hospice. arrangements made. family requested tomorrow. Problem Qualifiers (1) Sacral ulcer: Qualified Codes: L98.429 - Non-pressure chronic ulcer of back with unspecified severity Sandy Vyas Apr 13, 2017 07:51 Jacky Soto MD Apr 13, 2017 15:09
[2017-04-13 08:00] VITALS: BP 95/53; PULSE 89; RESP 16; TEMP 95.7; O2SAT 95
[2017-04-13] MEDS: SODIUM CHLORIDE 0.9% FLUSH 10 ML FLUSH IV FLUSH SCH ×2 (09:00→21:00)
[2017-04-13] MEDS: EZETIMIBE 10 MG TAB PO SCH (09:04)
[2017-04-13] MEDS: metroNIDAZOLE 500 MG TAB PO SCH ×3 (09:04→22:26)
[2017-04-13] MEDS: DOCUSATE SODIUM 50 MG/SENNA 8.6 MG TAB PO SCH ×2 (09:04→22:18)
[2017-04-13] MEDS: HEPARIN SODIUM - SQ 10,000 UNITS/ML VIAL SQ SCH ×2 (09:05→22:20)
[2017-04-13 12:00] VITALS: BP 108/61; PULSE 104; RESP 17; TEMP 95.6; O2SAT 99
[2017-04-13] MEDS: SODIUM CHLOR 0.45% 1000 ML INJ 1,000 ML IV SCH (14:50)
[2017-04-13 16:00] VITALS: BP 97/55; PULSE 94; RESP 17; TEMP 96.3; O2SAT 99
[2017-04-13] MEDS: MIRTAZAPINE 15 MG TAB PO SCH (22:18)
[2017-04-13] MEDS: AMITRIPTYLINE HCL 50 MG TAB PO SCH (22:18)
[2017-04-13 22:33] LABS: ALBUMIN SPE 2.82 GM/DL (3.50-5.00); ALPHA 1 GLOBULIN 0.42 GM/DL (0.11-0.29); ALPHA 2 GLOBULIN 1.17 GM/DL (0.22-1.00)
[2017-04-13 22:34] LABS: BETA GLOBULINS (SPE) 1.06 GM/DL (0.53-1.03)
[2017-04-13 23:48] VITALS: PULSE 84
[2017-04-14 00:14] VITALS: BP 101/57; PULSE 109; RESP 20; TEMP 97.2; O2SAT 98
[2017-04-14 04:00] VITALS: BP 103/58; PULSE 118; RESP 20; TEMP 96.8; O2SAT 96
[2017-04-14] MEDS: SODIUM CHLOR 0.45% 1000 ML INJ 1,000 ML IV SCH (04:33)
[2017-04-14] MEDS: HEPARIN SODIUM - SQ 10,000 UNITS/ML VIAL SQ SCH (08:03)
[2017-04-14] MEDS: metroNIDAZOLE 500 MG TAB PO SCH (08:03)
[2017-04-14] MEDS: SODIUM CHLORIDE 0.9% FLUSH 10 ML FLUSH IV FLUSH SCH (08:04)
[2017-04-14] MEDS: DOCUSATE SODIUM 50 MG/SENNA 8.6 MG TAB PO SCH (08:04)
[2017-04-14] MEDS: EZETIMIBE 10 MG TAB PO SCH (08:04)
[2017-04-14 08:30] VITALS: BP 84/46; PULSE 76; RESP 16; TEMP 96.9; O2SAT 100
== END 2017-04-14 12:37 | disposition hospice, home (50) | DRG 683 ==
LOC: NEPE 14:39 → NEDA 20:24 → N07A 23:28
PROVIDERS: ADMIT Hospitalist; ATTEND Hospitalist
PROC: 05H633Z Insertion of Infusion Device into Left Subclavian Vein, Percutaneous Approach (ICD-10-PCS; principal; 2017-04-10)
DX: N17.9 Acute kidney failure, unspecified (principal); A04.72 Enterocolitis due to Clostridium difficile, not specified as recurrent; L89.159 Pressure ulcer of sacral region, unspecified stage; I95.9 Hypotension, unspecified; E11.22 Type 2 diabetes mellitus with diabetic chronic kidney disease; I13.0 Hypertensive heart and chronic kidney disease with heart failure and stage 1 through stage 4 chronic kidney disease, or unspecified chronic kidney disease; I50.9 Heart failure, unspecified; E87.1 Hypo-osmolality and hyponatremia; E11.649 Type 2 diabetes mellitus with hypoglycemia without coma; E87.5 Hyperkalemia; E86.0 Dehydration; N18.4 Chronic kidney disease, stage 4 (severe); R63.0 Anorexia; E66.9 Obesity, unspecified; Z68.32 Body mass index [BMI] 32.0-32.9, adult; E78.5 Hyperlipidemia, unspecified; Z74.01 Bed confinement status; Z99.3 Dependence on wheelchair; Z66 Do not resuscitate; M19.90 Unspecified osteoarthritis, unspecified site; N28.1 Cyst of kidney, acquired; Z51.5 Encounter for palliative care
CPT/HCPCS: 36569; 71010; 74176; 76775; 76937; 80048; 80053; 80069; 81001; 82272; 82306; 82728; 82948; 83540; 83550; 83605; 83735; 83880; 83970; 84100; 84132; 84165; 85025; 85027; 86403; 87070; 87205; 87328; 87329; 87493; 94664; 99285; J1205; J1644; J1650; J7030; J7040; J7042; J7613